=== PATIENT | female | born 1945 | race Caucasian/White ===

== ENCOUNTER 2017-10-17 10:19 | Emergency (ER) | payer MEDICARE, OTHER ==
[~2017-10-17] VITALS: Ht 172.7 cm; Wt 58.1 kg
[~2017-10-17 10:19] MED LIST: ADVAIR 250-501 EACH INH; ASPIR 8181 MG PO; ASPIRIN325; ASPIRIN81 M2; AVINZA 30 MG CA30 MG PO; B-12500 MC1 PO; BACITRACIN 500U30 G1 TOP; BACTRIM 400-801 EACH PO; BACTRIM DS TAB1 EACH; BACTRIM DS TAB1 EACH PO; BENADRYL25 MG PO; BIOTIN1 MG PO; BIOTIN10000 MC1 PO; BUSPAR; CALCIUM 500 +1 EAC5 PO; CARISOPRODOL 3350 MG PO; CEFTIN 250 MG250 MG PO; CEFUROXIME250 MG PO; CELEXA 20 MG TA20 M1 PO; CELEXA 20 MG TA20 MG PO; COLACE100 MG; COREG3.125 MG PO; COUMADIN 5 MG TA5 M1; DALMANE15 MG; DALMANE30 MG PO; FLEXERIL PO; FLOVENT DISKUS50 MCG; GLUCOPHAGE500 MG PO; GLUCOSAMINE HC500 MG PO; GLYCOLAX POWDER17 G1 PO; HYDROCODON-ACE1 EAC4 PO; HYDROCODON-ACE1 EAC5 PO; HYDROCODON-ACE1 EAC7 PO; HYDROXYZINE HCL25 M1 PO; IRON325 M1 PO; KEFLEX500 MG PO; LASIX 40 MG TAB40 M2; LASIX 40 MG TAB40 M2 PO; LEVAQUIN 500 M500 M2 PO; LEVOTHROID137 MCG PO; LEVOTHYROXIN0.137 M1 PO; LISINOPRIL2.5 M1 PO; MACROBID 100 M100 M1 PO; MELATONIN3 MG PO; METFORMIN HCL500 MG PO; MIRALAX17 G1 PO; MIRALAX255 GM; MORPHINE SULFAT15 MG PO; MORPHINE SULFAT30 M5 PO; MS CONTIN 60 MG60 M1 PO; MS CONTIN15 MG PO; MULTI VITAMIN1 EACH PO; NEURONTIN 300300 M1 PO; NITROFURANTOIN100 MG PO; NITROFURANTOIN50 M4 PO; NORCO 10-325 T1 EACH PO; NORCO 5-325 TA1 EACH PO; NYSTATIN 1100000 U/M SW&SWALLOW; PERCOCET 5-3251 EACH PO; PERCOCET 7.5-31 EACH; PHENAZOPYRIDIN200 M2 PO; PLAVIX 75 MG TA75 M1 PO; POTASSIUM GLUC500 MG PO; PRILOSEC 20 MG20 MG PO; PROMETHAZINE HC25 M1 PO; PROMETHAZINE HC25 M2 PO; RESTORIL30 MG PO; SILVADENE20 GM TP; TRAMADOL; TRAZODONE 150150 M1 PO; ULTRA-LIGHT RO1 EACH MC; UNICOMPLEX M TA1 TA1 PO; VERAPAMIL HCL40 MG; VERAPAMIL HCL40 MG PO; XANAX 0.25 MG0.25 MG PO; XANAX1 MG PO; ZPAK PO; ZYRTEC10 M2; [UNRECOGNIZED DRUG - OTHER] PO; [UNRECOGNIZED DRUG - REMARK]
[2017-10-17] MEDS ORDERED: LYRICA 50 MG50 MG PO (10:35)
[2017-10-17] MEDS ORDERED: KEFLEX500 M1 PO (12:07)
[2017-10-17 12:23] VITALS: BP 168/62
== END 2017-10-17 12:24 | disposition home or self-care (01) ==
LOC: M.ERS 10:19
DX: S81.012A Laceration without foreign body, left knee, initial encounter (principal); E11.40 Type 2 diabetes mellitus with diabetic neuropathy, unspecified; J45.909 Unspecified asthma, uncomplicated; F32.9 Major depressive disorder, single episode, unspecified; F41.9 Anxiety disorder, unspecified; I25.10 Atherosclerotic heart disease of native coronary artery without angina pectoris; E03.9 Hypothyroidism, unspecified; Z86.14 Personal history of Methicillin resistant Staphylococcus aureus infection; Z85.42 Personal history of malignant neoplasm of other parts of uterus; Z90.710 Acquired absence of both cervix and uterus; Z96.652 Presence of left artificial knee joint; Z85.43 Personal history of malignant neoplasm of ovary; Z88.5 Allergy status to narcotic agent; Z91.041 Radiographic dye allergy status; Z88.1 Allergy status to other antibiotic agents; Z88.8 Allergy status to other drugs, medicaments and biological substances; Z91.02 Food additives allergy status; X58.XXXA Exposure to other specified factors, initial encounter; Y93.89 Activity, other specified; Y92.89 Other specified places as the place of occurrence of the external cause; Y99.8 Other external cause status

== ENCOUNTER 2017-10-21 10:32 | Emergency (ER) | payer MEDICARE, OTHER ==
[~2017-10-21] VITALS: Ht 172.7 cm; Wt 59.0 kg
[~2017-10-21 10:32] MED LIST changes: +KEFLEX500 M1 PO; +LYRICA 50 MG50 MG PO
[2017-10-21] MEDS ORDERED: PREDNISONE 20 M20 M1 PO (10:54)
[2017-10-21 11:05] VITALS: BP 176/91
== END 2017-10-21 11:05 | disposition home or self-care (01) ==
LOC: M.ERS 10:32
DX: R21 Rash and other nonspecific skin eruption (principal); E11.9 Type 2 diabetes mellitus without complications; J45.909 Unspecified asthma, uncomplicated; F32.9 Major depressive disorder, single episode, unspecified; F41.9 Anxiety disorder, unspecified; E03.9 Hypothyroidism, unspecified; I25.10 Atherosclerotic heart disease of native coronary artery without angina pectoris; Z96.652 Presence of left artificial knee joint; Z85.43 Personal history of malignant neoplasm of ovary; Z85.42 Personal history of malignant neoplasm of other parts of uterus; Z98.890 Other specified postprocedural states; Z88.4 Allergy status to anesthetic agent; Z91.041 Radiographic dye allergy status; Z91.018 Allergy to other foods; Z88.6 Allergy status to analgesic agent; Z88.1 Allergy status to other antibiotic agents; Z88.8 Allergy status to other drugs, medicaments and biological substances

== ENCOUNTER 2017-10-27 10:24 | Emergency (ER) | payer MEDICARE, OTHER ==
[~2017-10-27] VITALS: Ht 172.7 cm; Wt 59.0 kg
[~2017-10-27 10:24] MED LIST changes: +PREDNISONE 20 M20 M1 PO
[2017-10-27] MEDS ORDERED: FLEXERIL PO (10:38)
[2017-10-27] MEDS ORDERED: KEFLEX250 MG PO (10:38)
[2017-10-27] MEDS ORDERED: ARICEPT 5 MG TAB5 MG PO (10:38)
[2017-10-27] MEDS ORDERED: OMEPRAZOLE40 MG PO (10:39)
[2017-10-27] MEDS ORDERED: SERTRALINE HCL50 MG PO (10:39)
[2017-10-27] MEDS ORDERED: CLEOCIN HCL150 MG PO (13:07)
[2017-10-27 13:29] VITALS: BP 127/55
== END 2017-10-27 13:30 | disposition home or self-care (01) ==
LOC: M.ERS 10:24
DX: S81.012D Laceration without foreign body, left knee, subsequent encounter (principal); E11.9 Type 2 diabetes mellitus without complications; E03.9 Hypothyroidism, unspecified; I25.10 Atherosclerotic heart disease of native coronary artery without angina pectoris; F32.9 Major depressive disorder, single episode, unspecified; F41.9 Anxiety disorder, unspecified; J45.909 Unspecified asthma, uncomplicated; Z85.42 Personal history of malignant neoplasm of other parts of uterus; Z85.43 Personal history of malignant neoplasm of ovary; Z88.5 Allergy status to narcotic agent; Z91.040 Latex allergy status; Z88.8 Allergy status to other drugs, medicaments and biological substances; Z98.890 Other specified postprocedural states; Z90.710 Acquired absence of both cervix and uterus; Z86.14 Personal history of Methicillin resistant Staphylococcus aureus infection; Z96.652 Presence of left artificial knee joint; X58.XXXD Exposure to other specified factors, subsequent encounter

== ENCOUNTER 2017-11-07 10:09 | Emergency (ER) | payer MEDICARE, OTHER ==
[~2017-11-07] VITALS: Ht 157.5 cm; Wt 68.0 kg
[~2017-11-07 10:09] MED LIST changes: +ARICEPT 5 MG TAB5 MG PO; +CLEOCIN HCL150 MG PO; +KEFLEX250 MG PO; +OMEPRAZOLE40 MG PO; +SERTRALINE HCL50 MG PO
[2017-11-07 10:40] VITALS: BP 152/78
== END 2017-11-07 10:41 | disposition home or self-care (01) ==
LOC: M.ERS 10:09
DX: S81.012D Laceration without foreign body, left knee, subsequent encounter (principal); E11.9 Type 2 diabetes mellitus without complications; E03.9 Hypothyroidism, unspecified; J45.909 Unspecified asthma, uncomplicated; F32.9 Major depressive disorder, single episode, unspecified; F41.9 Anxiety disorder, unspecified; I25.10 Atherosclerotic heart disease of native coronary artery without angina pectoris; Z90.710 Acquired absence of both cervix and uterus; Z85.43 Personal history of malignant neoplasm of ovary; Z96.652 Presence of left artificial knee joint; Z86.14 Personal history of Methicillin resistant Staphylococcus aureus infection; X58.XXXD Exposure to other specified factors, subsequent encounter

== ENCOUNTER 2017-11-13 09:53 | Emergency (ER) | payer MEDICARE, OTHER ==
[~2017-11-13] VITALS: Ht 170.2 cm; Wt 68.0 kg
[2017-11-13 10:33] LABS: ABSOLUTE EOSINOPHILS 0.2 thou/uL (0.0-0.7); EOSINOPHILS 2.1 %; HEMOGLOBIN 10.7 gm/dL (12.0-15.0); NUCLEATED RBCS 0 /100WBC
[2017-11-13 10:36] LABS: ABSOLUTE BASOPHILS 0.1 thou/uL (0.0-0.2); ABSOLUTE LYMPHOCYTES 0.8 thou/uL (0.8-5.3); ABSOLUTE MONOCYTES 0.7 thou/uL (0.0-1.2); ABSOLUTE NEUTROPHILS 5.6 thou/uL (1.6-8.1); HEMATOCRIT 32.1 % (37.0-47.0); LYMPHOCYTES 10.4 %; MCH 33.9 pg (26.0-34.0); MCHC 33.3 g/dL (28.0-37.0); MCV 101.7 fL (80.0-100.0); MONOCYTES 9.3 %; MPV 6.3 fl. (7.2-11.1); PLATELET COUNT* 295 thou/uL (150-400); POLYS 77.2 %; RBC 3.16 mil/uL (4.20-5.00); RDW-CV 18.5 % (10.5-14.5); WBC 7.2 thou/uL (4.0-11.0)
[2017-11-13 10:42] LABS: APTT 25.4 Seconds (25.0-31.3); PROTIME 9.6 Seconds (9.20-11.50)
[2017-11-13 10:44] LABS: CALCIUM 8.9 mg/dL (8.5-10.1); CREATININE 0.6 mg/dL (0.6-1.3); POTASSIUM 3.6 mmol/L (3.5-5.1)
[2017-11-13 10:47] LABS: ALBUMIN 3.2 g/dL (3.4-5.0); TOTAL BILIRUBIN 0.1 mg/dL (<0.1-1.0); TOTAL PROTEIN 6.6 g/dL (6.4-8.2)
[2017-11-13 10:55] LABS: URINE BILIRUBIN NEGATIVE (Negative); URINE BLOOD NEGATIVE (Negative); URINE CLARITY CLEAR; URINE COLOR YELLOW; URINE GLUCOSE-RANDOM NEGATIVE (Negative); URINE KETONES NEGATIVE (Negative); URINE LEUKOCYTES-REFLEX NEGATIVE (Negative); URINE NITRITE-REFLEX NEGATIVE (Negative); URINE PROTEIN NEGATIVE (Negative); URINE SPECIFIC GRAVITY 1.015 (1.005-1.030); URINE UROBILINOGEN 0.2 E.U./dl (0.2-1.0)
[2017-11-13 11:08] VITALS: BP 153/76
--- NOTE | 2017-11-13 14:56 | EKG ---
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 TRAN : 1945 Requested By: Maverick Mandujano Order Number: [id number] MD: Indra Jones Measurements Intervals [place] Rate: 87 P: 78 [place]: 167 QRS: -40 QRSD: 114 T: 83 QT: 350 QTc: 421 Interpretive Statements Sinus rhythm LVH with secondary repolarization abnormality Anterior Q waves, possibly due to LVH Compared to ECG 11/13/2016 12:45:37 Left ventricular hypertrophy now present T-wave abnormality no longer present Prolonged QT interval no longer present Electronically Signed On 11-13-2017 14:56:02 CONFERENCE PRODUCER by Indra Jones [email or web address] <ELECTRONICALLY SIGNED> By: Indra Jones MD, [facility] 11/13/17 1456 1022 1022 Indra Jones MD, [facility] /EPI
== END 2017-11-13 11:08 | disposition home or self-care (01) ==
LOC: M.ERS 09:53
PROVIDERS: Family Medicine
DX: Z71.1 Person with feared health complaint in whom no diagnosis is made (principal); E11.9 Type 2 diabetes mellitus without complications; M79.7 Fibromyalgia; J45.909 Unspecified asthma, uncomplicated; F32.9 Major depressive disorder, single episode, unspecified; F41.9 Anxiety disorder, unspecified; I25.10 Atherosclerotic heart disease of native coronary artery without angina pectoris; E03.9 Hypothyroidism, unspecified; Z96.652 Presence of left artificial knee joint; Z90.49 Acquired absence of other specified parts of digestive tract; Z85.43 Personal history of malignant neoplasm of ovary; Z90.710 Acquired absence of both cervix and uterus; Z85.42 Personal history of malignant neoplasm of other parts of uterus; Z86.14 Personal history of Methicillin resistant Staphylococcus aureus infection

== ENCOUNTER → 2017-11-25 | Outpatient (CLI) | payer MEDICARE, OTHER ==
[~2017-11-25] MED LIST changes: +AMARYL2 MG PO; +BIOTIN0.5 GM PO; +CARAFATE 1 GM TA1 G1 PO; +CEPHALEXIN250 MG PO; +CIPROFLOXACIN500 M1 PO; +CITRATE OF MAG296 ML PO; +CONSTULOSE10 GM/152 PO; +FLAGYL500 MG PO; +FOLBIC RF TABL1 EACH PO; +HYDROCODONE-AP1 EAC6 PO; +INDOCIN25 MG/5 ML PO; +INDOMETHACIN 5050 M1 PO; +KLOR-CON 1010 MEQ PO; +LACTULOSE10 GM/152 PO; +LEVAQUIN 750 M750 MG PO; +LIPITOR 20 MG T20 M1 PO; +MAGOX 400400 MG PO; +MUCINEX600 MG PO; +NABUMETONE 750750 M1 PO; +TUMS PO; +ULTRAM 50MG TAB50 MG PO; +ZOFRAN ODT4 MG SUBLING
== END ==
LOC: M.WC 01:21
DX: T81.89XA Other complications of procedures, not elsewhere classified, initial encounter (principal); S81.002A Unspecified open wound, left knee, initial encounter; E11.9 Type 2 diabetes mellitus without complications; J45.909 Unspecified asthma, uncomplicated; I25.10 Atherosclerotic heart disease of native coronary artery without angina pectoris; E03.9 Hypothyroidism, unspecified; F32.9 Major depressive disorder, single episode, unspecified; F41.9 Anxiety disorder, unspecified; Z85.43 Personal history of malignant neoplasm of ovary; Z85.42 Personal history of malignant neoplasm of other parts of uterus; Z90.710 Acquired absence of both cervix and uterus; Z96.652 Presence of left artificial knee joint; W19.XXXA Unspecified fall, initial encounter; Y93.89 Activity, other specified; Y92.89 Other specified places as the place of occurrence of the external cause; Y99.8 Other external cause status; Y83.8 Other surgical procedures as the cause of abnormal reaction of the patient, or of later complication, without mention of misadventure at the time of the procedure

== ENCOUNTER 2017-12-06 09:54 | Emergency (ER) | payer MEDICARE, OTHER ==
[~2017-12-06] VITALS: Ht 172.7 cm; Wt 60.8 kg
[~2017-12-06 09:54] MED LIST changes: -AMARYL2 MG PO; -BIOTIN0.5 GM PO; -CARAFATE 1 GM TA1 G1 PO; -CEPHALEXIN250 MG PO; -CIPROFLOXACIN500 M1 PO; -CITRATE OF MAG296 ML PO; -CONSTULOSE10 GM/152 PO; -FLAGYL500 MG PO; -FOLBIC RF TABL1 EACH PO; -HYDROCODONE-AP1 EAC6 PO; -INDOCIN25 MG/5 ML PO; -INDOMETHACIN 5050 M1 PO; -KLOR-CON 1010 MEQ PO; -LACTULOSE10 GM/152 PO; -LEVAQUIN 750 M750 MG PO; -LIPITOR 20 MG T20 M1 PO; -MAGOX 400400 MG PO; -MUCINEX600 MG PO; -NABUMETONE 750750 M1 PO; -TUMS PO; -ULTRAM 50MG TAB50 MG PO; -ZOFRAN ODT4 MG SUBLING
[2017-12-06 10:14] LABS: URINE BILIRUBIN NEGATIVE (Negative); URINE BLOOD 2+ (Negative); URINE CLARITY CLEAR; URINE COLOR YELLOW; URINE GLUCOSE-RANDOM NEGATIVE (Negative); URINE KETONES NEGATIVE (Negative); URINE LEUKOCYTES-REFLEX NEGATIVE (Negative); URINE NITRITE-REFLEX NEGATIVE (Negative); URINE PROTEIN NEGATIVE (Negative); URINE SPECIFIC GRAVITY 1.015 (1.005-1.030); URINE UROBILINOGEN 0.2 E.U./dl (0.2-1.0)
[2017-12-06 10:21] LABS: CASTS None Seen /LPF (None Seen); CRYSTALS None Seen /LPF (None Seen); MUCUS 0-3 Light strn/LPF (None Seen); SQUAMOUS >10 Many /LPF (0-3)
[2017-12-06 10:22] LABS: BACTERIA-REFLEX None Seen /HPF (None Seen); URINE RBC >20 Many /HPF (0-2); URINE WBC-REFLEX 0-5 Rare /HPF (0-5)
[2017-12-06 11:08] LABS: ABSOLUTE BASOPHILS 0.1 thou/uL (0.0-0.2); ABSOLUTE EOSINOPHILS 0.1 thou/uL (0.0-0.7); ABSOLUTE LYMPHOCYTES 0.7 thou/uL (0.8-5.3); ABSOLUTE MONOCYTES 0.5 thou/uL (0.0-1.2); ABSOLUTE NEUTROPHILS 4.4 thou/uL (1.6-8.1); BASOPHILS 1.2 %; EOSINOPHILS 2.5 %; HEMATOCRIT 28.9 % (37.0-47.0); HEMOGLOBIN 9.5 gm/dL (12.0-15.0); LYMPHOCYTES 11.8 %; MCH 33.4 pg (26.0-34.0); MCHC 32.8 g/dL (28.0-37.0); MCV 101.8 fL (80.0-100.0); MONOCYTES 8.7 %; MPV 6.7 fl. (7.2-11.1); NUCLEATED RBCS 0 /100WBC; PLATELET COUNT* 378 thou/uL (150-400); POLYS 75.8 %; RBC 2.84 mil/uL (4.20-5.00); RDW-CV 17.7 % (10.5-14.5); WBC 5.8 thou/uL (4.0-11.0)
[2017-12-06 11:13] LABS: CALCIUM 8.8 mg/dL (8.5-10.1); CREATININE 0.7 mg/dL (0.6-1.3); POTASSIUM 3.7 mmol/L (3.5-5.1)
[2017-12-06 11:17] LABS: ALBUMIN 3.1 g/dL (3.4-5.0); TOTAL BILIRUBIN 0.2 mg/dL (<0.1-1.0); TOTAL PROTEIN 6.2 g/dL (6.4-8.2)
[2017-12-06 12:35] VITALS: BP 153/82
== END 2017-12-06 12:36 | disposition home or self-care (01) ==
LOC: M.ERS 09:54
PROVIDERS: Family Medicine
DX: M54.9 Dorsalgia, unspecified (principal); E11.9 Type 2 diabetes mellitus without complications; M79.7 Fibromyalgia; I25.10 Atherosclerotic heart disease of native coronary artery without angina pectoris; F32.9 Major depressive disorder, single episode, unspecified; E03.9 Hypothyroidism, unspecified; J45.909 Unspecified asthma, uncomplicated; F41.9 Anxiety disorder, unspecified; Z90.710 Acquired absence of both cervix and uterus; Z88.8 Allergy status to other drugs, medicaments and biological substances; Z88.5 Allergy status to narcotic agent; Z91.041 Radiographic dye allergy status; Z91.02 Food additives allergy status; Z96.652 Presence of left artificial knee joint; Z86.14 Personal history of Methicillin resistant Staphylococcus aureus infection

== ENCOUNTER → 2017-12-09 | Outpatient (CLI) | payer MEDICARE, OTHER ==
[~2017-12-09] MED LIST changes: +AMARYL2 MG PO; +BIOTIN0.5 GM PO; +CARAFATE 1 GM TA1 G1 PO; +CEPHALEXIN250 MG PO; +CIPROFLOXACIN500 M1 PO; +CITRATE OF MAG296 ML PO; +CONSTULOSE10 GM/152 PO; +FLAGYL500 MG PO; +FOLBIC RF TABL1 EACH PO; +HYDROCODONE-AP1 EAC6 PO; +INDOCIN25 MG/5 ML PO; +INDOMETHACIN 5050 M1 PO; +KLOR-CON 1010 MEQ PO; +LACTULOSE10 GM/152 PO; +LEVAQUIN 750 M750 MG PO; +LIPITOR 20 MG T20 M1 PO; +MAGOX 400400 MG PO; +MUCINEX600 MG PO; +NABUMETONE 750750 M1 PO; +TUMS PO; +ULTRAM 50MG TAB50 MG PO; +ZOFRAN ODT4 MG SUBLING
== END ==
LOC: M.WC 12-02 03:34
DX: T81.89XD Other complications of procedures, not elsewhere classified, subsequent encounter (principal); E11.9 Type 2 diabetes mellitus without complications; J45.909 Unspecified asthma, uncomplicated; E03.9 Hypothyroidism, unspecified; I25.10 Atherosclerotic heart disease of native coronary artery without angina pectoris; F32.9 Major depressive disorder, single episode, unspecified; F41.9 Anxiety disorder, unspecified; Z85.42 Personal history of malignant neoplasm of other parts of uterus; Z90.710 Acquired absence of both cervix and uterus; Z96.652 Presence of left artificial knee joint; Z85.43 Personal history of malignant neoplasm of ovary; Y83.8 Other surgical procedures as the cause of abnormal reaction of the patient, or of later complication, without mention of misadventure at the time of the procedure

== ENCOUNTER → 2017-12-16 | Outpatient (CLI) | payer MEDICARE, OTHER | LOC: M.WC 02:25 | DX: T81.89XD Other complications of procedures, not elsewhere classified, subsequent encounter (principal); E11.9 Type 2 diabetes mellitus without complications; E03.9 Hypothyroidism, unspecified; I25.10 Atherosclerotic heart disease of native coronary artery without angina pectoris; J45.909 Unspecified asthma, uncomplicated; F32.9 Major depressive disorder, single episode, unspecified; F41.9 Anxiety disorder, unspecified; Z90.710 Acquired absence of both cervix and uterus; Z85.43 Personal history of malignant neoplasm of ovary; Z96.652 Presence of left artificial knee joint; Y83.8 Other surgical procedures as the cause of abnormal reaction of the patient, or of later complication, without mention of misadventure at the time of the procedure ==

== ENCOUNTER → 2017-12-23 | Outpatient (CLI) | payer MEDICARE, OTHER | LOC: M.WC 02:54 | DX: T81.89XD Other complications of procedures, not elsewhere classified, subsequent encounter (principal); J45.909 Unspecified asthma, uncomplicated; F32.9 Major depressive disorder, single episode, unspecified; F41.9 Anxiety disorder, unspecified; I25.10 Atherosclerotic heart disease of native coronary artery without angina pectoris; E03.9 Hypothyroidism, unspecified; Z85.43 Personal history of malignant neoplasm of ovary; Y83.8 Other surgical procedures as the cause of abnormal reaction of the patient, or of later complication, without mention of misadventure at the time of the procedure ==

== ENCOUNTER → 2017-12-30 | Outpatient (CLI) | payer MEDICARE, OTHER | LOC: M.WC 00:33 | DX: T81.89XD Other complications of procedures, not elsewhere classified, subsequent encounter (principal); E11.9 Type 2 diabetes mellitus without complications; J45.909 Unspecified asthma, uncomplicated; F41.9 Anxiety disorder, unspecified; F32.9 Major depressive disorder, single episode, unspecified; I25.10 Atherosclerotic heart disease of native coronary artery without angina pectoris; E03.9 Hypothyroidism, unspecified; Z85.43 Personal history of malignant neoplasm of ovary; Z90.710 Acquired absence of both cervix and uterus; Y83.8 Other surgical procedures as the cause of abnormal reaction of the patient, or of later complication, without mention of misadventure at the time of the procedure ==

== ENCOUNTER → 2018-01-06 | Outpatient (CLI) | payer MEDICARE, OTHER | LOC: M.WC 01:41 | DX: T81.89XD Other complications of procedures, not elsewhere classified, subsequent encounter (principal); E11.9 Type 2 diabetes mellitus without complications; J45.909 Unspecified asthma, uncomplicated; F32.9 Major depressive disorder, single episode, unspecified; I25.10 Atherosclerotic heart disease of native coronary artery without angina pectoris; F41.9 Anxiety disorder, unspecified; E03.9 Hypothyroidism, unspecified; Z85.42 Personal history of malignant neoplasm of other parts of uterus; Z90.710 Acquired absence of both cervix and uterus; Y83.8 Other surgical procedures as the cause of abnormal reaction of the patient, or of later complication, without mention of misadventure at the time of the procedure ==

== ENCOUNTER → 2018-01-20 | Outpatient (CLI) | payer MEDICARE, OTHER | LOC: M.WC 03:08 | DX: T81.89XD Other complications of procedures, not elsewhere classified, subsequent encounter (principal); E11.9 Type 2 diabetes mellitus without complications; F32.9 Major depressive disorder, single episode, unspecified; J45.909 Unspecified asthma, uncomplicated; F41.9 Anxiety disorder, unspecified; I25.10 Atherosclerotic heart disease of native coronary artery without angina pectoris; E03.9 Hypothyroidism, unspecified; Z85.43 Personal history of malignant neoplasm of ovary; Z85.42 Personal history of malignant neoplasm of other parts of uterus; Z90.710 Acquired absence of both cervix and uterus; Y83.8 Other surgical procedures as the cause of abnormal reaction of the patient, or of later complication, without mention of misadventure at the time of the procedure ==

== ENCOUNTER → 2018-01-27 | Outpatient (CLI) | payer MEDICARE, OTHER | LOC: M.WC 01:29 | DX: T81.89XD Other complications of procedures, not elsewhere classified, subsequent encounter (principal); I25.10 Atherosclerotic heart disease of native coronary artery without angina pectoris; E03.9 Hypothyroidism, unspecified; J45.909 Unspecified asthma, uncomplicated; F41.9 Anxiety disorder, unspecified; F32.9 Major depressive disorder, single episode, unspecified; Z90.710 Acquired absence of both cervix and uterus; Z85.43 Personal history of malignant neoplasm of ovary; Z96.652 Presence of left artificial knee joint; Y83.8 Other surgical procedures as the cause of abnormal reaction of the patient, or of later complication, without mention of misadventure at the time of the procedure ==

== ENCOUNTER 2018-03-22 08:41 | Inpatient (IN) | payer MEDICARE, OTHER ==
[2018-03-22] VITALS (8 sets, daily range): BP systolic 85–129; BP diastolic 29–69
[~2018-03-22] VITALS: Ht 172.7 cm; Wt 62.3 kg
[~2018-03-22 08:41] MED LIST changes: -AMARYL2 MG PO; -BIOTIN0.5 GM PO; -CARAFATE 1 GM TA1 G1 PO; -CEPHALEXIN250 MG PO; -CIPROFLOXACIN500 M1 PO; -CITRATE OF MAG296 ML PO; -CONSTULOSE10 GM/152 PO; -FLAGYL500 MG PO; -FOLBIC RF TABL1 EACH PO; -HYDROCODONE-AP1 EAC6 PO; -INDOCIN25 MG/5 ML PO; -INDOMETHACIN 5050 M1 PO; -KLOR-CON 1010 MEQ PO; -LACTULOSE10 GM/152 PO; -LEVAQUIN 750 M750 MG PO; -LIPITOR 20 MG T20 M1 PO; -MAGOX 400400 MG PO; -MUCINEX600 MG PO; -NABUMETONE 750750 M1 PO; -TUMS PO; -ULTRAM 50MG TAB50 MG PO; -ZOFRAN ODT4 MG SUBLING
[2018-03-22] MEDS ORDERED: INDOCIN25 MG/5 ML PO (09:09)
[2018-03-22 09:49] LABS: HEMATOCRIT 35.1 % (37.0-47.0); HEMOGLOBIN 10.8 gm/dL (12.0-15.0); MCH 25.7 pg (26.0-34.0); MCHC 30.7 g/dL (28.0-37.0); MCV 83.7 fL (80.0-100.0); MPV 6.5 fl. (7.2-11.1); NUCLEATED RBCS 0 /100WBC; PLATELET COUNT* 574 thou/uL (150-400); RDW-CV 18.9 % (10.5-14.5); WBC 25.4 thou/uL (4.0-11.0)
[2018-03-22 10:00] LABS: ANION GAP 15 mmol/L (7-16); BUN 25 mg/dL (7-18); CHLORIDE 100 mmol/L (98-107); CO2 23 mmol/L (21-32); CREATININE 1.3 mg/dL (0.6-1.3); GLUCOSE 81 mg/dL (70-99); POTASSIUM 4.9 mmol/L (3.5-5.1); SODIUM 138 mmol/L (136-145)
[2018-03-22 10:08] LABS: ABSOLUTE BASOPHILS 0.3 thou/uL (0.0-0.2); ABSOLUTE EOSINOPHILS 0.3 thou/uL (0.0-0.7); ABSOLUTE LYMPHOCYTES 0.5 thou/uL (0.8-5.3); ABSOLUTE MONOCYTES 0.5 thou/uL (0.0-1.2); ABSOLUTE NEUTROPHILS 23.9 thou/uL (1.6-8.1); ANISOCYTOSIS 1+; PLATELET ESTIMATE INCREASED
[2018-03-22 10:11] LABS: ALBUMIN 3.5 g/dL (3.4-5.0); ALKALINE PHOSPHATASE 356 U/L (46-116); LIPASE 114 U/L (73-393); NT-PRO BRAIN NAT PEPTIDE 899 pg/mL (<300); SGOT 26 U/L (15-37); SGPT 20 U/L (30-65); TOTAL BILIRUBIN 0.4 mg/dL (<0.1-1.0); TOTAL PROTEIN 7.3 g/dL (6.4-8.2); TROPONIN-I LEVEL <0.06 ng/mL (<0.06)
[2018-03-22 10:15] LABS: ICTOTEST (BILI CONFIRMATORY) Positive (Negative); URINE BILIRUBIN 2+ (Negative); URINE BLOOD NEGATIVE (Negative); URINE CLARITY SL CLOUDY; URINE COLOR BROWN; URINE GLUCOSE-RANDOM NEGATIVE (Negative); URINE KETONES TRACE (Negative); URINE LEUKOCYTES-REFLEX NEGATIVE (Negative); URINE NITRITE-REFLEX NEGATIVE (Negative); URINE PROTEIN TRACE (Negative); URINE SPECIFIC GRAVITY 1.025 (1.005-1.030)
[2018-03-22 10:25] LABS: APTT 52.6 Seconds (25.0-31.3); INR 1.1; PROTIME 10.5 Seconds (9.20-11.50)
[2018-03-22 12:37] LABS: MAGNESIUM 2.9 mg/dL (1.8-2.4); PHOSPHORUS* 4.5 mg/dL (2.5-4.9)
[2018-03-22 14:44] LABS: URINE BLOOD NEGATIVE (Negative); URINE CLARITY CLEAR; URINE COLOR YELLOW; URINE GLUCOSE-RANDOM NEGATIVE (Negative); URINE KETONES NEGATIVE (Negative); URINE LEUKOCYTES-REFLEX NEGATIVE (Negative); URINE NITRITE-REFLEX NEGATIVE (Negative); URINE PROTEIN NEGATIVE (Negative); URINE SPECIFIC GRAVITY 1.025 (1.005-1.030); URINE UROBILINOGEN 0.2 E.U./dl (0.2-1.0)
[2018-03-22 14:48] LABS: ICTOTEST (BILI CONFIRMATORY) Negative (Negative); URINE BILIRUBIN 1+ (Negative)
[2018-03-22 16:56] LABS: BE -6.8 mmol/L (-2 to +3); PCO2 VENOUS 45.9 mmHg (41.0-51.0)
[2018-03-22 16:58] LABS: PO2 VENOUS 37.3 mmHg (35.0-45.0)
[2018-03-22 17:08] LABS: HEMATOCRIT 32.1 % (37.0-47.0); HEMOGLOBIN 9.9 gm/dL (12.0-15.0); MCH 25.9 pg (26.0-34.0); MCHC 30.9 g/dL (28.0-37.0); MPV 6.6 fl. (7.2-11.1); NUCLEATED RBCS 0 /100WBC; PLATELET COUNT* 542 thou/uL (150-400); RBC 3.82 mil/uL (4.20-5.00); RDW-CV 18.7 % (10.5-14.5); WBC 26.7 thou/uL (4.0-11.0)
[2018-03-22 17:14] LABS: CALCIUM 9.5 mg/dL (8.5-10.1); CREATININE 1.3 mg/dL (0.6-1.3); POTASSIUM 5.7 mmol/L (3.5-5.1)
[2018-03-22 17:16] LABS: APTT 59.3 Seconds (25.0-31.3); INR 1.1; PROTIME 10.7 Seconds (9.20-11.50)
[2018-03-22 17:19] LABS: MAGNESIUM 2.8 mg/dL (1.8-2.4); TOTAL BILIRUBIN 0.4 mg/dL (<0.1-1.0); TOTAL PROTEIN 6.2 g/dL (6.4-8.2)
[2018-03-22 17:33] LABS: ABSOLUTE LYMPHOCYTES 0.8 thou/uL (0.8-5.3); ABSOLUTE MONOCYTES 0.5 thou/uL (0.0-1.2); ABSOLUTE NEUTROPHILS 25.4 thou/uL (1.6-8.1)
[2018-03-22 17:34] LABS: ANISOCYTOSIS 1+; CLUMPED PLTS OCCASIONAL; OVALOCYTES Occasional; PLATELET ESTIMATE INCREASED; POIKILOCYTOSIS Occasional
[2018-03-23] VITALS (8 sets, daily range): BP systolic 110–129; BP diastolic 32–52
[2018-03-23 03:35] LABS: HEMATOCRIT 28.5 % (37.0-47.0); HEMOGLOBIN 8.8 gm/dL (12.0-15.0); MCV 83.8 fL (80.0-100.0); MPV 6.7 fl. (7.2-11.1); RBC 3.4 mil/uL (4.20-5.00); RDW-CV 18.6 % (10.5-14.5); WBC 13.1 thou/uL (4.0-11.0)
[2018-03-23 03:46] LABS: ALBUMIN 2.5 g/dL (3.4-5.0); CALCIUM 8.3 mg/dL (8.5-10.1); CREATININE 1.1 mg/dL (0.6-1.3); MAGNESIUM 2.1 mg/dL (1.8-2.4); TOTAL BILIRUBIN 0.3 mg/dL (<0.1-1.0); TOTAL PROTEIN 5.3 g/dL (6.4-8.2)
[2018-03-23 03:51] LABS: POTASSIUM 4.2 mmol/L (3.5-5.1)
--- NOTE | 2018-03-23 11:10 | EKG ---
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: : 1945 Requested By: John Blake Order Number: [id number] MD: Indra Jones Measurements Intervals [place] Rate: 77 P: 71 [place]: 170 QRS: -44 QRSD: 115 T: 188 QT: 366 QTc: 415 Interpretive Statements Sinus rhythm old septal VA nonspecific st changes Compared to ECG 11/13/2017 10:22:34 Left ventricular hypertrophy no longer present Electronically Signed On 03-23-2018 11:10:37 CDT by Indra Jones [email or web address] <ELECTRONICALLY SIGNED> By: Indra Jones MD, [facility] 03/23/18 1110 0932 0932 Indra Jones MD, [facility] /EPI
--- NOTE | 2018-03-23 14:48 | 2DMMODE ---
[place] [address] 2 D/M-MODE ECHOCARDIOGRAM Name: YIMI FULLER Room: [address] IN [facility]#: [id number] Admission: 03/22/18 Attend Phys: Aroldo Coker Discharge: Date of : 47 Date of Service: 03/23/18 1448 Report #: [id number] THIS REPORT FOR: //name// APPROVED REPORT Study performed: 03/23/2018 09:55:32 EXAM: Comprehensive 2D, Doppler, and color-flow Echocardiogram Patient Location: In-Patient Room #: 003 Status: routine BSA: 1.74 HR: 94 bpm BP: 114/32 mmHg Rhythm: NSR Other Information Study Quality: Good Indications Sepsis 2D Dimensions LVEF(%): 68.06 (>50%) IVSd: 12.54 (7-11mm) LVOT Diam: 19.20 (18-24mm) LVDd: 40.85 mm PWd: 9.56 (7-11mm) Ascending Ao: 25.42 (22-36mm) LVDs: 25.52 (25-40mm) Aortic Root: 27.81 mm Mccoy's LVEF: 68.06 % Volumes Left Atrial Volume (Systole) LA ESV Index: 48.80 mL/m2 Aortic Valve AoV Peak Dm.: 1.77 m/s AO Peak Gr.: 12.48 mmHg LVOT Max P.63 mmHg AO Mean Gr.: 7.28 mmHg LVOT Mean P.98 mmHg LVOT Max V: 1.38 m/s AO V2 VTI: 30.30 cm LVOT Mean V: 0.92 m/s JESSICA (VTI): 2.47 cm2 LVOT V1 VTI: 25.82 cm Mitral Valve E/A Ratio: 0.86 [place] [address] 2 D/M-MODE ECHOCARDIOGRAM Name: YIMI FULLER Room: [address] IN .R.#: [id number] Admission: 03/22/18 Attend Phys: Aroldo Coker Discharge: Date of : 47 Date of Service: 03/23/18 1448 Report #: [id number] MV Decel. Time: 241.85 ms MV E Max Dm.: 1.36 m/s MV PHT: 70.14 ms MVA (PHT): 3.14 cm2 TDI E/Lateral E': 13.60 E/Medial E': 9.07 Medial E' Dm.: 0.15 m/s Lateral E' Dm.: 0.10 m/s Pulmonary Valve PV Peak Dm.: 1.82 m/s PV Peak Gr.: 13.27 mmHg Tricuspid Valve TR Peak Gr.: 31.64 mmHg RVSP: 36.00 mmHg Left Ventricle The left ventricle is normal size. There is normal LV segmental wall motion. There is normal left ventricular wall thickness. Left ventricular systolic function is normal. The left ventricular ejection fraction is within the normal range. LVEF is 55-60%. Grade I - abnormal relaxation pattern. Right Ventricle The right ventricle is normal size. The right ventricular systolic function is normal. Atria Left atrium is moderately dilated. The right atrium size is normal. Aortic Valve The aortic valve is normal in structure. No aortic regurgitation is present. There is no aortic valvular stenosis. Mitral Valve There is mitral annular calcification. Mild mitral regurgitation. No evidence of mitral valve stenosis. Tricuspid Valve The tricuspid valve is normal in structure. Mild tricuspid regurgitation. The RVSP is 35-40 mmHg. Pulmonic Valve The pulmonary valve is normal in structure. [place] [address] 2 D/M-MODE ECHOCARDIOGRAM Name: ALINAYIMI MILAN Room: [address] IN .R.#: [id number] Admission: 03/22/18 Attend Phys: Aroldo Coker Discharge: Date of : 47 Date of Service: 03/23/18 1448 Report #: [id number] Great Vessels The aortic root is normal in size. IVC is normal in size and collapses with >50% inspiration Pericardium There is no pericardial effusion. <Conclusion> LVEF is 55-60%. Left atrium is moderately dilated. Mild mitral regurgitation. Mild tricuspid regurgitation. The RVSP is 35-40 mmHg. <ELECTRONICALLY SIGNED> By: Indra Jones MD, [facility] 03/23/18 1448 1448 1448 Indra Jones MD, [facility] /INF
[2018-03-23] MEDS ORDERED: LIPITOR 20 MG T20 M1 PO (18:35)
[2018-03-23] MEDS ORDERED: KEFLEX250 MG PO (18:36)
[2018-03-23] MEDS ORDERED: AMARYL2 MG PO (18:39)
[2018-03-23] MEDS ORDERED: CONSTULOSE10 GM/152 PO (18:40)
[2018-03-23] MEDS ORDERED: CARAFATE 1 GM TA1 G1 PO (18:40)
[2018-03-23 19:09] LABS: eGFR IF AFRICAN AMERICAN 65 (>59)
[2018-03-24] VITALS: BP 162/66; BP 95/49
[2018-03-24 03:44] VITALS: BP 141/56
[2018-03-24 05:34] LABS: CALCIUM 8.5 mg/dL (8.5-10.1); CREATININE 0.8 mg/dL (0.6-1.3); POTASSIUM 3.4 mmol/L (3.5-5.1)
--- NOTE | 2018-03-24 07:10 | CON ---
[address] [address] CONSULTATION Name: YIMI FULLER Room: [address] IN M.R.#: [id number] Admission: 03/22/18 Attend Phys: Aroldo Elam, Discharge: Date of : 47 Report #: [id number] THIS REPORT FOR: //name// CC: Live Elam DATE OF SERVICE: 03/23/2018 INFECTIOUS DISEASE CONSULTATION ATTENDING PHYSICIAN: Aroldo Elam MD REASON FOR CONSULTATION: Sepsis. HISTORY OF PRESENT ILLNESS: Chart reviewed, patient examined. This is a 72-year-old with history of diabetes mellitus type 2 as well as fibromyalgia who has somewhat of a vague history, presented to the Emergency Room complaining of cough for the last couple of days, had production of what she describes as yellowish sputum, however, and focused more on her abdominal related pain. Imaging suggested obstipation. She did have extensive amount of stool, which she has passed, large specimen. On questioning about fevers, she states she is having it for several days to weeks, although it is not clear, she has been afebrile since admission. On evaluation, she was found to have lactic acidemia and a markedly elevated white count of 25,000. Blood cultures were collected and they are sterile thus far. Urinalysis was unremarkable. CT showed atelectasis at the bases, could not exclude pneumonitis, previous cholecystectomy. Chest x-ray showed lungs to be clear. She was empirically started on antibiotics with cefepime, levofloxacin, vancomycin. She is quite uncomfortable at this point, difficult to try to get additional history. She is quite restless. ALLERGIES: LISTED TO MUSHROOMS, CONTRAST DYE, PHENOBARBITAL, PROCHLORPERAZINE, TRIMETHOBENZAMIDE, MOMETASONE, FENTANYL, SUMATRIPTAN, ERGOLOID, NALBUPHINE, BUTORPHANOL, NALOXONE, KETOROLAC, FORMOTEROL, PREGABALIN. CURRENT MEDICATIONS: Include trazodone, levofloxacin, sertraline, donepezil, cyclobenzaprine, alprazolam, melatonin, pantoprazole, vancomycin, enoxaparin, ipratropium and albuterol inhaler, levothyroxine. PAST MEDICAL HISTORY: As described above, diabetes, myalgias, has hypothyroidism, nephrolithiasis, ovarian cancer, previous David shunt, asthma, depression and anxiety, atherosclerotic coronary artery disease, several orthopedic surgeries. SOCIAL HISTORY: Nonsmoker, [place] [address] CONSULTATION Name: YIMI FULLER Room: [address]#: [id number] Admission: 03/22/18 Attend Phys: Aroldo Elam, Discharge: Date of : 47 Report #: [id number] FAMILY HISTORY: Noncontributory. REVIEW OF SYSTEMS: As above. PHYSICAL EXAMINATION: GENERAL: She is unkempt. She is in kgqd-af-qlfhygmn distress, quite restless, appears chronically ill, undernourished. VITAL SIGNS: Temperature 97.6, pulse 95, respirations 15, blood pressure 114/32. SKIN: Warm, dry, no rashes. HEENT: Otherwise, unremarkable. NECK: Supple. LUNGS: Scattered coarse breath sounds bilaterally. HEART: Regular. Borderline tachycardic. I do not appreciate a murmur. ABDOMEN: Soft, there are no peritoneal signs. I do not appreciate any masses. GENITOURINARY AND RECTAL: Deferred. LABORATORY DATA: Blood cultures are sterile thus far. Most recent CBC: White count of 13.1 down from 25.4, H and H 10.8 and 35.1, platelets of 574. Did have lymphocytopenia of 500 and a basophilia of 300 with mostly neutrophilia. Lactic acid initially was 3.2, peaked at 3.4, now it is down to 1.2. Comprehensive profile, initially she had a sodium of 138, potassium 4.9, chloride 100, bicarbonate is 32, anion gap of 15, BUN and creatinine 25 and 1.3, glucose of 81. LFTs unremarkable. Calcium was 11.0, alkaline phosphatase of 356. A repeat calcium this morning, however, was 9.5. Urinalysis unremarkable. Chest x-ray as noted above, felt to be clear, although the CT did show some basilar changes. ASSESSMENT: Abdominal pain associated with some lactic acidemia, cannot entirely exclude pneumonitis. The white count has responded with a diminishment as has lactic acidemia. We will continue current empiric therapy for at least another 24 hours. We will see how she does clinically, await blood cultures, address her obstipation, monitor expectantly. She is certainly at risk for other types of nosocomial-related infectious complications. May need to evaluate if indeed she has had a month of fevers, certainly warrants that evaluation well. <ELECTRONICALLY SIGNED> By: Bryan Matson MD 03/24/18 0710 0950 1243Joluis Matson MD /nt
[2018-03-24 08:00] VITALS: BP 108/86
[2018-03-24 10:07] LABS: PARATHYROID HORMONE 60 pg/mL (15-65)
[2018-03-24 15:52] VITALS: BP 153/57
[2018-03-24 20:00] VITALS: BP 168/67
[2018-03-25] VITALS: BP 145/53
[2018-03-25 04:00] VITALS: BP 137/46
[2018-03-25 08:00] VITALS: BP 181/77
[2018-03-25 09:06] LABS: CALCIUM 9.6 mg/dL (8.5-10.1); CREATININE 0.6 mg/dL (0.6-1.3); MAGNESIUM 1.4 mg/dL (1.8-2.4); POTASSIUM 4.4 mmol/L (3.5-5.1)
[2018-03-25] MEDS ORDERED: LEVAQUIN 750 M750 MG PO (09:40)
[2018-03-25] MEDS ORDERED: MUCINEX600 MG PO (09:43)
[2018-03-25 10:23] LABS: HEMATOCRIT 25.8 % (37.0-47.0); HEMOGLOBIN 8.2 gm/dL (12.0-15.0); MCH 26.3 pg (26.0-34.0); MCHC 31.6 g/dL (28.0-37.0); MCV 83.2 fL (80.0-100.0); MPV 6.6 fl. (7.2-11.1); RBC 3.11 mil/uL (4.20-5.00); RDW-CV 18.3 % (10.5-14.5); WBC 5.6 thou/uL (4.0-11.0)
[2018-03-25 15:39] VITALS: BP 152/54
[2018-03-25 17:18] VITALS: BP 152/54
== END 2018-03-25 17:54 | disposition home or self-care (01) | DRG 871 ==
LOC: M.ERS 08:41 → M.2W 11:40 → M.TBA-ER 11:40 → M.ICU 11:40 → M.TBA-ER 12:07 → M.ICU 15:16 → M.2W 03-23 11:28
PROVIDERS: Emergency Medicine; Internal Medicine; Specialist; ADMIT Family Medicine
PROC: 02HV33Z Insertion of Infusion Device into Superior Vena Cava, Percutaneous Approach (ICD-10-PCS; principal; 2018-03-22)
DX: A41.9 Sepsis, unspecified organism (principal); J96.01 Acute respiratory failure with hypoxia; J15.4 Pneumonia due to other streptococci; R65.20 Severe sepsis without septic shock; E83.52 Hypercalcemia; E86.0 Dehydration; K59.00 Constipation, unspecified; I25.10 Atherosclerotic heart disease of native coronary artery without angina pectoris; E11.9 Type 2 diabetes mellitus without complications; J45.909 Unspecified asthma, uncomplicated; M79.7 Fibromyalgia; F03.90 Unspecified dementia, unspecified severity, without behavioral disturbance, psychotic disturbance, mood disturbance, and anxiety; F32.9 Major depressive disorder, single episode, unspecified; F41.9 Anxiety disorder, unspecified; E03.9 Hypothyroidism, unspecified; I50.9 Heart failure, unspecified; G89.29 Other chronic pain; Z96.652 Presence of left artificial knee joint; Z79.2 Long term (current) use of antibiotics; Z79.899 Other long term (current) drug therapy; Z88.6 Allergy status to analgesic agent; Z88.1 Allergy status to other antibiotic agents; Z85.43 Personal history of malignant neoplasm of ovary; Z91.041 Radiographic dye allergy status; Z87.442 Personal history of urinary calculi; Z88.8 Allergy status to other drugs, medicaments and biological substances; Z91.018 Allergy to other foods; Z98.890 Other specified postprocedural states; Z90.710 Acquired absence of both cervix and uterus; Z80.0 Family history of malignant neoplasm of digestive organs; Z80.49 Family history of malignant neoplasm of other genital organs; Z83.3 Family history of diabetes mellitus; Z82.5 Family history of asthma and other chronic lower respiratory diseases; Z82.49 Family history of ischemic heart disease and other diseases of the circulatory system

== ENCOUNTER → 2018-05-28 | Outpatient (CLI) | payer MEDICARE, OTHER ==
[~2018-05-28] MED LIST changes: +AMARYL2 MG PO; +BIOTIN0.5 GM PO; +CARAFATE 1 GM TA1 G1 PO; +CEPHALEXIN250 MG PO; +CIPROFLOXACIN500 M1 PO; +CITRATE OF MAG296 ML PO; +CONSTULOSE10 GM/152 PO; +FLAGYL500 MG PO; +FOLBIC RF TABL1 EACH PO; +HYDROCODONE-AP1 EAC6 PO; +INDOCIN25 MG/5 ML PO; +INDOMETHACIN 5050 M1 PO; +KLOR-CON 1010 MEQ PO; +LACTULOSE10 GM/152 PO; +LEVAQUIN 750 M750 MG PO; +LIPITOR 20 MG T20 M1 PO; +MAGOX 400400 MG PO; +MUCINEX600 MG PO; +NABUMETONE 750750 M1 PO; +TUMS PO; +ULTRAM 50MG TAB50 MG PO; +ZOFRAN ODT4 MG SUBLING
== END ==
LOC: M.MRI 12:49
DX: M47.26 Other spondylosis with radiculopathy, lumbar region (principal); M51.16 Intervertebral disc disorders with radiculopathy, lumbar region; M48.062 Spinal stenosis, lumbar region with neurogenic claudication

== ENCOUNTER 2018-06-05 13:19 | Emergency (ER) | payer MEDICARE, OTHER ==
[~2018-06-05] VITALS: Ht 172.7 cm; Wt 62.6 kg
[~2018-06-05 13:19] MED LIST changes: -BIOTIN0.5 GM PO; -CEPHALEXIN250 MG PO; -CIPROFLOXACIN500 M1 PO; -CITRATE OF MAG296 ML PO; -FLAGYL500 MG PO; -FOLBIC RF TABL1 EACH PO; -HYDROCODONE-AP1 EAC6 PO; -INDOMETHACIN 5050 M1 PO; -KLOR-CON 1010 MEQ PO; -LACTULOSE10 GM/152 PO; -MAGOX 400400 MG PO; -NABUMETONE 750750 M1 PO; -TUMS PO; -ULTRAM 50MG TAB50 MG PO; -ZOFRAN ODT4 MG SUBLING
[2018-06-05] MEDS ORDERED: LASIX 40 MG TAB40 M2 PO (13:37)
[2018-06-05] MEDS ORDERED: CEPHALEXIN250 MG PO (13:37)
[2018-06-05] MEDS ORDERED: HYDROCODON-ACE1 EAC7 PO (13:38)
[2018-06-05] MEDS ORDERED: BIOTIN0.5 GM PO (13:38)
[2018-06-05] MEDS ORDERED: METFORMIN HCL500 MG PO (13:38)
[2018-06-05] MEDS ORDERED: KLOR-CON 1010 MEQ PO (13:38)
[2018-06-05] MEDS ORDERED: MAGOX 400400 MG PO (13:39)
[2018-06-05] MEDS ORDERED: TUMS PO (13:39)
[2018-06-05] MEDS ORDERED: GLUCOSAMINE HC500 MG PO (13:39)
[2018-06-05] MEDS ORDERED: FOLBIC RF TABL1 EACH PO (13:39)
[2018-06-05 13:47] LABS: URINE BILIRUBIN NEGATIVE (Negative); URINE BLOOD NEGATIVE (Negative); URINE CLARITY CLEAR; URINE COLOR YELLOW; URINE GLUCOSE-RANDOM NEGATIVE (Negative); URINE KETONES NEGATIVE (Negative); URINE LEUKOCYTES-REFLEX NEGATIVE (Negative); URINE NITRITE-REFLEX NEGATIVE (Negative); URINE PROTEIN TRACE (Negative); URINE SPECIFIC GRAVITY 1.025 (1.005-1.030); URINE UROBILINOGEN 0.2 E.U./dl (0.2-1.0)
[2018-06-05 14:02] LABS: HEMATOCRIT 27.8 % (37.0-47.0); HEMOGLOBIN 8.7 gm/dL (12.0-15.0); MCH 24.7 pg (26.0-34.0); MCHC 31.3 g/dL (28.0-37.0); MCV 78.8 fL (80.0-100.0); NUCLEATED RBCS 0 /100WBC; PLATELET COUNT* 522 thou/uL (150-400); RBC 3.53 mil/uL (4.20-5.00); RDW-CV 21.6 % (10.5-14.5); WBC 14.7 thou/uL (4.0-11.0)
[2018-06-05 14:06] LABS: CALCIUM 9.2 mg/dL (8.5-10.1); CREATININE 1.3 mg/dL (0.6-1.3); POTASSIUM 3.8 mmol/L (3.5-5.1)
[2018-06-05 14:11] LABS: ALBUMIN 2.6 g/dL (3.4-5.0); TOTAL BILIRUBIN 0.2 mg/dL (<0.1-1.0); TOTAL PROTEIN 6.3 g/dL (6.4-8.2)
[2018-06-05] MEDS ORDERED: ZOFRAN ODT4 MG SUBLING (14:33)
[2018-06-05] MEDS ORDERED: CIPROFLOXACIN500 M1 PO (14:33)
[2018-06-05] MEDS ORDERED: ULTRAM 50MG TAB50 MG PO (14:33)
[2018-06-05] MEDS ORDERED: FLAGYL500 MG PO (14:33)
[2018-06-05 14:38] VITALS: BP 147/61
[2018-06-05 14:58] LABS: ABSOLUTE EOSINOPHILS 0.1 thou/uL (0.0-0.7); ABSOLUTE LYMPHOCYTES 0.7 thou/uL (0.8-5.3); ABSOLUTE MONOCYTES 1.3 thou/uL (0.0-1.2); ABSOLUTE NEUTROPHILS 12.5 thou/uL (1.6-8.1)
[2018-06-05 15:02] LABS: ANISOCYTOSIS 2+; HYPOCHROMASIA Occasional; MICROCYTES Occasional; PLATELET ESTIMATE INCREASED; POIKILOCYTOSIS 1+
--- NOTE | 2018-06-05 15:57 | EKG ---
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 : 1945 Requested By: Maverick Mandujano Order Number: [id number] MD: Jeferson Jarrell Measurements Intervals [place] Rate: 95 P: 75 [place]: 174 QRS: -39 QRSD: 118 T: 98 QT: 343 QTc: 431 Interpretive Statements Sinus rhythm Nonspecific IVCD with LAD LVH with secondary repolarization abnormality Anterior infarct, old ST elevation suggests acute pericarditis Baseline wander in lead(s) I,III,aVL Compared to ECG 03/22/2018 09:32:58 Intraventricular conduction delay now present Left ventricular hypertrophy now present Early repolarization now present Myocardial infarct finding now present ST (T wave) deviation still present Electronically Signed On 06-05-2018 15:56:41 CDT by Jeferson Jarrell [email or web address] <ELECTRONICALLY SIGNED> By: Jeferson Jarrell MD, [facility] 06/05/18 1556 1341 1341 Jeferson Jarrell MD, [facility] /EPI
== END 2018-06-05 14:39 | disposition home or self-care (01) ==
LOC: M.ERS 13:19
PROVIDERS: Family Medicine
DX: R10.9 Unspecified abdominal pain (principal); R11.2 Nausea with vomiting, unspecified; E11.9 Type 2 diabetes mellitus without complications; M79.7 Fibromyalgia; J45.909 Unspecified asthma, uncomplicated; F32.9 Major depressive disorder, single episode, unspecified; F41.9 Anxiety disorder, unspecified; I25.10 Atherosclerotic heart disease of native coronary artery without angina pectoris; Z96.652 Presence of left artificial knee joint; Z90.49 Acquired absence of other specified parts of digestive tract; Z90.710 Acquired absence of both cervix and uterus; Z86.14 Personal history of Methicillin resistant Staphylococcus aureus infection; Z88.6 Allergy status to analgesic agent; Z88.8 Allergy status to other drugs, medicaments and biological substances; Z91.041 Radiographic dye allergy status; Z91.018 Allergy to other foods

== ENCOUNTER 2018-06-27 18:09 | Emergency (ER) | payer MEDICARE, OTHER ==
[~2018-06-27] VITALS: Ht 172.7 cm; Wt 60.3 kg
[~2018-06-27 18:09] MED LIST changes: +BIOTIN0.5 GM PO; +CEPHALEXIN250 MG PO; +CIPROFLOXACIN500 M1 PO; +FLAGYL500 MG PO; +FOLBIC RF TABL1 EACH PO; +KLOR-CON 1010 MEQ PO; +MAGOX 400400 MG PO; +TUMS PO; +ULTRAM 50MG TAB50 MG PO; +ZOFRAN ODT4 MG SUBLING
[2018-06-27] MEDS ORDERED: INDOMETHACIN 5050 M1 PO (18:29)
[2018-06-27] MEDS ORDERED: LACTULOSE10 GM/152 PO (18:31)
[2018-06-27] MEDS ORDERED: ARICEPT 5 MG TAB5 MG PO (18:32)
[2018-06-27] MEDS ORDERED: NABUMETONE 750750 M1 PO (19:07)
[2018-06-27] MEDS ORDERED: NORCO 5-325 TA1 EACH PO (19:07)
[2018-06-27 19:56] VITALS: BP 132/62
== END 2018-06-27 19:57 | disposition home or self-care (01) ==
LOC: M.ERS 18:09
DX: G89.29 Other chronic pain (principal); M25.562 Pain in left knee; E11.9 Type 2 diabetes mellitus without complications; M79.7 Fibromyalgia; J45.909 Unspecified asthma, uncomplicated; F32.9 Major depressive disorder, single episode, unspecified; F41.9 Anxiety disorder, unspecified; I25.10 Atherosclerotic heart disease of native coronary artery without angina pectoris; Z86.14 Personal history of Methicillin resistant Staphylococcus aureus infection; Z90.49 Acquired absence of other specified parts of digestive tract; Z90.710 Acquired absence of both cervix and uterus; Z91.041 Radiographic dye allergy status; Z88.1 Allergy status to other antibiotic agents; Z88.6 Allergy status to analgesic agent; Z88.8 Allergy status to other drugs, medicaments and biological substances; Z91.018 Allergy to other foods; Z96.652 Presence of left artificial knee joint; Z87.442 Personal history of urinary calculi

== ENCOUNTER 2018-07-13 10:40 | Inpatient (IN) | payer MEDICARE, OTHER ==
[~2018-07-13] VITALS: Ht 172.7 cm; Wt 50.1 kg
[~2018-07-13 10:40] MED LIST changes: +INDOMETHACIN 5050 M1 PO; +LACTULOSE10 GM/152 PO; +NABUMETONE 750750 M1 PO
[2018-07-13 10:42] VITALS: BP 178/67
[2018-07-13 11:25] LABS: URINE BILIRUBIN NEGATIVE (Negative); URINE BLOOD NEGATIVE (Negative); URINE CLARITY CLEAR; URINE COLOR YELLOW; URINE GLUCOSE-RANDOM NEGATIVE (Negative); URINE KETONES NEGATIVE (Negative); URINE LEUKOCYTES-REFLEX NEGATIVE (Negative); URINE NITRITE-REFLEX NEGATIVE (Negative); URINE PROTEIN NEGATIVE (Negative); URINE SPECIFIC GRAVITY >= 1.030 (1.005-1.030); URINE UROBILINOGEN 0.2 E.U./dl (0.2-1.0)
[2018-07-13 11:28] LABS: HEMOGLOBIN 10.2 gm/dL (12.0-15.0); MCHC 30.9 g/dL (28.0-37.0); MCV 80.9 fL (80.0-100.0); MPV 6.6 fl. (7.2-11.1); NUCLEATED RBCS 0 /100WBC; PLATELET COUNT* 630 thou/uL (150-400); RBC 4.08 mil/uL (4.20-5.00); WBC 6.2 thou/uL (4.0-11.0)
[2018-07-13 11:36] LABS: ANION GAP 5 mmol/L (7-16); BUN 15 mg/dL (7-18); CALCIUM 8.5 mg/dL (8.5-10.1); CHLORIDE 98 mmol/L (98-107); CO2 28 mmol/L (21-32); CREATININE 0.8 mg/dL (0.6-1.3); GLUCOSE 95 mg/dL (70-99); POTASSIUM 3.2 mmol/L (3.5-5.1); SODIUM 131 mmol/L (136-145)
[2018-07-13 11:37] LABS: APTT 35.9 Seconds (25.0-31.3); PROTIME 10.7 Seconds (9.20-11.50)
[2018-07-13 11:47] LABS: ALBUMIN 2.6 g/dL (3.4-5.0); ALKALINE PHOSPHATASE 157 U/L (46-116); NT-PRO BRAIN NAT PEPTIDE 1320 pg/mL (<300); SGOT 25 U/L (15-37); SGPT 15 U/L (30-65); TOTAL BILIRUBIN 0.3 mg/dL (<0.1-1.0); TOTAL PROTEIN 6.2 g/dL (6.4-8.2); TROPONIN-I LEVEL <0.06 ng/mL (<0.06)
[2018-07-13 12:04] LABS: ABSOLUTE EOSINOPHILS 0.1 thou/uL (0.0-0.7); ABSOLUTE LYMPHOCYTES 0.4 thou/uL (0.8-5.3); ABSOLUTE MONOCYTES 0.2 thou/uL (0.0-1.2); ABSOLUTE NEUTROPHILS 5.5 thou/uL (1.6-8.1); HYPOCHROMASIA 1+; PLATELET ESTIMATE INCREASED; POLYCHROMASIA 1+
[2018-07-13 12:05] LABS: TARGET CELLS Occasional; TEARDROPS Occasional
[2018-07-13 12:06] LABS: ANISOCYTOSIS 2+; MICROCYTES Occasional; POIKILOCYTOSIS 2+; SCHISTOCYTES Occasional
--- NOTE | 2018-07-13 16:18 | EKG ---
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: : 1945 Requested By: Maverick Mandujano Order Number: [id number] MD: Sabas Yanez Measurements Intervals [place] Rate: 88 P: 129 [place]: 211 QRS: -37 QRSD: 123 T: 117 QT: 364 QTc: 441 Interpretive Statements Sinus rhythm Left bundle branch block Compared to ECG 06/05/2018 13:41:19 Left bundle-branch block persists Electronically Signed On 07-13-2018 16:18:07 CDT by Sabas Yanez [email or web address] <ELECTRONICALLY SIGNED> By: Sabas Yanez MD, [facility] 07/13/18 1618 1100 1100 Sabas Yanez MD, [facility] /EPI
[2018-07-13 17:10] VITALS: BP 159/79
[2018-07-13 19:25] VITALS: BP 166/71
[2018-07-14] VITALS: BP 144/69
[2018-07-14 04:00] VITALS: BP 151/68
[2018-07-14 05:29] LABS: HEMATOCRIT 28.5 % (37.0-47.0); HEMOGLOBIN 9.1 gm/dL (12.0-15.0); MCV 81.1 fL (80.0-100.0); MPV 6.8 fl. (7.2-11.1); RBC 3.52 mil/uL (4.20-5.00); RDW-CV 24.9 % (10.5-14.5); WBC 5.5 thou/uL (4.0-11.0)
[2018-07-14 05:33] LABS: CALCIUM 8.2 mg/dL (8.5-10.1); CREATININE 0.8 mg/dL (0.6-1.3); MAGNESIUM 1.1 mg/dL (1.8-2.4); POTASSIUM 3.6 mmol/L (3.5-5.1)
[2018-07-14 07:30] VITALS: BP 125/57
[2018-07-14 15:44] VITALS: BP 128/39
[2018-07-14 19:25] VITALS: BP 124/52
[2018-07-15] VITALS: BP 144/46
[2018-07-15 05:28] LABS: HEMATOCRIT 27.5 % (37.0-47.0); HEMOGLOBIN 8.8 gm/dL (12.0-15.0); MCH 26.1 pg (26.0-34.0); MCHC 32.1 g/dL (28.0-37.0); MCV 81.1 fL (80.0-100.0); MPV 6.5 fl. (7.2-11.1); RBC 3.39 mil/uL (4.20-5.00); RDW-CV 25.4 % (10.5-14.5); WBC 8.2 thou/uL (4.0-11.0)
[2018-07-15 05:56] LABS: CALCIUM 8.5 mg/dL (8.5-10.1); CREATININE 0.7 mg/dL (0.6-1.3); MAGNESIUM 1.5 mg/dL (1.8-2.4); POTASSIUM 4.4 mmol/L (3.5-5.1)
[2018-07-15 08:36] VITALS: BP 124/49
[2018-07-15 10:43] VITALS: BP 124/49
[2018-07-15 12:00] VITALS: BP 119/33
--- NOTE | 2018-07-27 10:19 | CON ---
[address] [address] CONSULTATION Name: YIMI FULLER Room: [address] IN M.R.#: [id number] Admission: 07/13/18 Attend Phys: Elaine Savage MD Discharge: 07/15/18 Date of : 47 Report #: [id number] THIS REPORT FOR: //name// CC: Live Savage REASON FOR CONSULTATION: Evaluation and recommendations regarding post-acute rehabilitation in a female admitted to inpatient acute [facility] status post fall from standing height in her bedroom trying to navigate herself to the commode. HISTORY OF PRESENT ILLNESS: She landed on her back with pain. EMS did respond. When she was evaluated, she showed a noncompressive vertebral fracture. She was admitted for further care and workup. She did have intermittent hypoglycemia. Previous level of function was modified independent to independent with activities of daily living. Current level of function cannot be assessed, as there is limited data, but she did ambulate 5 feet with physical therapy. There is no data from occupational therapy or speech and language pathology. PAST MEDICAL HISTORY: Abdominal pain, acute encephalopathy, acute renal failure, altered mental status, back pain, bilateral knee pain, cervical strain, chest pain, chronic pain, dehydration, dependent edema, facial contusion, fractures of lumbar spine, frequent falls, hypoglycemia, hyponatremia, nonhealing wound, NSTEMI, polypharmacy, rash, renal failure, rhabdomyolysis, rib pain on the left side, sepsis, shoulder pain, acute strep pneumonia, urinary tract infection, weakness. ALLERGIES: BUTORPHANOL, PREGABALIN, ERGOLOID, FENTANYL, KETOROLAC, NALOXONE, CONTRAST, FORMOTEROL, MOMETASONE, MUSHROOMS, NALBUPHINE, PHENOBARBITAL, PROCHLORPERAZINE, SUMATRIPTAN, and TRIMETHOBENZAMIDE. MEDICATIONS: Reviewed and reconciled by myself and are available in the MAR. REVIEW OF SYSTEMS: A 14-point review of systems is done and is negative except as mentioned in HPI. PHYSICAL EXAMINATION: GENERAL: Alert, oriented, in no apparent distress. VITAL SIGNS: Reviewed and are stable. HEENT: Atraumatic, normocephalic. Pupils equal, round, reactive. ABDOMEN: Soft, nontender, nondistended. NEUROLOGIC: Cranial nerves 2-12 grossly intact. No focal neuro deficits, 5/5 strength in bilateral upper and lower extremities. SKIN: Warm and dry. No rashes or lesions noted. ASSESSMENT: [place] [address] CONSULTATION Name: YIIM FULLER Room: [address] IN [facility]#: [id number] Admission: 07/13/18 Attend Phys: Elaine Savage MD Discharge: 07/15/18 Date of : 47 Report #: [id number] 1. Multiple episodes of hypoglycemia. 2. Diabetes type 2. 3. Status post fall from standing height, sustaining back pain with a vertebral fracture, managed conservatively. 4. Fibromyalgia. 5. History of ovarian cancer. 6. History of asthma. 7. History of depression and anxiety. 8. Hypothyroid. PLAN: Recommend following along during acute stay. We will need more data from occupational therapy and perhaps speech language pathology and further notes on physical therapy, but we will follow to make sound recommendations on post-acute rehabilitation needs. Thank you for the consultation. <ELECTRONICALLY SIGNED> By: Manuela Devine DO 07/27/18 1019 1240 0153Kdina Devine DO /nt
== END 2018-07-15 18:54 | disposition home health service (06) | DRG 543 ==
LOC: M.ERS 10:40 → M.TBA-ER 13:22 → M.2W 13:22
PROVIDERS: Family Medicine; ADMIT Internal Medicine
DX: M80.08XA Age-related osteoporosis with current pathological fracture, vertebra(e), initial encounter for fracture (principal); I50.32 Chronic diastolic (congestive) heart failure; E44.0 Moderate protein-calorie malnutrition; M79.7 Fibromyalgia; J45.909 Unspecified asthma, uncomplicated; F32.9 Major depressive disorder, single episode, unspecified; F41.9 Anxiety disorder, unspecified; I25.10 Atherosclerotic heart disease of native coronary artery without angina pectoris; E03.9 Hypothyroidism, unspecified; Z96.652 Presence of left artificial knee joint; E11.649 Type 2 diabetes mellitus with hypoglycemia without coma; G89.29 Other chronic pain; W18.39XA Other fall on same level, initial encounter; R29.6 Repeated falls; Z53.29 Procedure and treatment not carried out because of patient's decision for other reasons; I25.2 Old myocardial infarction; Z87.440 Personal history of urinary (tract) infections; Z87.01 Personal history of pneumonia (recurrent); Z82.49 Family history of ischemic heart disease and other diseases of the circulatory system; Z83.3 Family history of diabetes mellitus; Z80.0 Family history of malignant neoplasm of digestive organs; Z90.49 Acquired absence of other specified parts of digestive tract; Z85.43 Personal history of malignant neoplasm of ovary; Z90.710 Acquired absence of both cervix and uterus; Z79.899 Other long term (current) drug therapy; Z88.8 Allergy status to other drugs, medicaments and biological substances; Z80.8 Family history of malignant neoplasm of other organs or systems; Z84.89 Family history of other specified conditions; Y93.89 Activity, other specified; Y92.89 Other specified places as the place of occurrence of the external cause; Y99.8 Other external cause status

== ENCOUNTER 2018-08-22 14:20 | Emergency (ER) | payer MEDICARE, OTHER ==
[~2018-08-22] VITALS: Ht 172.7 cm; Wt 59.0 kg
[2018-08-22 15:29] LABS: HEMATOCRIT 25.8 % (37.0-47.0); HEMOGLOBIN 8.1 gm/dL (12.0-15.0); MCH 26.7 pg (26.0-34.0); MCHC 31.6 g/dL (28.0-37.0); MCV 84.7 fL (80.0-100.0); MPV 6.2 fl. (7.2-11.1); NUCLEATED RBCS 0 /100WBC; PLATELET COUNT* 515 thou/uL (150-400); RBC 3.05 mil/uL (4.20-5.00); RDW-CV 22.7 % (10.5-14.5); WBC 8.5 thou/uL (4.0-11.0)
[2018-08-22 15:39] LABS: CALCIUM 8.9 mg/dL (8.5-10.1); CREATININE 1.2 mg/dL (0.6-1.3); POTASSIUM 4.5 mmol/L (3.5-5.1)
[2018-08-22 15:43] LABS: ALBUMIN 2.4 g/dL (3.4-5.0); TOTAL BILIRUBIN 0.1 mg/dL (<0.1-1.0); TOTAL PROTEIN 5.5 g/dL (6.4-8.2)
[2018-08-22] MEDS ORDERED: HYDROCODONE-AP1 EAC6 PO (15:56)
[2018-08-22 16:08] LABS: ABSOLUTE EOSINOPHILS 0.7 thou/uL (0.0-0.7); ABSOLUTE LYMPHOCYTES 0.5 thou/uL (0.8-5.3); ABSOLUTE MONOCYTES 0.4 thou/uL (0.0-1.2); ABSOLUTE NEUTROPHILS 6.9 thou/uL (1.6-8.1)
[2018-08-22 16:09] LABS: HYPOCHROMASIA 1+; OVALOCYTES 1+; PLATELET ESTIMATE INCREASED; TARGET CELLS Occasional
[2018-08-22 16:10] LABS: ANISOCYTOSIS 2+; MICROCYTES Occasional
[2018-08-22 16:13] LABS: URINE BILIRUBIN NEGATIVE (Negative); URINE BLOOD NEGATIVE (Negative); URINE CLARITY CLEAR; URINE COLOR YELLOW; URINE GLUCOSE-RANDOM NEGATIVE (Negative); URINE KETONES NEGATIVE (Negative); URINE LEUKOCYTES NEGATIVE (Negative); URINE NITRITE NEGATIVE (Negative); URINE PROTEIN NEGATIVE (Negative); URINE UROBILINOGEN 0.2 E.U./dl (0.2-1.0)
[2018-08-22] MEDS ORDERED: CITRATE OF MAG296 ML PO (16:43)
[2018-08-22 16:55] VITALS: BP 137/50
== END 2018-08-22 17:02 | disposition home or self-care (01) ==
LOC: M.ERS 14:20
PROVIDERS: Nurse Practitioner Family
DX: K59.00 Constipation, unspecified (principal); R16.1 Splenomegaly, not elsewhere classified; J84.10 Pulmonary fibrosis, unspecified; E87.1 Hypo-osmolality and hyponatremia; D64.9 Anemia, unspecified; E11.9 Type 2 diabetes mellitus without complications; M79.7 Fibromyalgia; J45.909 Unspecified asthma, uncomplicated; I25.10 Atherosclerotic heart disease of native coronary artery without angina pectoris; E03.9 Hypothyroidism, unspecified; Z96.652 Presence of left artificial knee joint; F32.9 Major depressive disorder, single episode, unspecified; F41.9 Anxiety disorder, unspecified; Z90.49 Acquired absence of other specified parts of digestive tract; Z90.710 Acquired absence of both cervix and uterus; Z85.43 Personal history of malignant neoplasm of ovary; Z91.041 Radiographic dye allergy status; Z88.8 Allergy status to other drugs, medicaments and biological substances

== ENCOUNTER → 2018-09-28 | Outpatient (CLI) | payer MEDICARE, OTHER ==
[~2018-09-28] MED LIST changes: +CITRATE OF MAG296 ML PO; +HYDROCODONE-AP1 EAC6 PO
[2018-09-28 13:32] LABS: POTASSIUM 4.6 mmol/L (3.5-5.1)
== END ==
LOC: M.LAB 01:05
PROVIDERS: Student in an Organized Health Care Education/Training Program
DX: Z01.812 Encounter for preprocedural laboratory examination (principal); E11.9 Type 2 diabetes mellitus without complications

== ENCOUNTER → 2018-10-14 | Outpatient (CLI) | payer MEDICARE, OTHER | LOC: M.MRI 10:55 | DX: S32.030A Wedge compression fracture of third lumbar vertebra, initial encounter for closed fracture (principal); M47.26 Other spondylosis with radiculopathy, lumbar region; M51.16 Intervertebral disc disorders with radiculopathy, lumbar region; W19.XXXA Unspecified fall, initial encounter; Y93.89 Activity, other specified; Y92.89 Other specified places as the place of occurrence of the external cause; Y99.8 Other external cause status ==

== ENCOUNTER 2018-10-28 22:22 | Inpatient (IN) | payer MEDICARE, OTHER ==
[~2018-10-28] VITALS: Ht 170.2 cm; Wt 59.9 kg
[2018-10-28 22:25] VITALS: BP 150/65
[2018-10-28 23:06] LABS: ABSOLUTE BASOPHILS 0.1 thou/uL (0.0-0.2); ABSOLUTE EOSINOPHILS 0.3 thou/uL (0.0-0.7); ABSOLUTE LYMPHOCYTES 0.9 thou/uL (0.8-5.3); ABSOLUTE MONOCYTES 0.9 thou/uL (0.0-1.2); ABSOLUTE NEUTROPHILS 5.5 thou/uL (1.6-8.1); EOSINOPHILS 3.4 %; HEMATOCRIT 29.6 % (37.0-47.0); HEMOGLOBIN 9.5 gm/dL (12.0-15.0); LYMPHOCYTES 11.9 %; MCH 28.4 pg (26.0-34.0); MCHC 32.1 g/dL (28.0-37.0); MCV 88.4 fL (80.0-100.0); MONOCYTES 11.9 %; MPV 6.5 fl. (7.2-11.1); NUCLEATED RBCS 0 /100WBC; PLATELET COUNT* 484 thou/uL (150-400); POLYS 71.8 %; RBC 3.35 mil/uL (4.20-5.00); RDW-CV 23.6 % (10.5-14.5); WBC 7.7 thou/uL (4.0-11.0)
[2018-10-28 23:11] LABS: ANION GAP 7 mmol/L (7-16); BUN 16 mg/dL (7-18); CALCIUM 8.7 mg/dL (8.5-10.1); CHLORIDE 97 mmol/L (98-107); CO2 26 mmol/L (21-32); CREATININE 0.9 mg/dL (0.6-1.3); GLUCOSE 69 mg/dL (70-99); POTASSIUM 4.1 mmol/L (3.5-5.1); SODIUM 130 mmol/L (136-145)
[2018-10-28 23:13] LABS: INR 0.9; PROTIME 9.5 Seconds (9.20-11.50)
[2018-10-28 23:19] LABS: ANISOCYTOSIS 2+; HYPOCHROMASIA 1+; OVALOCYTES 1+; PLATELET ESTIMATE INCREASED; POIKILOCYTOSIS 1+
[2018-10-28 23:20] LABS: MACROCYTES 1+; POLYCHROMASIA 1+; TARGET CELLS Occasional
[2018-10-28 23:21] LABS: ALBUMIN 2.3 g/dL (3.4-5.0); ALKALINE PHOSPHATASE 143 U/L (46-116); LIPASE 170 U/L (73-393); NT-PRO BRAIN NAT PEPTIDE 2401 pg/mL (<300); SGOT 33 U/L (15-37); SGPT 17 U/L (30-65); TOTAL BILIRUBIN 0.1 mg/dL (<0.1-1.0); TOTAL PROTEIN 5.7 g/dL (6.4-8.2); TROPONIN-I LEVEL <0.06 ng/mL (<0.06)
[2018-10-29 00:58] LABS: URINE BILIRUBIN NEGATIVE (Negative); URINE BLOOD NEGATIVE (Negative); URINE CLARITY CLEAR; URINE COLOR YELLOW; URINE GLUCOSE-RANDOM 1+ (Negative); URINE KETONES NEGATIVE (Negative); URINE LEUKOCYTES-REFLEX NEGATIVE (Negative); URINE NITRITE-REFLEX NEGATIVE (Negative); URINE PROTEIN NEGATIVE (Negative); URINE SPECIFIC GRAVITY 1.015 (1.005-1.030); URINE UROBILINOGEN 0.2 E.U./dl (0.2-1.0)
--- NOTE | 2018-10-29 02:06 | NUR ---
PATIENT REFUSED EKG
[2018-10-29 02:45] VITALS: BP 166/71
[2018-10-29] MEDS ORDERED: HYDROCODON-ACE1 EAC7 PO (03:23)
[2018-10-29] MEDS ORDERED: MIRALAX17 GM PO (03:25)
[2018-10-29] MEDS ORDERED: MORPHINE SULFAT15 M3 PO (03:28)
--- NOTE | 2018-10-29 06:14 | NUR ---
PATIENT ARRIVED ON FLOOR FROM ER ABOUT 0230. PATIENT ADMISSION HISTORY AND ASSESSMENT WAS COMPLETED CHARTED. PATIENT BLOOD SUGAR HAS REMAINED IN THE LOW 100'S. PATIENT STRAIGHT CATHS AT HOME AND HAS STRAIGHT CATHED TWICE SINCE SHE HAS BEEN UP HERE. PATIENT HAS CHRONIC PAIN ISSUES DUE TO FIBROMYALGIA ONE TIME DOSES OF MORPHINE IV AND HYDROCODONE WERE GIVEN. PATIENT WAS STILL COMPLAINING OF PAIN. DR QUINTERO WAS CALLED ORDERS RECEIVED FOR HOME PAIN MEDICATIONS. WILL CONTINUE TO MONITOR.
[2018-10-29 07:50] VITALS: BP 149/79
[2018-10-29 12:26] VITALS: BP 149/66
--- NOTE | 2018-10-29 14:02 | NUR ---
SW met with pt to complete initial assessment, introduce self, and SW role. Pt alert, oriented. Pt lives at home with her . Pt has hx of [facility] and [facility]. Pt has 2 RWs and a wc. Pt says she would like resources for in home services especially house cleaning. SW provided referral/resource lists. Pt does not anticipate any dc needs at this time. SW to continue to follow to assist with safe dc planning.
[2018-10-29 15:04] VITALS: BP 149/66
--- NOTE | 2018-10-29 15:47 | NUR ---
PATIENT HAS BEEN ALERT AND ORIENTED TODAY VERY PLEASANT. VITAL SIGNS STABLE ON ROOM AIR. SOME COMPLAINTS OF PAIN THAT IS SOMEWHAT CONTROLLED WITH ORAL PAIN MEDICATIONS. PATIENT HAS BEEN STRAIGHT CATHING SELF. PATIENT IS BEING DISCHARGED TO HOME WITH .
[2018-10-29 15:52] VITALS: BP 149/66
[2018-10-29 15:56] VITALS: BP 149/66
--- NOTE | 2018-10-29 17:06 | 2DMMODE ---
[place] [address] 2 D/M-MODE ECHOCARDIOGRAM Name: YIMI FULLER Room: [address] IN [facility]#: [id number] Admission: 10/29/18 Attend Phys: Elaine Savage, Discharge: 10/29/18 Date of : 47 Date of Service: 10/29/18 1705 Report #: [id number] THIS REPORT FOR: //name// APPROVED REPORT Study performed: 10/29/2018 14:46:08 EXAM: Comprehensive 2D, Doppler, and color-flow Echocardiogram Patient Location: In-Patient Room #: [facility] Status: routine BSA: 1.70 HR: 108 bpm BP: 149/66 mmHg Rhythm: NSR Other Information Study Quality: Good Indications Syncope 2D Dimensions IVSd: 8.90 (7-11mm) LVOT Diam: 19.90 (18-24mm) LVDd: 42.44 mm PWd: 9.20 (7-11mm) Ascending Ao: 25.95 (22-36mm) LVDs: 31.65 (25-40mm) Aortic Root: 28.31 mm Volumes Left Atrial Volume (Systole) LA ESV Index: 38.90 mL/m2 Aortic Valve AoV Peak Dm.: 1.43 m/s AO Peak Gr.: 8.23 mmHg LVOT Max P.97 mmHg AO Mean Gr.: 4.98 mmHg LVOT Mean P.33 mmHg LVOT Max V: 1.11 m/s AO V2 VTI: 25.42 cm LVOT Mean V: 0.69 m/s JESSICA (VTI): 2.31 cm2 LVOT V1 VTI: 18.91 cm TDI Medial E' Dm.: 0.10 m/s Lateral E' Dm.: 0.12 m/[place] [address] 2 D/M-MODE ECHOCARDIOGRAM Name: YIMI FULLER Room: [address] IN .R.#: [id number] Admission: 10/29/18 Attend Phys: Elaine Savage, Discharge: 10/29/18 Date of : 47 Date of Service: 10/29/18 1705 Report #: [id number] Pulmonary Valve PV Peak Dm.: 1.36 m/s PV Peak Gr.: 7.36 mmHg Tricuspid Valve RAP Estimate: 5.00 mmHg TR Peak Gr.: 40.93 mmHg RVSP: 46.00 mmHg PA Pressure: 46.00 mmHg Left Ventricle The left ventricle is normal size. There is normal LV segmental wall motion. There is normal left ventricular wall thickness. Left ventricular systolic function is normal. The left ventricular ejection fraction is within the normal range. LVEF is 55%. The left ventricular diastolic function is normal. Right Ventricle The right ventricle is normal size. The right ventricular systolic function is normal. Atria Left atrium is mildly dilated. The right atrium size is normal. Aortic Valve Mild aortic valve sclerosis. No aortic regurgitation is present. There is no aortic valvular stenosis. Mitral Valve There is mitral annular calcification. Mild to moderate mitral regurgitation. No evidence of mitral valve stenosis. Tricuspid Valve The tricuspid valve is normal in structure. Mild tricuspid regurgitation. Moderate pulmonary hypertension. Pulmonic Valve The pulmonary valve is normal in structure. There is no pulmonic valvular regurgitation. Great Vessels The aortic root is normal in size. IVC is normal in size and collapses >50% with inspiration. Pericardium There is no [place] [address] 2 D/M-MODE ECHOCARDIOGRAM Name: YIMI FULLER Room: [address]#: [id number] Admission: 10/29/18 Attend Phys: Elaine Savage, Discharge: 10/29/18 Date of : 47 Date of Service: 10/29/18 1705 Report #: [id number] <Conclusion> The left ventricle is normal size. There is normal left ventricular wall thickness. Left ventricular systolic function is normal. The left ventricular ejection fraction is within the normal range. LVEF is 55%. The left ventricular diastolic function is normal. The right ventricle is normal size. Left atrium is mildly dilated. Mild aortic valve sclerosis. No aortic regurgitation is present. There is no aortic valvular stenosis. There is mitral annular calcification. Mild to moderate mitral regurgitation. No evidence of mitral valve stenosis. The tricuspid valve is normal in structure. Mild tricuspid regurgitation. Moderate pulmonary hypertension. IVC is normal in size and collapses >50% with inspiration. There is no pericardial effusion. There is normal LV segmental wall motion. <ELECTRONICALLY SIGNED> By: Sabas Yanez MD, [facility] 10/29/18 1705 170 04 Sabas Yanez MD, [facility] /INF
--- NOTE | 2018-10-30 09:52 | NUR ---
PT. DISCHARGED HOME PRIOR TO O.T. EVAL. PLEASE ORDER FURTHER O.T. SERVICES IF NEEDED.
== END 2018-10-29 16:04 | disposition home or self-care (01) | DRG 637 ==
LOC: M.ERS 22:22 → M.TBA-ER 10-29 01:38 → M.3W 10-29 01:38
PROVIDERS: Emergency Medicine; ADMIT Internal Medicine
DX: E11.649 Type 2 diabetes mellitus with hypoglycemia without coma (principal); E43 Unspecified severe protein-calorie malnutrition; F32.9 Major depressive disorder, single episode, unspecified; F41.9 Anxiety disorder, unspecified; E03.9 Hypothyroidism, unspecified; Z96.652 Presence of left artificial knee joint; Z87.442 Personal history of urinary calculi; I25.10 Atherosclerotic heart disease of native coronary artery without angina pectoris; Z85.43 Personal history of malignant neoplasm of ovary; Z90.49 Acquired absence of other specified parts of digestive tract; Z90.710 Acquired absence of both cervix and uterus; Z85.42 Personal history of malignant neoplasm of other parts of uterus; Z87.81 Personal history of (healed) traumatic fracture; Z88.2 Allergy status to sulfonamides; Z88.8 Allergy status to other drugs, medicaments and biological substances; Z91.041 Radiographic dye allergy status; Z91.02 Food additives allergy status; Z83.3 Family history of diabetes mellitus; Z82.49 Family history of ischemic heart disease and other diseases of the circulatory system; Z83.6 Family history of other diseases of the respiratory system; Z86.14 Personal history of Methicillin resistant Staphylococcus aureus infection; Z79.899 Other long term (current) drug therapy; Z68.20 Body mass index [BMI] 20.0-20.9, adult

== ENCOUNTER 2018-10-30 20:18 | Inpatient (IN) | payer MEDICARE, OTHER ==
[~2018-10-30] VITALS: Ht 170.2 cm; Wt 60.9 kg
--- NOTE | ~2018-10-30 | CON ---
[address] [address] CONSULTATION Name: YIMI FULLER Room: [address] IN M.R.#: [id number] Admission: 10/30/18 Attend Phys: Keith Davis MD Discharge: 10/31/18 Date of : 47 Report #: [id number] THIS REPORT FOR: //name// CC: Keith Richardson DATE OF SERVICE: 10/31/2018 REQUESTING PHYSICIAN: Dr. Davis REASON FOR CONSULTATION: Hyponatremia. HISTORY OF PRESENT ILLNESS: The patient is a 73-year-old female who was admitted to the hospital yesterday with chief complaint of hypoglycemia. She apparently was found by her she was unresponsive, her blood sugar was very low, and she was brought to the Emergency Room. They gave her D10, blood sugar went up to 136, but when they checked her serum sodium, it was 106. The patient was started on 3% saline and received only 20 mL of 3% saline and sodium was rechecked and it was 122. Several hours later, it was 123, so I strongly suspect lab error. In the past, she never had low sodium. Her serum sodium was around 130 and that is probably her baseline. MEDICAL HISTORY: 1. Diabetes mellitus type 2. 2. Fibromyalgia. 3. History of ovarian cancer. 4. Depression, anxiety, and chronic pain. MEDICATIONS PRIOR TO ADMISSION: Reviewed. FAMILY HISTORY: Noncontributory. SOCIAL HISTORY: She lives with her . No tobacco, no alcohol abuse. REVIEW OF SYSTEMS: As I mentioned earlier. PHYSICAL EXAMINATION: GENERAL: Awake, alert, and oriented, in no acute distress. VITAL SIGNS: Blood pressure reviewed. HEENT: Pupils are round. NECK: Supple. LUNGS: Clear. CARDIOVASCULAR: Regular rate. ABDOMEN: Soft. LOWER EXTREMITIES: [place] [address] CONSULTATION Name: YIMI FULLERINE Room: [address]#: [id number] Admission: 10/30/18 Attend Phys: Keith Davis MD Discharge: 10/31/18 Date of : 47 Report #: [id number] ASSESSMENT: Hyponatremia. I strongly suspect lab error. Her serum sodium is back to acceptable level and I will sign off. PLAN: Signing off. I will be on standby. If hyponatremia returns, we will be happy to come back in the case. Discussed with ICU nurse. By: [id number] [id number] Hanley MD /nt
[~2018-10-30 20:18] MED LIST changes: +MIRALAX17 GM PO; +MORPHINE SULFAT15 M3 PO
[2018-10-30 20:20] VITALS: BP 133/66
[2018-10-30 20:45] LABS: HEMATOCRIT 28.1 % (37.0-47.0); HEMOGLOBIN 8.9 gm/dL (12.0-15.0); MCH 27.8 pg (26.0-34.0); MCHC 31.9 g/dL (28.0-37.0); MCV 87.4 fL (80.0-100.0); MPV 6.4 fl. (7.2-11.1); NUCLEATED RBCS 0 /100WBC; PLATELET COUNT* 444 thou/uL (150-400); RBC 3.22 mil/uL (4.20-5.00); RDW-CV 23.8 % (10.5-14.5); WBC 8.8 thou/uL (4.0-11.0)
[2018-10-30 20:59] LABS: ALKALINE PHOSPHATASE 144 U/L (46-116); BUN 18 mg/dL (7-18); CALCIUM 8.7 mg/dL (8.5-10.1); CHLORIDE 91 mmol/L (98-107); CO2 26 mmol/L (21-32); CREATININE 0.6 mg/dL (0.6-1.3); GLUCOSE 95 mg/dL (70-99); POTASSIUM 3.2 mmol/L (3.5-5.1); SGOT 22 U/L (15-37); SGPT 14 U/L (30-65); TOTAL BILIRUBIN 0.1 mg/dL (<0.1-1.0); TOTAL PROTEIN 5.2 g/dL (6.4-8.2); TROPONIN-I LEVEL <0.06 ng/mL (<0.06)
[2018-10-30 21:00] LABS: ANION GAP < 0 mmol/L (7-16); SODIUM 106 mmol/L (136-145)
--- NOTE | 2018-10-30 21:04 | NUR ---
Pt asleep, but wakes with stimulation. Spouse states "she isn't like this. This isn't normal". Glucose checked and WNL. Patient still answering questions appropriately. Pt eating chocolate pudding and drinking milk without difficulty. Dr Anand to bedside to discuss results and plan of care with pt and spouse. Will continue to monitor.
[2018-10-30 21:28] LABS: ABSOLUTE EOSINOPHILS 0.3 thou/uL (0.0-0.7); ABSOLUTE LYMPHOCYTES 0.2 thou/uL (0.8-5.3); ABSOLUTE MONOCYTES 0.6 thou/uL (0.0-1.2); ABSOLUTE NEUTROPHILS 7.7 thou/uL (1.6-8.1); ATYPICAL LYMPHS 1 %
[2018-10-30 21:31] LABS: ANISOCYTOSIS 2+; PLATELET ESTIMATE INCREASED
[2018-10-30 22:30] VITALS: BP 117/63
[2018-10-30 22:45] VITALS: BP 152/69
[2018-10-30 23:00] VITALS: BP 141/54
[2018-10-31] VITALS (10 sets, daily range): BP systolic 121–163; BP diastolic 51–76
[2018-10-31 01:39] LABS: URINE BILIRUBIN NEGATIVE (Negative); URINE BLOOD NEGATIVE (Negative); URINE CLARITY CLEAR; URINE COLOR YELLOW; URINE GLUCOSE-RANDOM NEGATIVE (Negative); URINE KETONES NEGATIVE (Negative); URINE LEUKOCYTES-REFLEX NEGATIVE (Negative); URINE NITRITE-REFLEX NEGATIVE (Negative); URINE PROTEIN NEGATIVE (Negative); URINE SPECIFIC GRAVITY 1.015 (1.005-1.030); URINE UROBILINOGEN 0.2 E.U./dl (0.2-1.0)
--- NOTE | 2018-10-31 04:02 | NUR ---
PT ALERT AND ORIENTED THIS MORNING ASKING FOR PAIN MEDS. 3% N.S AT 20 ML/ HR PER NEPHROLOGY, LABS REDRAW THIS AM. SERRANO CATHETER INSERTED FOR ACCURATE I AND O. BLOOD SUGARS IN NORMAL RANGE. PT ATE SNACKS AND DRANK MILK THIS MORNING, VERBALISING SHE IS HUNGRY, TOLERATED DIET WELL.
[2018-10-31 04:29] LABS: CALCIUM 8.7 mg/dL (8.5-10.1); CREATININE 0.6 mg/dL (0.6-1.3)
[2018-10-31 04:31] LABS: POTASSIUM 4.5 mmol/L (3.5-5.1)
--- NOTE | 2018-10-31 17:31 | NUR ---
PT LEFT AMA AROUND 1714 TODAY. AMA PAPER SIGNED AND PT AWARE OF RISKS INVOLVED. PTS AT BEDSIDE. PT TAKEN TO CAR VIA WHEELCHAIR AND BELONGINGS IN HAND. IV TAKEN OUT AND SERRANO D/C'D EARLIER TODAY. PT VOIDED WITHOUT PROBLEMS. PHYSICAN AWARE OF PT LEAVING AMA.
--- NOTE | 2018-11-01 12:28 | EKG ---
[place] [address] ELECTROCARDIOGRAM REPORT Name: YIMI FULLER Room: [address] IN M.R.#: [id number] Admission: 10/30/18 Attend Phys: Keith Davis MD Discharge: 10/31/18 Date of : 47 Report #: [id number] THIS REPORT FOR: //name// [facility] ED Test Date: 2018-10-30 Test Time: 20:48:20 Pat Name: YIMI FULLER Department: Room: [facility] Gender: F Natural Resource Manager: [place] : 1945 Requested By: Roldan Anand Order Number: [id number] MD: Pollo Vargas Measurements Intervals [place] Rate: 96 P: 86 FL: 190 QRS: -36 QRSD: 118 T: 190 QT: 377 QTc: 477 Interpretive Statements Sinus rhythm Nonspecific IVCD with LAD LVH with secondary repolarization abnormality Probable anterior infarct, age indeterminate Compared to ECG 07/13/2018 11:00:08 Intraventricular conduction delay now present Left ventricular hypertrophy now present Early repolarization now present Myocardial infarct finding now present Left bundle-branch block no longer present Electronically Signed On 11-01-2018 12:27:54 SUPPLY REQUIREMENTS OFFICER by Pollo Vargas [email or web address] <ELECTRONICALLY SIGNED> By: Pollo Vargas MD, FACC 11/01/18 1227 47 47 Pollo Vargas MD, [facility] /EPI
== END 2018-10-31 17:15 | disposition left against medical advice (07) | DRG 637 ==
LOC: M.ERS 20:18 → M.TBA-ER 21:10 → M.ICU 22:35
PROVIDERS: Emergency Medicine Emergency Medical Services; Internal Medicine Nephrology; ADMIT Internal Medicine
DX: E11.649 Type 2 diabetes mellitus with hypoglycemia without coma (principal); G93.41 Metabolic encephalopathy; E87.1 Hypo-osmolality and hyponatremia; E44.1 Mild protein-calorie malnutrition; J45.909 Unspecified asthma, uncomplicated; F41.9 Anxiety disorder, unspecified; I25.10 Atherosclerotic heart disease of native coronary artery without angina pectoris; Z96.652 Presence of left artificial knee joint; G89.29 Other chronic pain; D64.9 Anemia, unspecified; M79.7 Fibromyalgia; F32.9 Major depressive disorder, single episode, unspecified; Z53.21 Procedure and treatment not carried out due to patient leaving prior to being seen by health care provider; Z87.442 Personal history of urinary calculi; Z85.43 Personal history of malignant neoplasm of ovary; Z85.42 Personal history of malignant neoplasm of other parts of uterus; Z90.49 Acquired absence of other specified parts of digestive tract; Z90.710 Acquired absence of both cervix and uterus; Z87.81 Personal history of (healed) traumatic fracture; Z88.8 Allergy status to other drugs, medicaments and biological substances; Z91.041 Radiographic dye allergy status; Z83.3 Family history of diabetes mellitus; Z82.49 Family history of ischemic heart disease and other diseases of the circulatory system; Z83.6 Family history of other diseases of the respiratory system; Z80.8 Family history of malignant neoplasm of other organs or systems; Z68.21 Body mass index [BMI] 21.0-21.9, adult; Z79.899 Other long term (current) drug therapy

== ENCOUNTER 2018-11-13 13:00 | Inpatient (IN) | payer MEDICARE, OTHER ==
[~2018-11-13] VITALS: Ht 172.7 cm; Wt 54.4 kg
[2018-11-13 13:30] VITALS: BP 166/64
[2018-11-13 13:59] LABS: URINE BLOOD NEGATIVE (Negative); URINE CLARITY CLEAR; URINE COLOR YELLOW; URINE GLUCOSE-RANDOM NEGATIVE (Negative); URINE KETONES 2+ (Negative); URINE LEUKOCYTES-REFLEX NEGATIVE (Negative); URINE NITRITE-REFLEX NEGATIVE (Negative); URINE PROTEIN NEGATIVE (Negative); URINE SPECIFIC GRAVITY >= 1.030 (1.005-1.030); URINE UROBILINOGEN 0.2 E.U./dl (0.2-1.0)
[2018-11-13 14:05] LABS: ICTOTEST (BILI CONFIRMATORY) Negative (Negative); URINE BILIRUBIN 2+ (Negative)
[2018-11-13 14:25] LABS: HEMOGLOBIN 11.1 gm/dL (12.0-15.0); RBC 4.04 mil/uL (4.20-5.00); WBC 6.4 thou/uL (4.0-11.0)
[2018-11-13 14:26] LABS: ABSOLUTE LYMPHOCYTES 1.4 thou/uL (0.8-5.3); ABSOLUTE MONOCYTES 0.3 thou/uL (0.0-1.2); ABSOLUTE NEUTROPHILS 4.5 thou/uL (1.6-8.1); EOSINOPHILS 0.4 %; LYMPHOCYTES 22.5 %; MCH 27.5 pg (26.0-34.0); MCHC 31.8 g/dL (28.0-37.0); MCV 86.6 fL (80.0-100.0); MONOCYTES 4.5 %; MPV 6.1 fl. (7.2-11.1); PLATELET COUNT* 859 thou/uL (150-400); PLATELET ESTIMATE INCREASED; POLYS 70.2 %; RDW-CV 22.8 % (10.5-14.5)
[2018-11-13 14:27] LABS: ABSOLUTE BASOPHILS 0.2 thou/uL (0.0-0.2); BASOPHILS 2.4 %
[2018-11-13 14:46] LABS: ANION GAP 14 mmol/L (7-16); BUN 19 mg/dL (7-18); CALCIUM 9.4 mg/dL (8.5-10.1); CHLORIDE 90 mmol/L (98-107); CO2 23 mmol/L (21-32); CREATININE 1.1 mg/dL (0.6-1.3); GLUCOSE 98 mg/dL (70-99); POTASSIUM 3.3 mmol/L (3.5-5.1); SODIUM 127 mmol/L (136-145)
[2018-11-13 14:52] LABS: ANISOCYTOSIS 2+; OVALOCYTES 1+; POIKILOCYTOSIS 1+
[2018-11-13 14:58] LABS: ALBUMIN 2.7 g/dL (3.4-5.0); ALKALINE PHOSPHATASE 159 U/L (46-116); SGOT 27 U/L (15-37); SGPT 18 U/L (30-65); TOTAL BILIRUBIN 0.3 mg/dL (<0.1-1.0); TOTAL PROTEIN 6.3 g/dL (6.4-8.2); TROPONIN-I LEVEL <0.06 ng/mL (<0.06)
[2018-11-13 17:50] VITALS: BP 138/54
[2018-11-13 17:59] VITALS: BP 144/53
--- NOTE | 2018-11-13 18:41 | NUR ---
RECEIVED REPORT FROM KALANI IN ED AND ASSUMED CARE OF PT @ 5460.PT IS A/OX4,VSS,TRACING ST ON THE MONITOR.IV PATENT WITH IVF INFUSING PER ORDERS.PT IS CALM AND COOPERATIVE WITH C/O PAIN IN THE RIGHT FLANK.PT IS UP WITH ONE ASSIST AND WALKER TO BSC.PT INFORMED OF PLAN OF CARE AND COMMUNICATES UNDERSTANDING.HOURLY ROUNDING COMPELTED FOR PT SAFETY.PT LEFT RESTING IN BED WITH CALL LIGHT AND FALL PRECAUTIONS IN PLACE.WILL CONTINUE TO MONITOR FOR DURATION OF SHIFT.
[2018-11-13 20:00] VITALS: BP 148/68
[2018-11-14] VITALS: BP 119/72
[2018-11-14 04:00] VITALS: BP 132/49
[2018-11-14 05:16] LABS: NUCLEATED RBCS 0 /100WBC; WBC 6.9 thou/uL (4.0-11.0)
[2018-11-14 05:18] LABS: HEMATOCRIT 28.3 % (37.0-47.0); HEMOGLOBIN 9.2 gm/dL (12.0-15.0); MCH 28.1 pg (26.0-34.0); MCHC 32.4 g/dL (28.0-37.0); MCV 86.8 fL (80.0-100.0); MPV 6.2 fl. (7.2-11.1); RBC 3.26 mil/uL (4.20-5.00); RDW-CV 22.9 % (10.5-14.5)
[2018-11-14 05:20] LABS: CALCIUM 8.4 mg/dL (8.5-10.1); CREATININE 0.8 mg/dL (0.6-1.3); POTASSIUM 4.2 mmol/L (3.5-5.1)
[2018-11-14 05:26] LABS: PLATELET COUNT* 684 thou/uL (150-400)
--- NOTE | 2018-11-14 05:56 | NUR ---
ASSUMED PT CARE AT 1930. NURSING ASSESSMENT COMPLETED AT START OF SHIFT. GAUGE CONTROLLER IN PLACE, TRACING SINUS RHYTHM/SINUS TACHYCARDIA WITH HR 90-LOW 100'S. SERRANO CATHETER IN PLACE, HOURLY ROUNDING COMPETED, HIGH FALL PRECAUTIONS IN PLACE, CALL LIGHT WITHIN REACH.
[2018-11-14 06:24] LABS: ABSOLUTE BASOPHILS 0.3 thou/uL (0.0-0.2); ABSOLUTE EOSINOPHILS 0.1 thou/uL (0.0-0.7); ABSOLUTE LYMPHOCYTES 0.6 thou/uL (0.8-5.3); ABSOLUTE MONOCYTES 0.5 thou/uL (0.0-1.2); ABSOLUTE NEUTROPHILS 5.5 thou/uL (1.6-8.1); OVALOCYTES 1+; TARGET CELLS 1+
[2018-11-14 06:25] LABS: BURR CELLS 1+; HYPOCHROMASIA 2+; MICROCYTES 1+; PLATELET ESTIMATE INCREASED
[2018-11-14 06:26] LABS: SCHISTOCYTES 1+; TOXIC GRANULATION 1+
[2018-11-14 06:27] LABS: ANISOCYTOSIS 3+; POIKILOCYTOSIS 2+
[2018-11-14 07:55] VITALS: BP 136/50
--- NOTE | 2018-11-14 07:55 | NUR ---
RECEIVED REPORT FROM VILLA AND ASSUMED CARE OF PT @ 5610.PT IS A/O X4,VSS,TRACING SR-ST ON THE MONITOR.IV PATENT WITH IVF INFUSING PER ORDERS.SERRANO SECURE AND PATENT.PT IS CALM AND COOPERATIVE WITH C/O PAIN IN FLANK-MEDICATIONS GIVEN.PT IS UP WITH ASSIST OF ONE TO BSC.PT LEFT RESTING IN BED WITH CALL LIGHT AND FALL PRECAUTIONS IN PLACE.WILL CONTINUE TO MONITOR.
--- NOTE | 2018-11-14 09:03 | NUR ---
INITIAL ASSESSMENT: Pt evaluated for d/c planning needs. Reviewed chart. Pt was hospitalized at [facility] in October 2018. Pt lives at home with spouse and was independent with ADL's prior to admission. Pt has walker, cane and w/c at home. Pt has had [facility] in the recent past and [facility] prior. Pt plans on returning home on d/c from hospital. Will remain available to assist as needed.
--- NOTE | 2018-11-14 12:41 | EKG ---
[place] [address] ELECTROCARDIOGRAM REPORT Name: YIMI FULLER Room: [address] ADM IN .R.#: [id number] Admission: 11/13/18 Attend Phys: Faustina Lomax Discharge: Date of : 47 Report #: [id number] THIS REPORT FOR: //name// 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 Cover Operator: Christen LERMA : 1945 Requested By: Jennifer Case Order Number: [id number] MD: Indra Jones Measurements Intervals [place] Rate: 115 P: 86 HI: 181 QRS: -35 QRSD: 118 T: 136 QT: 301 QTc: 417 Interpretive Statements Sinus tachycardia LVH with secondary repolarization abnormality Probable anterior infarct, age indeterminate Compared to ECG 10/30/2018 20:48:20 Sinus rhythm no longer present Intraventricular conduction delay no longer present Myocardial infarct finding still present Electronically Signed On 11-14-2018 12:41:38 DICTATING MACHINE MECHANIC by Indra Jones [email or web address] <ELECTRONICALLY SIGNED> By: Indra Jones MD, FACC 11/14/18 1241 1354 1354 Indra Jones MD, FAC /EPI
[2018-11-14 12:57] VITALS: BP 138/52
--- NOTE | 2018-11-14 18:56 | NUR ---
VSS.CARDIAC MONITORING IN PLACE WITH NO CHANGES.IV PATENT WITH IVF INFUSING PER ORDERS.PT HAS C/O PAIN IN FLANK-MANAGED WELL WITH PO AND IV MEDICATIONS.SERRANO SECURE AND PATENT.PT INFORMED OF PLAN OF CARE AND COMMUNICATES UNDERSTANDING.HOURLY ROUNDING COMPLETED FOR PT SAFETY.CALL LIGHT AND FALL PRECAUTIONS IN PLACE.WILL CONTINUE TO MONITOR FOR DURATION OF SHIFT.
[2018-11-14 19:50] VITALS: BP 131/51
[2018-11-15] VITALS: BP 113/40
[2018-11-15 05:24] LABS: HEMOGLOBIN 8.9 gm/dL (12.0-15.0); MCH 28.1 pg (26.0-34.0); RBC 3.18 mil/uL (4.20-5.00); RDW-CV 22.8 % (10.5-14.5)
[2018-11-15 05:27] LABS: HEMATOCRIT 27.7 % (37.0-47.0); MCHC 32.2 g/dL (28.0-37.0); MCV 87.2 fL (80.0-100.0); NUCLEATED RBCS 0 /100WBC; PLATELET COUNT* 667 thou/uL (150-400); WBC 7.1 thou/uL (4.0-11.0)
[2018-11-15 05:31] LABS: CALCIUM 8.2 mg/dL (8.5-10.1); CREATININE 0.6 mg/dL (0.6-1.3); POTASSIUM 4.5 mmol/L (3.5-5.1)
--- NOTE | 2018-11-15 05:33 | NUR ---
ASSUMED PT CARE AT 1930, NURSING ASSESSMENT COMPLETED AT START OF SHIFT. PT C/O PAIN AT START OF SHIFT. PT DENIED EVER TAKING TORADOL WHEN ASKED ABOUR ALLERGIC REACTION. IV TORADOL ADMINSTERED, NO S/S OF ALLERGIC REACTION OBSERVED THIS SHIFT. CERTIFIED PROFESSIONAL ERGONOMIST IN PLACE, TRACING SINUS RHYTHM. PT UP WITH 1 ASSIST AND WALKER, AMBULATED AROUND ROOM AND UP TO BEDSIDE RECLINER THIS SHIFT. HOURLY ROUNDING COMPLETED, HIGH FALL PRECAUTIONS IN PLACE. CALL LIGHT WITHIN REACH.
[2018-11-15 05:45] VITALS: BP 130/47
[2018-11-15 07:18] LABS: ABSOLUTE EOSINOPHILS 0.4 thou/uL (0.0-0.7); ABSOLUTE LYMPHOCYTES 0.8 thou/uL (0.8-5.3); ABSOLUTE MONOCYTES 0.6 thou/uL (0.0-1.2); ABSOLUTE NEUTROPHILS 5.3 thou/uL (1.6-8.1); PLATELET ESTIMATE INCREASED
[2018-11-15 07:19] LABS: HYPOCHROMASIA 3+; MICROCYTES 2+
[2018-11-15 07:20] LABS: ANISOCYTOSIS 2+; BURR CELLS 1+; OVALOCYTES 1+; SCHISTOCYTES 1+
[2018-11-15 08:10] VITALS: BP 139/58
[2018-11-15 12:00] VITALS: BP 145/50
[2018-11-15] MEDS ORDERED: COLACE100 MG PO (14:07)
[2018-11-15 14:08] VITALS: BP 145/50
--- NOTE | 2018-11-15 15:57 | NUR ---
PT OK FOR DISCHARGE.PAPERWORK COMPLETED AND GIVEN TO PT.NO SCRIPTS GIVEN.IV REMOVED.SERRANO REMOVED-PT STATES SHE SELF CATHS AT HOME DUE TO RETENTION.HEART MONITOR REMOVED AND RETUNRED TO NURSING STATION.ALL PERSONAL BELONGINGS PACKED AND TAKEN WITH PT.PT WHEELED OUT BY NURSING STAFF TO PERSONAL VEHICLE.NURSES AID RETURNED TO UNIT AND STATED PT SLIPPED GETTING INTO VEHICLE AND WENT DOWN TO HER KNEE. NURSES AID TRIED TO BRING PT BACK INTO HOSPITAL BUT PT REFUSED AND LEFT THE PREMISES.CHARGE NURSE AND SATELLITE DISH INSTALLER NOTIFIED.
== END 2018-11-15 15:15 | disposition home or self-care (01) | DRG 682 ==
LOC: M.ERS 13:00 → M.TBA-ER 16:08 → M.ERS 16:08 → M.TBA-ER 16:27 → M.2W 17:53
PROVIDERS: Nurse Practitioner Family; ADMIT Internal Medicine
DX: N17.0 Acute kidney failure with tubular necrosis (principal); E43 Unspecified severe protein-calorie malnutrition; E87.1 Hypo-osmolality and hyponatremia; Z68.1 Body mass index [BMI] 19.9 or less, adult; E11.9 Type 2 diabetes mellitus without complications; M79.7 Fibromyalgia; I10 Essential (primary) hypertension; F41.9 Anxiety disorder, unspecified; E87.6 Hypokalemia; E83.51 Hypocalcemia; E83.42 Hypomagnesemia; D47.3 Essential (hemorrhagic) thrombocythemia; F32.9 Major depressive disorder, single episode, unspecified; J45.909 Unspecified asthma, uncomplicated; E86.0 Dehydration; D64.9 Anemia, unspecified; K59.00 Constipation, unspecified; E03.9 Hypothyroidism, unspecified; I25.10 Atherosclerotic heart disease of native coronary artery without angina pectoris; Z96.652 Presence of left artificial knee joint; Z85.43 Personal history of malignant neoplasm of ovary; Z90.710 Acquired absence of both cervix and uterus; Z90.49 Acquired absence of other specified parts of digestive tract; Z88.6 Allergy status to analgesic agent; Z88.8 Allergy status to other drugs, medicaments and biological substances; Z83.3 Family history of diabetes mellitus; Z82.49 Family history of ischemic heart disease and other diseases of the circulatory system; Z80.49 Family history of malignant neoplasm of other genital organs

== ENCOUNTER 2018-11-26 13:04 | Inpatient (IN) | payer MEDICARE, OTHER ==
[~2018-11-26] VITALS: Ht 172.7 cm; Wt 55.3 kg
--- NOTE | ~2018-11-26 | CON ---
[address] [address] CONSULTATION Name: YIMI FULLER Room: [address] IN M.R.#: [id number] Admission: 11/26/18 Attend Phys: Faustina Lomax Discharge: 11/28/18 Date of : 47 Report #: [id number] THIS REPORT FOR: //name// CC: Live Reza HISTORY OF PRESENT ILLNESS: This is a pleasant 73-year-old female with past medical history significant for hypertension, diabetes, GERD, ovarian cancer, uterine cancer, David bypass with revision, who is presenting for evaluation of nausea, vomiting and diarrhea. The patient reports constant abdominal pain located in the right and mid abdomen that started about 2 days prior to presentation. The patient reports pain is worse on eating and relieved by remaining n.p.o. or pain medication. Pain is localized and nonradiating. The patient reports associated 20-pound weight loss over the last couple of months. The patient also reports having about 4-5 loose bowel movements per day. PAST MEDICAL HISTORY: As mentioned above, the patient has a past medical history of diabetes, gastroesophageal reflux disease, ovarian cancer, uterine cancer. PAST SURGICAL HISTORY: David shunt of the stomach and revision, hysterectomy in 1983, arthroscopic surgery, right shoulder surgery, left knee replacement. SOCIAL HISTORY: The patient denies smoking or recreational drug use, but used alcohol weekly. FAMILY HISTORY: Significant for hypertension, diabetes. REVIEW OF SYSTEMS: A comprehensive 10-point review of systems is negative except for what is mentioned in the HPI. PHYSICAL EXAMINATION: VITAL SIGNS: Temperature 36.3, pulse rate 119, respirations 18, blood pressure 147/59. GENERAL: The patient is alert, awake, oriented x 3. HEENT: Pupils are equal, round, reactive to light and accommodation. Mucous membranes are moist. NECK: There is no congestion. LUNGS: Clear to auscultation bilaterally. CARDIOVASCULAR: Rate and rhythm regular, S1, S2 present. ABDOMEN: Soft. There is mild tenderness in the mid and right upper quadrant. There is no guarding or rigidity. EXTREMITIES: Warm, well perfused. LABORATORY DATA: Hemoglobin 12.9, hematocrit 39.8, platelet count 678, WBC count 6.4. Sodium 132, potassium 3.6, chloride 95, bicarbonate 28, BUN 9, creatinine 0[place] [address] CONSULTATION Name: ARIANANANDAYIMI Room: [address]#: [id number] Admission: 11/26/18 Attend Phys: Faustina Lomax Discharge: 11/28/18 Date of : 47 Report #: [id number] ASSESSMENT AND PLAN: This is a pleasant 73-year-old female with past medical history as mentioned above who is presenting for evaluation of abdominal pain, nausea, vomiting and diarrhea. We will proceed with upper gastrointestinal endoscopy and lower gastrointestinal endoscopy to evaluate source of her abdominal pain. The patient also appears to have a rounded density in the tail of the pancreas, which will need further evaluation by endoscopic ultrasound, an outpatient EUS can be scheduled for this. By: [id number] Blunt MD /nt
[~2018-11-26 13:04] MED LIST changes: +COLACE100 MG PO
[2018-11-26 13:08] VITALS: BP 127/67
[2018-11-26] MEDS ORDERED: LIPITOR 20 MG T20 M1 PO (13:25)
[2018-11-26] MEDS ORDERED: KEFLEX250 MG PO (13:27)
[2018-11-26] MEDS ORDERED: AMARYL2 MG PO (13:32)
[2018-11-26] MEDS ORDERED: PROTONIX40 M1 PO (13:33)
[2018-11-26] MEDS ORDERED: IRON325 PO (13:34)
[2018-11-26] MEDS ORDERED: CYMBALTA60 MG PO (13:34)
[2018-11-26] MEDS ORDERED: BIOTIN1 M1 PO (13:35)
[2018-11-26] MEDS ORDERED: CARAFATE 1 GM TA1 G1 PO (13:48)
[2018-11-26] MEDS ORDERED: KLOR-CON 1010 MEQ PO (13:52)
[2018-11-26] MEDS ORDERED: NABUMETONE 750750 M1 PO (13:53)
[2018-11-26 14:00] LABS: MCH 27.8 pg (26.0-34.0); MPV 6.3 fl. (7.2-11.1); NUCLEATED RBCS 0 /100WBC; RDW-CV 23.5 % (10.5-14.5); WBC 6.4 thou/uL (4.0-11.0)
[2018-11-26 14:01] LABS: HEMATOCRIT 39.8 % (37.0-47.0); HEMOGLOBIN 12.9 gm/dL (12.0-15.0); MCHC 32.4 g/dL (28.0-37.0); PLATELET COUNT* 678 thou/uL (150-400); RBC 4.63 mil/uL (4.20-5.00)
[2018-11-26 14:25] LABS: ANION GAP 7 mmol/L (7-16); BUN 9 mg/dL (7-18); CALCIUM 8.6 mg/dL (8.5-10.1); CHLORIDE 88 mmol/L (98-107); CO2 27 mmol/L (21-32); CREATININE 0.7 mg/dL (0.6-1.3); GLUCOSE 120 mg/dL (70-99); SODIUM 122 mmol/L (136-145)
[2018-11-26 14:28] LABS: POTASSIUM 2.7 mmol/L (3.5-5.1)
[2018-11-26 14:30] LABS: ALBUMIN 2.7 g/dL (3.4-5.0); ALKALINE PHOSPHATASE 152 U/L (46-116); LIPASE 67 U/L (73-393); SGOT 40 U/L (15-37); SGPT 18 U/L (30-65); TOTAL BILIRUBIN 0.4 mg/dL (<0.1-1.0); TOTAL PROTEIN 5.9 g/dL (6.4-8.2); TROPONIN-I LEVEL <0.06 ng/mL (<0.06)
[2018-11-26 14:59] LABS: ABSOLUTE LYMPHOCYTES 0.8 thou/uL (0.8-5.3); ABSOLUTE MONOCYTES 0.3 thou/uL (0.0-1.2); ABSOLUTE NEUTROPHILS 5.3 thou/uL (1.6-8.1); ANISOCYTOSIS 1+; PLATELET ESTIMATE ADEQUATE; TARGET CELLS 1+
[2018-11-26 16:12] LABS: URINE BILIRUBIN NEGATIVE (Negative); URINE BLOOD NEGATIVE (Negative); URINE CLARITY CLEAR; URINE COLOR YELLOW; URINE GLUCOSE-RANDOM NEGATIVE (Negative); URINE KETONES 2+ (Negative); URINE LEUKOCYTES-REFLEX NEGATIVE (Negative); URINE PROTEIN NEGATIVE (Negative); URINE SPECIFIC GRAVITY 1.025 (1.005-1.030); URINE UROBILINOGEN 0.2 E.U./dl (0.2-1.0)
[2018-11-26 16:13] LABS: URINE NITRITE-REFLEX POSITIVE (Negative)
[2018-11-26 16:33] LABS: BACTERIA-REFLEX >30 Many /HPF (None Seen); CRYSTALS None Seen /LPF (None Seen); HYALINE CASTS 0-3 Few /LPF (None Seen); MUCUS None Seen strn/LPF (None Seen); SQUAMOUS >10 Many /LPF (0-3); URINE RBC None Seen /HPF (0-2); URINE WBC-REFLEX 0-5 Rare /HPF (0-5)
[2018-11-26 17:30] VITALS: BP 154/76
[2018-11-26 17:45] VITALS: BP 132/61
[2018-11-26 18:15] VITALS: BP 156/54
[2018-11-26 19:40] VITALS: BP 125/68
[2018-11-26 21:46] LABS: CALCIUM 8.3 mg/dL (8.5-10.1); CREATININE 0.7 mg/dL (0.6-1.3); MAGNESIUM 1.2 mg/dL (1.8-2.4)
[2018-11-26 21:48] LABS: POTASSIUM 2.9 mmol/L (3.5-5.1)
[2018-11-27] VITALS: BP 141/73
[2018-11-27 04:00] VITALS: BP 102/82
[2018-11-27 05:16] LABS: MAGNESIUM 2.3 mg/dL (1.8-2.4); POTASSIUM 3.6 mmol/L (3.5-5.1)
[2018-11-27 08:00] VITALS: BP 144/49
--- NOTE | 2018-11-27 09:19 | EKG ---
[place] [address] ELECTROCARDIOGRAM REPORT Name: YIMI FULLER Room: [place] [address] ADM IN M.R.#: [id number] Admission: 11/26/18 Attend Phys: Faustina Lomax Discharge: Date of : 47 Report #: [id number] THIS REPORT FOR: //name// [facility] ED Test Date: 2018-11-26 Test Time: 14:57:40 Pat Name: YIMI FULLER Department: Room: [facility] Gender: F Heating Unit Mechanic: Christen LERMA : 1945 Requested By: Mae Leon Order Number: [id number] MD: Indra Jones Measurements Intervals [place] Rate: 111 P: 99 GA: 166 QRS: -36 QRSD: 120 T: 129 QT: 335 QTc: 455 Interpretive Statements Sinus tachycardia Nonspecific IVCD with LAD LVH with secondary repolarization abnormality Anteroseptal infarct Compared to ECG 11/13/2018 13:54:05 Intraventricular conduction delay now present Myocardial infarct finding still present Electronically Signed On 11-27-2018 9:19:25 OXYGEN EQUIPMENT PREPARER by Indra Jones [email or web address] <ELECTRONICALLY SIGNED> By: Indra Jones MD, FAC 11/27/18 0919 1457 1457 Indra Jones MD, FAC /EPI
[2018-11-27 11:54] VITALS: BP 145/46
[2018-11-27 15:51] VITALS: BP 160/74
[2018-11-27 19:50] VITALS: BP 147/59
[2018-11-28] VITALS: BP 150/57
[2018-11-28 07:52] VITALS: BP 140/77
[2018-11-28] MEDS ORDERED: CIPRO500 MG PO (10:53)
[2018-11-28] MEDS ORDERED: FLAGYL500 M1 PO (10:54)
[2018-11-28 10:56] VITALS: BP 140/77
== END 2018-11-28 11:29 | disposition home or self-care (01) | DRG 391 ==
LOC: M.ERS 13:04 → M.TBA-ER 15:09 → M.2W 15:09
PROVIDERS: Physician Assistant; ADMIT Internal Medicine
DX: A09 Infectious gastroenteritis and colitis, unspecified (principal); E43 Unspecified severe protein-calorie malnutrition; E87.1 Hypo-osmolality and hyponatremia; Z68.1 Body mass index [BMI] 19.9 or less, adult; E11.9 Type 2 diabetes mellitus without complications; K21.9 Gastro-esophageal reflux disease without esophagitis; F32.9 Major depressive disorder, single episode, unspecified; F41.9 Anxiety disorder, unspecified; J45.909 Unspecified asthma, uncomplicated; I25.10 Atherosclerotic heart disease of native coronary artery without angina pectoris; E03.9 Hypothyroidism, unspecified; Z96.652 Presence of left artificial knee joint; E87.6 Hypokalemia; K86.89 Other specified diseases of pancreas; M79.7 Fibromyalgia; Z90.89 Acquired absence of other organs; Z87.442 Personal history of urinary calculi; Z85.43 Personal history of malignant neoplasm of ovary; Z88.6 Allergy status to analgesic agent; Z88.1 Allergy status to other antibiotic agents; Z91.041 Radiographic dye allergy status; Z88.8 Allergy status to other drugs, medicaments and biological substances; Z91.018 Allergy to other foods; Z79.899 Other long term (current) drug therapy; Z79.84 Long term (current) use of oral hypoglycemic drugs; Z90.710 Acquired absence of both cervix and uterus; Z85.42 Personal history of malignant neoplasm of other parts of uterus; Z86.14 Personal history of Methicillin resistant Staphylococcus aureus infection; Z82.49 Family history of ischemic heart disease and other diseases of the circulatory system; Z83.3 Family history of diabetes mellitus; Z80.9 Family history of malignant neoplasm, unspecified; Z84.89 Family history of other specified conditions

== ENCOUNTER 2018-12-01 15:15 | Inpatient (IN) | payer MEDICARE, OTHER ==
[~2018-12-01] VITALS: Ht 165.1 cm; Wt 70.8 kg
--- NOTE | ~2018-12-01 | PROC ---
[address] [address] PROCEDURE REPORT Name: YIMI FULLER Room: [address] IN M.R.#: [id number] Admission: 12/01/18 Attend Phys: Elaine Savage MD Discharge: Date of : 47 Report #: [id number] THIS REPORT FOR: //name// For GI report, please see the Provation report in Perceptive 7 content. By: [id number] Records Staff EVERARDO /JESUS MANUEL
--- NOTE | ~2018-12-01 | PROC ---
[address] [address] PROCEDURE REPORT Name: YIMI FULLER Room: [address] IN M.R.#: [id number] Admission: 12/01/18 Attend Phys: Elaine Savage MD Discharge: Date of : 47 Report #: [id number] THIS REPORT FOR: //name// For GI report, please see the Provation report in Perceptive 7 content. By: [id number] Records Staff KERLINE /JESUS MANUEL
[~2018-12-01 15:15] MED LIST changes: +BIOTIN1 M1 PO; +CIPRO500 MG PO; +CYMBALTA60 MG PO; +FLAGYL500 M1 PO; +IRON325 PO; +PROTONIX40 M1 PO
[2018-12-01 15:53] LABS: HEMATOCRIT 37.1 % (37.0-47.0); HEMOGLOBIN 11.8 gm/dL (12.0-15.0); MCH 28.3 pg (26.0-34.0); MCHC 31.9 g/dL (28.0-37.0); MCV 88.8 fL (80.0-100.0); MPV 6.6 fl. (7.2-11.1); RBC 4.18 mil/uL (4.20-5.00); RDW-CV 23.6 % (10.5-14.5); WBC 5.6 thou/uL (4.0-11.0)
[2018-12-01 16:05] LABS: APTT 26.2 Seconds (25.0-31.3); INR 1.1; PROTIME 10.9 Seconds (9.20-11.50)
[2018-12-01 16:10] LABS: CALCIUM 8.7 mg/dL (8.5-10.1); POTASSIUM 3.2 mmol/L (3.5-5.1)
[2018-12-01 16:14] LABS: ALBUMIN 2.6 g/dL (3.4-5.0); TOTAL BILIRUBIN 0.5 mg/dL (<0.1-1.0); TOTAL PROTEIN 5.8 g/dL (6.4-8.2)
[2018-12-01 18:00] LABS: BE -3.6 mmol/L (-2 to +3)
[2018-12-01 18:04] LABS: PCO2 74.5 mmHg (35.0-45.0); PO2 412.5 mmHg (75.0-100.0); pH 7.163 (7.340-7.450)
[2018-12-01 19:30] VITALS: BP 99/56
[2018-12-01 19:39] LABS: POTASSIUM 3.1 mmol/L (3.5-5.1)
[2018-12-01 20:00] VITALS: BP 98/57
[2018-12-01 21:00] VITALS: BP 102/53
[2018-12-01 21:27] LABS: URINE BILIRUBIN NEGATIVE (Negative); URINE BLOOD NEGATIVE (Negative); URINE CLARITY CLEAR; URINE COLOR YELLOW; URINE GLUCOSE-RANDOM NEGATIVE (Negative); URINE KETONES TRACE (Negative); URINE LEUKOCYTES NEGATIVE (Negative); URINE NITRITE POSITIVE (Negative); URINE PROTEIN NEGATIVE (Negative); URINE SPECIFIC GRAVITY >= 1.030 (1.005-1.030); URINE UROBILINOGEN 0.2 E.U./dl (0.2-1.0)
[2018-12-01 21:32] LABS: BACTERIA 1-9 Few /HPF (None Seen); CASTS None Seen /LPF (None Seen); CRYSTALS None Seen /LPF (None Seen); SQUAMOUS 0-3 Few /LPF (0-3); URINE RBC 0-2 Rare /HPF (0-2); URINE WBC 0-5 Rare /HPF (0-5)
[2018-12-01 21:58] LABS: BE 0.7 mmol/L (-2 to +3)
[2018-12-01 22:00] VITALS: BP 115/48
[2018-12-01 22:03] LABS: pH 7.204 (7.340-7.450)
[2018-12-01 22:04] LABS: PCO2 78.3 mmHg (35.0-45.0); PO2 139.5 mmHg (75.0-100.0)
[2018-12-01 23:00] VITALS: BP 106/51
[2018-12-01 23:45] VITALS: BP 70/32
[2018-12-02] VITALS (37 sets, daily range): BP systolic 70–172; BP diastolic 40–75
[2018-12-02 01:31] LABS: BE -0.3 mmol/L (-2 to +3); PCO2 31.3 mmHg (35.0-45.0); pH 7.478 (7.340-7.450)
[2018-12-02 01:35] LABS: PO2 210.7 mmHg (75.0-100.0)
[2018-12-02 02:28] LABS: HEMATOCRIT 29.1 % (37.0-47.0); MCHC 33.2 g/dL (28.0-37.0); MCV 87.3 fL (80.0-100.0); MPV 6.5 fl. (7.2-11.1); RBC 3.34 mil/uL (4.20-5.00); RDW-CV 22.8 % (10.5-14.5); WBC 7.7 thou/uL (4.0-11.0)
[2018-12-02 02:32] LABS: HEMOGLOBIN 9.7 gm/dL (12.0-15.0)
[2018-12-02 02:54] LABS: CALCIUM 7.8 mg/dL (8.5-10.1); CREATININE 0.7 mg/dL (0.6-1.3); POTASSIUM 3.3 mmol/L (3.5-5.1); TOTAL BILIRUBIN 0.3 mg/dL (<0.1-1.0); TOTAL PROTEIN 4.5 g/dL (6.4-8.2)
[2018-12-02 06:48] LABS: BE -3.3 mmol/L (-2 to +3); PCO2 23.1 mmHg (35.0-45.0)
[2018-12-02 06:52] LABS: PO2 130.2 mmHg (75.0-100.0)
[2018-12-02 12:33] LABS: MAGNESIUM 2.9 mg/dL (1.8-2.4); POTASSIUM 4.5 mmol/L (3.5-5.1)
[2018-12-02 12:46] LABS: BE -4.8 mmol/L (-2 to +3); PCO2 31.5 mmHg (35.0-45.0); pH 7.404 (7.340-7.450)
[2018-12-02 12:49] LABS: PO2 129.7 mmHg (75.0-100.0)
--- NOTE | 2018-12-02 16:03 | EKG ---
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 Car Ferry Driver: : 1945 Requested By: Mae Couch Order Number: [id number] MD: Sabas Yanez Measurements Intervals [place] Rate: 127 P: 44 MD: 140 QRS: -34 QRSD: 121 T: 149 QT: 336 QTc: 489 Interpretive Statements Sinus tachycardia Left bundle branch block Compared to ECG 11/26/2018 14:57:40 Intraventricular conduction delay persists Left ventricular hypertrophy no longer present Electronically Signed On 12-02-2018 16:03:30 BUCKLE SEWER MACHINE by Sabas Yanez [email or web address] <ELECTRONICALLY SIGNED> By: Sabas Yanez MD, [facility] 12/02/18 1603 1641 1641 Sabas Yanez MD, [facility] /EPI
[2018-12-03] VITALS (26 sets, daily range): BP systolic 121–172; BP diastolic 56–87
[2018-12-03 04:30] LABS: HEMATOCRIT 23.7 % (37.0-47.0); HEMOGLOBIN 7.8 gm/dL (12.0-15.0); MCH 28.5 pg (26.0-34.0); MCHC 32.9 g/dL (28.0-37.0); MCV 86.5 fL (80.0-100.0); MPV 6.8 fl. (7.2-11.1); RBC 2.74 mil/uL (4.20-5.00); RDW-CV 23.9 % (10.5-14.5); WBC 5.8 thou/uL (4.0-11.0)
[2018-12-03 04:45] LABS: ALBUMIN 1.8 g/dL (3.4-5.0); CALCIUM 7.6 mg/dL (8.5-10.1); CREATININE 1.1 mg/dL (0.6-1.3); MAGNESIUM 1.9 mg/dL (1.8-2.4); POTASSIUM 3.9 mmol/L (3.5-5.1); TOTAL BILIRUBIN 0.2 mg/dL (<0.1-1.0); TOTAL PROTEIN 4.5 g/dL (6.4-8.2)
[2018-12-03 05:32] LABS: BE 0.5 mmol/L (-2 to +3); PCO2 31.7 mmHg (35.0-45.0)
[2018-12-03 05:42] LABS: PO2 147.2 mmHg (75.0-100.0)
[2018-12-03 12:27] LABS: PCO2 32.1 mmHg (35.0-45.0); pH 7.464 (7.340-7.450)
[2018-12-03 12:33] LABS: PO2 143.6 mmHg (75.0-100.0)
[2018-12-04] VITALS (44 sets, daily range): BP systolic 122–179; BP diastolic 57–97
[2018-12-04 03:56] LABS: HEMATOCRIT 21.1 % (37.0-47.0); MCH 28.1 pg (26.0-34.0); MCV 85.3 fL (80.0-100.0); MPV 6.9 fl. (7.2-11.1); RBC 2.47 mil/uL (4.20-5.00); RDW-CV 24.3 % (10.5-14.5); WBC 6.4 thou/uL (4.0-11.0)
[2018-12-04 04:10] LABS: ALBUMIN 1.9 g/dL (3.4-5.0); CALCIUM 7.5 mg/dL (8.5-10.1); CREATININE 0.7 mg/dL (0.6-1.3); MAGNESIUM 1.4 mg/dL (1.8-2.4); TOTAL BILIRUBIN 0.2 mg/dL (<0.1-1.0); TOTAL PROTEIN 4.6 g/dL (6.4-8.2)
[2018-12-04 04:12] LABS: HEMOGLOBIN 6.9 gm/dL (12.0-15.0)
[2018-12-04 05:31] LABS: POTASSIUM 2.5 mmol/L (3.5-5.1)
[2018-12-04 06:33] LABS: CALCIUM 7.9 mg/dL (8.5-10.1); CREATININE 0.6 mg/dL (0.6-1.3)
[2018-12-04 06:36] LABS: POTASSIUM 2.8 mmol/L (3.5-5.1)
--- NOTE | 2018-12-04 07:16 | CON ---
[address] [address] CONSULTATION Name: YIMI FULLER Room: [address] IN M.R.#: [id number] Admission: 12/01/18 Attend Phys: Elaine Savage MD Discharge: Date of : 47 Report #: [id number] THIS REPORT FOR: //name// CC: Live Savage DATE OF SERVICE: 12/03/2018 INFECTIOUS DISEASE CONSULTATION: ATTENDING PHYSICIAN: Dr. Savage. REASON FOR EVALUATION: Nosocomial fevers in the setting of seizures and possible stroke with left-sided paralysis. HISTORY OF PRESENT ILLNESS: Chart reviewed. The patient examined. This is a 73-year-old woman who has had extensive medical history over the last several months, who is admitted through the Emergency Room with seizures, encephalopathy. She also was found to have left-sided paralysis. Associated with that had several weeks of progressive anorexia, weakness. Of note, she was recently hospitalized earlier this month, felt to have colitis. She was treated with combination therapy with metronidazole, ciprofloxacin, it is difficult to ascertain at this point. Her eyes are open, although she has got very little response, seems to have some ongoing abdominal pain. She was noted to have some fevers to 102 overnight, had been admitted without fevers. She is empiric based on therapy with ceftriaxone and Flagyl. It is noted that previous urine culture with Escherichia coli was resistant to ceftriaxone at that point on 11/26/2018. Blood cultures sterile thus far from the . ALLERGIES: LISTED TO CONTRAST DYE, PHENOBARBITAL, PROCHLORPERAZINE, TRIMETHOBENZAMIDE, DULERA, FENTANYL, SUMATRIPTAN, ERGOLOID, NALBUPHINE, BUTORPHANOL, NALOXONE, KETOROLAC, FORMOTEROL, PREGABALIN. MEDICATIONS: Levetiracetam, ceftriaxone, methylprednisolone, nabumetone, ferrous sulfate, duloxetine, calcium, donepezil, metoprolol, levalbuterol, pantoprazole, levothyroxine, tramadol, alprazolam. PAST MEDICAL HISTORY: Diabetes mellitus, history of reflux, fibromyalgia, history of ovarian cancer in , asthma, depression, anxiety, has known vasculopathy, coronary artery disease, hypothyroidism, multiple orthopedic surgeries, appendectomy, tonsillectomy, hysterectomy, uterine cancer in . SOCIAL HISTORY: Nonsmoker, no ethanol. FAMILY HISTORY: [place] [address] CONSULTATION Name: YIMI FULLER Room: [address]#: [id number] Admission: 12/01/18 Attend Phys: Elaine Savage MD Discharge: Date of : 47 Report #: [id number] REVIEW OF SYSTEMS: Not obtainable. PHYSICAL EXAMINATION: GENERAL: She appears chronically ill. She does have left-sided drooping. She is supine. She is on a mechanical ventilatory support. She appears critically ill. She has her eyes open, although there is no clear evidence of comprehension. VITAL SIGNS: Temperature max over the course of the last 24 hours was 102, more recently 98.8, pulse 108, respirations 25, blood pressure is 138/71. SKIN: Warm. HEENT: Extraocular muscles, unclear if they are intact. NECK: Supple, although there is some resistant to movement. I do not think there is any true meningismus. LUNGS: Few scattered coarse breath sounds. HEART: Regular. I do not appreciate a murmur. ABDOMEN: Soft. There are no peritoneal signs. It is difficult to ascertain how much tenderness there is. EXTREMITIES: Left side, both upper and lower there is no movement. She does move her right lower extremity spontaneously. LABORATORY DATA: White count 5.8. H and H 7.8 and 23.7, platelets of 386. ABGs: pH 7.490, pCO2 of 31.7, pO2 of 147.2 and FiO2 of 35%. Chest x-ray, no acute process. Blood cultures sterile thus far. Free T4 of 1.23. Prealbumin 17.3. Blood cultures sterile thus far. ASSESSMENT: Nosocomial fevers. The patient appears to have had a stroke. Did discuss with Dr. Lui. At this point, it is not feasible to do a lumbar puncture. Certainly, at risk for other nosocomial related infectious complications, but he is concerned about the possibility of herpes simplex encephalitis. We will start empirically treating with acyclovir IV. Discussed with the patient and his family in addition that we will continue antibacterials. Certainly, multiple concerns including recent colitis, although she does not have an acute abdomen, it is difficult to ascertain. <ELECTRONICALLY SIGNED> By: Bryan Matson MD 12/04/18 0716 1428 [id number] Matson MD /nt
[2018-12-04 09:07] LABS: BE 0.3 mmol/L (-2 to +3); PCO2 29.5 mmHg (35.0-45.0); pH 7.512 (7.340-7.450)
[2018-12-04 09:11] LABS: PO2 136.7 mmHg (75.0-100.0)
[2018-12-05] VITALS (18 sets, daily range): BP systolic 115–160; BP diastolic 54–85
[2018-12-05 06:14] LABS: BE 2.9 mmol/L (-2 to +3); PCO2 36.1 mmHg (35.0-45.0); pH 7.481 (7.340-7.450)
[2018-12-05 06:25] LABS: HEMOGLOBIN 8.1 gm/dL (12.0-15.0); MCH 29.5 pg (26.0-34.0); MCHC 33.8 g/dL (28.0-37.0); MPV 6.9 fl. (7.2-11.1); RBC 2.76 mil/uL (4.20-5.00); RDW-CV 21.2 % (10.5-14.5); WBC 4.9 thou/uL (4.0-11.0)
[2018-12-05 06:27] LABS: PO2 136.4 mmHg (75.0-100.0)
[2018-12-05 06:33] LABS: APTT 25.4 Seconds (25.0-31.3); PROTIME 10.7 Seconds (9.20-11.50)
[2018-12-05 06:55] LABS: ALBUMIN 1.8 g/dL (3.4-5.0); CALCIUM 7.6 mg/dL (8.5-10.1); CREATININE 0.5 mg/dL (0.6-1.3); MAGNESIUM 1.3 mg/dL (1.8-2.4); TOTAL BILIRUBIN 0.3 mg/dL (<0.1-1.0); TOTAL PROTEIN 4.4 g/dL (6.4-8.2)
[2018-12-05 06:56] LABS: POTASSIUM 4.8 mmol/L (3.5-5.1)
[2018-12-05 07:35] LABS: CORTISOL AM 11.4 ug/dL (6.2-19.4)
[2018-12-05 17:30] LABS: CSF GLUCOSE 112 mg/dl (40-70); CSF PROTEIN 82.6 mg/dl (15-45)
[2018-12-05 17:40] LABS: CSF CLARITY CLEAR; CSF COLOR COLORLESS; CSF RBC 0 /mm3; CSF WBC 1 /mm3 (0-10); VOLUME 14 ml
[2018-12-06] VITALS: BP 140/63
[2018-12-06 04:00] VITALS: BP 157/78
[2018-12-06 06:51] LABS: HEMATOCRIT 26.1 % (37.0-47.0); HEMOGLOBIN 8.6 gm/dL (12.0-15.0); MCV 87.8 fL (80.0-100.0); MPV 7.1 fl. (7.2-11.1); RBC 2.97 mil/uL (4.20-5.00); RDW-CV 21.4 % (10.5-14.5); WBC 6.9 thou/uL (4.0-11.0)
[2018-12-06 07:18] LABS: CALCIUM 8.2 mg/dL (8.5-10.1); CREATININE 0.6 mg/dL (0.6-1.3)
[2018-12-06 08:37] VITALS: BP 147/72
--- NOTE | 2018-12-06 08:50 | CON ---
[address] [address] CONSULTATION Name: ALINAYIMIALEX YATES Room: [address] IN .R.#: [id number] Admission: 12/01/18 Attend Phys: Elaine Savage MD Discharge: Date of : 47 Report #: [id number] THIS REPORT FOR: //name// CC: Live Savage DATE OF SERVICE: 12/02/2018 REFERRING PHYSICIAN: Elaine Savage MD CHIEF COMPLAINT: Respiratory failure. HISTORY OF PRESENT ILLNESS: The patient is a 73-year-old female who was brought to the Emergency Room by her family. The patient apparently had a couple of seizures at home, not sure whether these were witnessed or not. Neurology has been involved in her care. During the course of her ER evaluation, she developed respiratory distress. She subsequently required intubation. Post-intubation followup chest x-ray revealed the ET tube to be in adequate position. Unfortunately, a large sized right pneumothorax was identified. A chest tube was inserted by the ER staff. The patient was eventually transferred to the Intensive Care Unit and we were asked to participate in her care. The patient is on a propofol drip. She is sedated and intubated with right-sided chest tube. She is unable to provide any information. Information for this document is taken from the patient's current [facility]. PAST MEDICAL HISTORY: Significant for chronic abdominal pain, encephalopathy in the past, renal failure, altered mental status, back pain of a chronic nature, anemia. She has had a history of colitis, recent hospitalization 11/26/2018-11/28/2018. She has a history of diabetes, reflux disorder, ovarian carcinoma in 1979. She has had a David bypass shunt and revision, depression, anxiety. ALLERGIES: SEVERAL MEDICATION ALLERGIES CONSISTING OF PHENOBARBITAL, DULERA, CONTRAST DYE, NALOXONE, KETOROLAC, FENTANYL, LYRICA, TRIMETHOBENZAMIDE, FLOW PROCHLORPERAZINE. REVIEW OF SYSTEMS: Not obtainable. FAMILY HISTORY: Not obtainable. CURRENT MEDICATIONS: Relafen, iron supplement, glyburide, glimepiride, stool softener, calcium supplement, Aricept, metoprolol, Xopenex aerosol treatments, levothyroxine, subcutaneous Lovenox. PHYSICAL EXAMINATION: [place] [address] CONSULTATION Name: YIMI FULLER Room: [address]#: [id number] Admission: 12/01/18 Attend Phys: Elaine Savage MD Discharge: Date of : 47 Report #: [id number] VITAL SIGNS: Blood pressure 89/50, respiratory rate 16, pulse rate 98, temperature 98 degrees. Her weight is 96 pounds. GENERAL APPEARANCE: The patient is sedated, intubated, has a right chest tube and Lange catheter. HEAD: Atraumatic. EYES: Pupils are round, equal, reactive. ORAL CAVITY: Moist. No lesions. Oral endotracheal tube. NECK: Supple, no adenopathy or JVD. CHEST: Diminished breath sounds. No wheezes or rhonchi. Chest tube was inserted on the right side. There is evidence of an air leak present as well. ABDOMEN: Soft. Large midline incision is noted from some prior surgery. EXTREMITIES: Without edema. CARDIOVASCULAR: Reveals regular rhythm. NEUROLOGIC: She is responsive, will open her eyes to command. LABORATORY DATA: Her initial arterial blood gases yesterday late afternoon revealed a pH of 7.16, pCO2 of 75, pO2 of 412 while on a nonrebreather mask. Approximately 2 to 2-1/2 hours later a followup arterial blood gas revealed a pH of 7.20, pCO2 of 78, pO2 of 139 while on BiPAP at 12/5 and 40% FiO2. Her most recent arterial blood gas at 6:30 a.m. today, which is the second one after being intubated reveals a pH 7.52, pCO2 of 23, pO2 of 130 with a bicarbonate of 18 while on assist control 16, tidal volume 500, PEEP of 5, and FiO2 of about 40%. Hemoglobin and hematocrit are 9.7 and 29, white count 7700. Platelet count is considered adequate. Electrolytes reveal sodium 128, potassium 3.3, chloride 94, CO2 of 27, BUN of 9, creatinine 0.7, EGFR of 82. On 10/28/2018, a proBNP was 2400. On 10/29/2018, a 2D echocardiogram was performed revealing an ejection fraction of 55%, left ventricular wall motion portion of the study was normal. There was no evidence of pulmonary hypertension. Chest x-ray reveals right-sided chest tube, no acute infiltrates. Lung appears reexpanded as a result of the chest tube insertion. ASSESSMENT: 1. Acute hypercapnic hypoxemic respiratory failure requiring intubation. 2. Post-intubation pneumothorax, status post chest tube insertion with an ongoing air leak. 3. Seizure disorder, undetermined etiology. 4. Debility with what appears to be malnutrition and history of weight loss from the records. 5. History of colitis a week or so ago. 6. History of diabetes. 7. Tobacco abuse with presumed chronic obstructive pulmonary disease. 8. Respiratory alkalosis. RECOMMENDATION: The patient will undergo continued ventilator support, adjust [address] [place] [address] CONSULTATION Name: YIMI FULLER Room: [address] IN [facility]#: [id number] Admission: 12/01/18 Attend Phys: Elaine Savage MD Discharge: Date of : 47 Report #: [id number] ventilator to hopefully improve her CO2 towards normal or slightly hypercapnic. I believe the patient may be a little on the hypercapnic side at this point. Follow up x-ray and ABGs in the a.m. Continue with bronchodilator coverage, a short course of steroids. The patient has significant electrolyte abnormality. Serum sodium needs to be normalized, potassium needs to be replaced. We will add potassium-magnesium replacement protocol. Approximately 35 minutes spent conducting the current document. <ELECTRONICALLY SIGNED> By: Debi Laurent MD 12/06/18 0850 1125 1825Albonny Almazan MD /nt
[2018-12-06 12:21] VITALS: BP 175/82
[2018-12-06 18:37] VITALS: BP 161/80
[2018-12-06 20:00] VITALS: BP 198/101
[2018-12-07] VITALS: BP 185/93
[2018-12-07 04:00] VITALS: BP 197/84
[2018-12-07 06:01] LABS: HEMATOCRIT 30.1 % (37.0-47.0); HEMOGLOBIN 9.2 gm/dL (12.0-15.0); MCH 24.5 pg (26.0-34.0); MCHC 30.5 g/dL (28.0-37.0); MPV 8.5 fl. (7.2-11.1); RBC 3.75 mil/uL (4.20-5.00); RDW-CV 30.8 % (10.5-14.5); WBC 13.2 thou/uL (4.0-11.0)
[2018-12-07 06:18] LABS: MCV 80.2 fL (80.0-100.0)
[2018-12-07 07:46] LABS: ALBUMIN 1.4 g/dL (3.4-5.0); ALKALINE PHOSPHATASE 70 U/L (46-116); ANION GAP 8 mmol/L (7-16); BUN 16 mg/dL (7-18); CALCIUM 7.8 mg/dL (8.5-10.1); CHLORIDE 113 mmol/L (98-107); CO2 22 mmol/L (21-32); CREATININE 0.8 mg/dL (0.6-1.3); GLUCOSE 83 mg/dL (70-99); MAGNESIUM 1.8 mg/dL (1.8-2.4); POTASSIUM 3.1 mmol/L (3.5-5.1); SGOT 14 U/L (15-37); SGPT < 6 U/L (30-65); TOTAL BILIRUBIN 0.4 mg/dL (<0.1-1.0)
[2018-12-07 07:47] LABS: SODIUM 143 mmol/L (136-145)
[2018-12-07 08:16] VITALS: BP 171/85
[2018-12-07 12:00] VITALS: BP 156/78
--- NOTE | 2018-12-07 13:52 | EEG ---
[address] [address] EEG STUDY REPORT Name: ARIANANANDAYIMI MILAN Room: [address] IN M.R.#: [id number] Admission: 12/01/18 Attend Phys: Elaine Savage MD Discharge: Date of : 47 Report #: [id number] THIS REPORT FOR: //name// CC: Live Savage DATE OF SERVICE: 12/04/2018 This patient is being evaluated by EEG to look for any change in periodic lateralizing epileptiform discharges. The patient's background activity appeared to be about 6 Hz and 30 microvolt. It is intermixed with delta range slowing. The patient continued to demonstrate periodic lateralizing epileptiform discharges from the right side. Those are unchanged since last time. Photic stimulation is unremarkable. IMPRESSION: This is an abnormal EEG, which demonstrate periodic lateralizing epileptiform discharges from the right side, which is about the same as it was yesterday. Thank you very much for this referral. <ELECTRONICALLY SIGNED> By: Duncan Lui MD 12/07/18 1352 1707 1716Duncan Lui MD /nt
--- NOTE | 2018-12-07 13:52 | EEG ---
[address] [address] EEG STUDY REPORT Name: YIMI FULLER Room: [address] IN M.R.#: [id number] Admission: 12/01/18 Attend Phys: Elaine Savage MD Discharge: Date of : 47 Report #: [id number] THIS REPORT FOR: //name// CC: Live Savage DATE OF SERVICE: 12/02/2018 SUBJECTIVE: This is a 73-year-old female patient who was evaluated for seizure. EEG was done by placing the electrode by standard 10-20 system of electrode placement. Both referential and sequential montages were used for recording. Background activity in this patient's EEG is about 6-7 Hz and 30 microvolt. This is an asymmetrical activity. The patient appeared to have periodic lateralizing epileptiform discharges arising from the right side. Photic stimulation was unremarkable. IMPRESSION: The patient appeared to be showing periodic lateralizing epileptiform discharges from the left side. It is generalized in the right cerebral hemisphere. Some of it may be present on the right side, but the finding is mild. Thank you very much for this referral. <ELECTRONICALLY SIGNED> By: Duncan Lui MD 12/07/18 1352 1153 1856Parbryan Lui MD /nt
--- NOTE | 2018-12-07 13:52 | EEG ---
[address] [address] EEG STUDY REPORT Name: YIMI FULLER Room: [address] IN M.R.#: [id number] Admission: 12/01/18 Attend Phys: Elaine Savage MD Discharge: Date of : 47 Report #: [id number] THIS REPORT FOR: //name// CC: Live Savage DATE OF SERVICE: 12/05/2018 This patient is being evaluated for periodic lateralizing epileptiform discharges. EEG was done for comparison. Background activity still shows about 6-7 Hz and 30 microvolt. The patient went to sleep and that is associated with bilateral slowing. Photic stimulation is unremarkable. The patient still has periodic lateralizing epileptiform discharges on the right side and maybe some on the left side. They are prominent in the frontotemporal area. IMPRESSION: This patient's electroencephalogram continues to demonstrate periodic lateralizing epileptiform discharges. They are more prominent on the right side, but they are also reflected on the left side. Thank you very much for this referral. <ELECTRONICALLY SIGNED> By: Duncan Lui MD 12/07/18 1352 1640 1653Pperla Lui MD /nt
--- NOTE | 2018-12-07 13:52 | CON ---
[facility] [address] [place] [address] CONSULTATION Name: YIMI FULLER Room: [address] IN M.R.#: [id number] Admission: 12/01/18 Attend Phys: Elaine Savage MD Discharge: Date of : 46 Report #: [id number] THIS REPORT FOR: //name// CC: Live Savage DATE OF SERVICE: 12/02/2018 HISTORY OF PRESENT ILLNESS: This is a 73-year-old female patient who was admitted with extremely complex history. I talked to the Emergency Room physician last night. Subsequently, I talked to the night nurse who was taking care of this patient last night. I talked to the day nurse this morning. I talked to the patient's this morning and subsequently the daughter also wanted to talk and I talked to the patient's daughter later on. The patient was seen today because of weather. The patient has some baseline cognitive deficits according to the family. She is still able to recognize people. She can recognize the people whom she has seen recently and the one she has not seen for some time. However, her short term memory is poor. She has stopped driving about 5 years ago. indicates that he has to help her with the day-to-day activities significantly. Daughter noticed that she had some left-sided weakness when she went to see this patient. That was early in the morning. She has noticed left-sided weakness, but then she noticed that the patient started having seizures. They gave a pretty good history of 2 grand mal seizures this patient had. When her blood sugar was checked, it was in 130s and 140s. So, she had no definite hypoglycemia documented for the seizure. She never had any seizure before. She has multiple problems going on at the moment. As I understand, she has pneumothorax. She is on ventilation. Her first blood gas has indicated a pCO2 of 74 at 5:30. So, she did have a pretty significant increase in pCO2. Presently, she is on sedation, but even when sedation is lightened, she does not respond. She minimally tried to open her eyes, but does not do anything else at all for me. This is involving all 4 extremities. REVIEW OF SYSTEMS: Indicates cognitive deficits, but they were stable. It used to get decompensated when she gets urinary tract infection. Family indicates she becomes very agitated and confused at times. She has a history of uterine carcinoma. She had bypass surgery on the stomach. She had multiple fractures in the past. This was her relevant 14-point review of system. PAST MEDICAL HISTORY: Positive for numerous problems and looks like memory is somewhat affected. FAMILY HISTORY: Negative for early age stroke. SOCIAL HISTORY: She drinks very little alcohol, [place] [address] CONSULTATION Name: ARIANANANDAYIMIALEX YATES Room: [address] IN [facility]#: [id number] Admission: 12/01/18 Attend Phys: Elaine Savage MD Discharge: Date of : 47 Report #: [id number]. PHYSICAL EXAMINATION: Limited. She does not do anything for me. Her pupils are midpoint and did not react for me. I could not make her move anything, but apparently initially, she had weakness on the left side. I got an EEG done and that does appear to be showing periodic lateralizing epileptiform discharges on the right side. LABORATORY DATA: However, her MRI and MRA is unremarkable and did not show any stroke. IMPRESSION: This is a complicated patient and we do not have an established diagnosis yet. Typically, this will be a stroke causing seizure, but she has no evidence of stroke on MRI. The workup is limited. This is because she is on a vent. She has a chest tube and we cannot take her for repeat MRI. Similarly, we cannot do a spinal tap. It does not look like a C-spine problem, but ruling that out is also very difficult because of the chest tube and her baseline condition. She is not in a position to go for anything like CAT scan. I initially discussed the situation with the patient's . Subsequently, I talked to the patient's daughter. I discussed with them our options and our limitation. They understood all those. PLAN: 1. Give her Keppra. 2. Await stabilization from pulmonary point of view. 3. Once she is off the vent and off the chest tube, then we will take her for a repeat MRI. 4. We will continue to monitor the EEG. 5. We may or may not repeat any other workup in this patient. All of it was discussed with the family and the patient. More than 60 minutes of time was spent taking care of this patient and majority of that time was spent counseling and coordinating her care. <ELECTRONICALLY SIGNED> By: Duncan Lui MD 12/07/18 1352 1449 2201Pperla Lui MD /nt
--- NOTE | 2018-12-07 13:52 | EEG ---
[address] [address] EEG STUDY REPORT Name: YIMI FULLER Room: [address] IN M.R.#: [id number] Admission: 12/01/18 Attend Phys: Elaine Savage MD Discharge: Date of : 47 Report #: [id number] THIS REPORT FOR: //name// CC: Live Savage DATE OF SERVICE: 12/03/2018 This patient was evaluated as a followup for seizure. EEG was done by placing the electrodes by standard 10-20 system of electrode placement. Both referential and sequential montages were used for recording. Background activity in this patient's EEG is about 4-5 Hz and 30 microvolt. It is slow on both sides. Some periodic lateralizing epileptiform discharges are still present, but only a small amount. Photic stimulation is unremarkable. IMPRESSION: Very difficult to interpret the electroencephalogram because the electroencephalogram is masked by a lot of artifact. The activity has significantly decreased since yesterday, but some residue activity appeared to be present. Thank you very much for this referral. <ELECTRONICALLY SIGNED> By: Duncan Lui MD 12/07/18 1352 1636 1641Pperla Lui MD /nt
[2018-12-07 20:00] VITALS: BP 129/47
[2018-12-08 00:41] VITALS: BP 128/55
[2018-12-08 04:10] VITALS: BP 152/72
[2018-12-08 05:50] LABS: HEMATOCRIT 26.1 % (37.0-47.0); HEMOGLOBIN 8.7 gm/dL (12.0-15.0); MCH 29.5 pg (26.0-34.0); MCHC 33.3 g/dL (28.0-37.0); MPV 7.1 fl. (7.2-11.1); RBC 2.94 mil/uL (4.20-5.00); RDW-CV 21.2 % (10.5-14.5); WBC 9.8 thou/uL (4.0-11.0)
[2018-12-08 06:05] LABS: MCV 88.6 fL (80.0-100.0)
[2018-12-08 06:15] LABS: ALBUMIN 1.8 g/dL (3.4-5.0); CALCIUM 8.5 mg/dL (8.5-10.1); CREATININE 0.4 mg/dL (0.6-1.3); MAGNESIUM 1.5 mg/dL (1.8-2.4); PHOSPHORUS* 1.7 mg/dL (2.5-4.9); POTASSIUM 3.5 mmol/L (3.5-5.1)
[2018-12-08 08:20] VITALS: BP 140/59
[2018-12-08 12:06] VITALS: BP 175/79
--- NOTE | 2018-12-08 14:28 | EKG ---
[place] [address] ELECTROCARDIOGRAM REPORT Name: YIMI FULLER Room: [address] ADM IN M.R.#: [id number] Admission: 12/01/18 Attend Phys: Elaine Savage MD Discharge: Date of : 46 Report #: [id number] THIS REPORT FOR: //name// [facility] Test Date: 2018-12-08 Test Time: 11:29:49 Pat Name: YIMI ARIANANANDA Department: Room: [address] Gender: F Implementation Advisor: [facility] : 1945 Requested By: Live Bolton Order Number: [id number] Reading MD: Indra Jones Measurements Intervals [place] Rate: 92 P: 73 CO: 163 QRS: -24 QRSD: 114 T: 152 QT: 344 QTc: 426 Interpretive Statements Incomplete analysis due to missing data in precordial lead(s) Sinus rhythm anterior infarction age indeterminate Missing lead(s): V4 Compared to ECG 12/01/2018 16:41:54 Sinus tachycardia no longer present Electronically Signed On 12-08-2018 14:27:47 SERVICE DESK TECHNICIAN by Indra Jones [email or web address] <ELECTRONICALLY SIGNED> By: Indra Jones MD, [facility] 12/08/18 1427 1129 1129 Indra Jones MD, [facility] /EPI
[2018-12-08 15:56] VITALS: BP 150/67
[2018-12-08 20:00] VITALS: BP 138/66
[2018-12-08 21:06] LABS: HSV 1 DNA Negative (Negative); HSV 2 DNA Negative (Negative)
[2018-12-09] VITALS: BP 163/85
[2018-12-09 04:00] VITALS: BP 145/76
[2018-12-09 06:12] LABS: CALCIUM 8.6 mg/dL (8.5-10.1); CREATININE 0.4 mg/dL (0.6-1.3); MAGNESIUM 1.6 mg/dL (1.8-2.4); POTASSIUM 3.6 mmol/L (3.5-5.1)
[2018-12-09 08:08] VITALS: BP 149/73
[2018-12-09 12:00] VITALS: BP 163/77
[2018-12-09 16:00] VITALS: BP 141/70
[2018-12-09 17:13] LABS: M-SPIKE Not Observed g/dL (Not Observed)
[2018-12-09 20:00] VITALS: BP 136/72
[2018-12-10] VITALS: BP 153/76
[2018-12-10 04:00] VITALS: BP 139/64
[2018-12-10 04:52] LABS: HEMATOCRIT 22.7 % (37.0-47.0); HEMOGLOBIN 7.6 gm/dL (12.0-15.0); MCH 29.6 pg (26.0-34.0); MCHC 33.6 g/dL (28.0-37.0); MPV 7.6 fl. (7.2-11.1); RBC 2.58 mil/uL (4.20-5.00); RDW-CV 21.3 % (10.5-14.5); WBC 7.5 thou/uL (4.0-11.0)
[2018-12-10 05:16] LABS: ALBUMIN 1.6 g/dL (3.4-5.0); CALCIUM 8.4 mg/dL (8.5-10.1); CREATININE 0.4 mg/dL (0.6-1.3); MAGNESIUM 1.6 mg/dL (1.8-2.4); POTASSIUM 3.2 mmol/L (3.5-5.1); TOTAL BILIRUBIN 0.2 mg/dL (<0.1-1.0); TOTAL PROTEIN 4.4 g/dL (6.4-8.2)
[2018-12-10 08:00] VITALS: BP 129/53
[2018-12-10 12:48] VITALS: BP 144/63
[2018-12-10 16:07] LABS: CSF ALBUMIN 52.1 % (56.8-76.4); CSF ALPHA 1 7.2 % (1.1-6.6); CSF ALPHA 2 9.7 % (3.0-12.6); CSF PRE-ALBUMIN 3.9 % (2.2-7.1)
[2018-12-10 17:18] VITALS: BP 137/76
[2018-12-10 20:00] VITALS: BP 123/69
[2018-12-11] VITALS: BP 144/68
[2018-12-11 04:00] VITALS: BP 164/78
[2018-12-11 06:03] LABS: HEMATOCRIT 21.3 % (37.0-47.0); MCH 29.7 pg (26.0-34.0); MCHC 33.1 g/dL (28.0-37.0); MCV 89.7 fL (80.0-100.0); MPV 7.6 fl. (7.2-11.1); RBC 2.37 mil/uL (4.20-5.00); RDW-CV 21.5 % (10.5-14.5)
[2018-12-11 06:20] LABS: CALCIUM 8.4 mg/dL (8.5-10.1); CREATININE 0.6 mg/dL (0.6-1.3); MAGNESIUM 1.7 mg/dL (1.8-2.4); POTASSIUM 3.7 mmol/L (3.5-5.1)
[2018-12-11 12:00] VITALS: BP 140/55
--- NOTE | 2018-12-11 13:47 | EEG ---
[address] [address] EEG STUDY REPORT Name: YIMI FULLER Room: [address] IN M.R.#: [id number] Admission: 12/01/18 Attend Phys: Elaine Savage MD Discharge: Date of : 47 Report #: [id number] THIS REPORT FOR: //name// CC: Live Savage DATE OF SERVICE: 12/08/2018 DESCRIPTION: The patient's EEG was done for comparison with the last EEG. EEG was done by placing the electrodes by standard 10-20 system of electrode placement. Both referential and sequential montages were used for recording. Background activity in this patient's EEG is about 7 Hz and 20 microvolts on the left side. On the right side, lot of artifact is present. However, periodic lateralizing epileptiform discharges still appear to be present. IMPRESSION: This patient's EEG continued to demonstrate periodic epileptiform discharges. They are improved from the first EEG, but still present. Thank you very much for this referral. <ELECTRONICALLY SIGNED> By: Duncan Lui MD 12/11/18 1347 1540 1625Duncan Lui MD /nt
[2018-12-11 20:00] VITALS: BP 150/72
[2018-12-12] VITALS (7 sets, daily range): BP systolic 123–162; BP diastolic 52–73
[2018-12-12 06:13] LABS: HEMATOCRIT 21.7 % (37.0-47.0); HEMOGLOBIN 7.2 gm/dL (12.0-15.0); MCH 29.7 pg (26.0-34.0); MCHC 33.1 g/dL (28.0-37.0); MCV 89.8 fL (80.0-100.0); MPV 7.3 fl. (7.2-11.1); RBC 2.41 mil/uL (4.20-5.00); RDW-CV 21.3 % (10.5-14.5); WBC 6.2 thou/uL (4.0-11.0)
[2018-12-12 06:17] LABS: CALCIUM 8.6 mg/dL (8.5-10.1); CREATININE 0.4 mg/dL (0.6-1.3); POTASSIUM 3.9 mmol/L (3.5-5.1)
[2018-12-12 12:35] LABS: CALCIUM 8.9 mg/dL (8.5-10.1); CREATININE 0.4 mg/dL (0.6-1.3)
[2018-12-13] VITALS (7 sets, daily range): BP systolic 121–147; BP diastolic 54–75
[2018-12-14] VITALS: BP 138/64
[2018-12-14 04:00] VITALS: BP 127/54
[2018-12-14 08:00] VITALS: BP 121/46
[2018-12-14 11:52] VITALS: BP 124/65
--- NOTE | 2018-12-14 12:50 | EEG ---
[address] [address] EEG STUDY REPORT Name: YIMI FULLER Room: [address] IN ..#: [id number] Admission: 12/01/18 Attend Phys: Elaine Savage MD Discharge: Date of : 46 Report #: [id number] THIS REPORT FOR: //name// CC: Live Savage DATE OF SERVICE: 12/12/2018 HISTORY: The patient is a 73-year-old female who has a seizure disorder. The patient is currently on lacosamide and levetiracetam. DESCRIPTION: The record consists of a background rhythm of approximately 7 Hz. Beta activity is seen, as is EMG artifact. However, spikes are noted at T6 and occur intermittently, but not in a rhythmical pattern, sometimes every 2-3 seconds. No clear seizure activity is noted. IMPRESSION: This is an abnormal adult awake record with frequent spikes seen over the right posterior temporal head region. There is no evidence of subclinical seizure activity. <ELECTRONICALLY SIGNED> By: Catarina Barbosa DO 12/14/18 1250 1248 1306Catarina Barbosa DO /nt
[2018-12-14 14:00] VITALS: BP 140/69
[2018-12-14] MEDS ORDERED: PROBIOTIC1 EAC1 PO (14:59)
[2018-12-14] MEDS ORDERED: TRAMADOL 50 MG50 MG PO (15:00)
[2018-12-14 20:55] VITALS: BP 152/73
[2018-12-15] VITALS: BP 143/62
[2018-12-15 07:45] VITALS: BP 131/57
[2018-12-15 15:30] VITALS: BP 133/66
--- NOTE | 2018-12-15 15:54 | CON ---
[address] [address] CONSULTATION Name: YIMI FULLER Room: [address] IN M.R.#: [id number] Admission: 12/01/18 Attend Phys: Elaine Savage MD Discharge: Date of : 47 Report #: [id number] THIS REPORT FOR: //name// CC: Live Savage DATE OF SERVICE: 12/02/2018 REQUESTING PHYSICIAN: Dr. Savage. REASON FOR CONSULTATION: Hyponatremia. HISTORY OF PRESENT ILLNESS: This patient is a 73-year-old female who was admitted to the hospital yesterday. She was brought to the Emergency Room with complaints of the left-sided weakness and left-sided facial droop that was noted by the patient's family and they brought her here. After she was brought to Emergency Room, she started having some seizures, so she had seizure for 30-45 seconds. Her blood pressure was 180/100. Her lab report, which was evaluated here revealed a serum sodium of 126 that was yesterday, today is 128 with normal saline. On 10/30/2018, it was as low as 106. I did see the patient on 10/31/2018. PAST MEDICAL HISTORY: Significant for diabetes mellitus type 2, history of ovarian cancer, history of depression, history of fibromyalgia, history of deconditioning. She has coronary artery disease, history of non-STEMI. MEDICATIONS: Prior to admission reviewed and she is on multiple medications. From my standpoint, she was on furosemide 40 mg a day. SOCIAL HISTORY: No tobacco or alcohol abuse. FAMILY HISTORY: Noncontributory. REVIEW OF SYSTEMS: The patient is intubated. PHYSICAL EXAMINATION: GENERAL: The patient is in Intensive Care Unit, intubated. HEENT: Pupils are round. LUNGS: Decreased air movement. CARDIOVASCULAR: Reveals tachycardia. ABDOMEN: Soft. LOWER EXTREMITIES: With trace edema. LABORATORY REPORT: Serum sodium 128, potassium 4.5, chloride 94, BUN 9, [place] [address] CONSULTATION Name: ALINAYIMIALEX YATES Room: [address]#: [id number] Admission: 12/01/18 Attend Phys: Elaine Savage MD Discharge: Date of : 46 Report #: [id number] creatinine 0.7, magnesium 2.9. Hemoglobin is 9.7. ASSESSMENT: Mild hyponatremia. Hyponatremia at level of 126-128 usually does not cause seizures. Renal functions are normal. PLAN: Recommend to hold her diuretics. Continue with the saline. Monitor serum sodium. Thank you very much for asking my opinion on hyponatremia. <ELECTRONICALLY SIGNED> By: Pierre Hanley MD 12/15/18 1554 1633 2201Alexandtita Hanley MD /LULU
--- NOTE | 2018-12-15 18:30 | CON ---
[address] [address] CONSULTATION Name: YIMI FULLER Room: [address] IN M.R.#: [id number] Admission: 12/01/18 Attend Phys: Elaine Savage MD Discharge: Date of : 47 Report #: [id number] THIS REPORT FOR: //name// CC: Live Canales DICTATED BY: Angy Arvizu [facility] DATE OF SERVICE: 12/11/2018 PRIMARY CARE PHYSICIAN: Live Richardson DO. Please note at the time of this dictation, the patient was seen and physically examined by myself. REASON FOR CONSULTATION: Anemia and possible PEG tube placement. HISTORY OF PRESENT ILLNESS: This is a 73-year-old female who was previously seen in the hospital on 11/26/[address] Blunt for infectious colitis and no endoscopy studies were done at that time and she seemed to have gone home on 11/28/2018, who then was readmitted on 12/01/2018. Apparently, she was having seizures being uncontrollable and she had some left-sided weakness. However, thus far, her history and workup has been inconclusive for a stroke. She is having another repeat EEG done today. During all of this, she was so obtunded that she was intubated for a period of time. She did develop a pneumothorax, which is resolving and Pulmonary has signed off. Neurology is on board and having another EEG today. She did fail her bedside swallowing test. She has been on TPN for the last 5 days and we were asked to come in for evaluation for a feeding tube. It was also noted that when she was here on 11/26/2018, her hemoglobin was 12.9. Today, her hemoglobin is only 7. There is no overt bleeding, upper or lower, noted at this time. She did undergo an EGD and colonoscopy back in 09/2018 that showed reactive erosive gastropathy, ulceration, granulation and negative for H. pylori. Her colon showed some diverticular disease in the sigmoid, internal and external hemorrhoids, but due to her poor prep, it was recommended to repeat in 2 months. It was also noted, during her hospitalization in November, that she had a pancreatic tail mass that needed further evaluation to be done on an outpatient. PAST MEDICAL HISTORY: Diabetes, GERD, fibromyalgia, ovarian cancer as well as uterine cancer, depression, anxiety, coronary artery disease and hypothyroidism. PAST SURGICAL HISTORY: Tonsillectomy, appendectomy, kidney stones, knee surgeries and shoulder surgery. She has had a knee replacement. ALLERGIES: INCLUDE LYRICA, BUTORPHANOL, ERGOLOID, FENTANYL, KETOROLAC, [place] [address] CONSULTATION Name: YIMI FULLER Room: [address] IN .R.#: [id number] Admission: 12/01/18 Attend Phys: Elaine Savage MD Discharge: Date of : 46 Report #: [id number] NALOXONE, CONTRAST DYE, DULERA, MUSHROOMS, NALBUPHINE, PHENOBARBITAL, SUMATRIPTAN AND TRIMETHOBENZAMIDE. MEDICATIONS: From home, magnesium oxide, atorvastatin, trazodone, carvedilol, omeprazole, Aricept, Carafate, Lasix, Glucophage, Klor-Con, glucosamine, Tums, lactulose, MiraLax, morphine sulfate, Colace, Amaryl, Protonix, Cymbalta, iron, Biotene, Relafen, Cipro, Flagyl and Synthroid. FAMILY HISTORY: Noncontributory. SOCIAL HISTORY: Lives with her . Alcohol use on occasion. REVIEW OF SYSTEMS: Twelve-point review of systems is essentially negative, except what is mentioned in the HPI. PHYSICAL EXAMINATION: VITAL SIGNS: Temperature 36.9, pulse 107, respirations 18 and blood pressure 164/78. HEART: Regular rate and rhythm, somewhat tachycardic. LUNGS: Slightly diminished somewhat on the right, with some coarse sounds. ABDOMEN: Soft. Positive bowel sounds in all 4 quadrants, with no distention noted. NEUROLOGIC: The patient is awake, but does not respond appropriately to questions. LABORATORY DATA: Currently today, hemoglobin 7, white count is 6, hematocrit 21.3 and platelets 300,000. GFR is 98. IMPRESSION: 1. Anemia. 2. Nutritional support. 3. Failed bedside swallowing. 4. Seizure, unknown etiology. 5. Recent history of infectious colitis and was treated from previous hospitalization earlier in November. 6. History of pancreatic tail mass. PLAN: 1. EGD tomorrow with Dr. Meza with possible PEG tube placement. 2. If unable to place PEG tube due to the patient's altered anatomy, will need to have surgery. IR placed a jejunostomy tube for this reason. 3. We will consult dietary for her tube feeding recommendations. 4. Depending on the above, may consider colonoscopy once an altered source for feeding has been determined and determine timing at that time. Thank you for allowing us to participate in this patient[place] [address] CONSULTATION Name: YIMI FULLER Room: [address] IN [facility].#: [id number] Admission: 12/01/18 Attend Phys: Elaine Savage MD Discharge: Date of : 47 Report #: [id number] hesitate to call with any questions in regard to this consult. I have seen and examined the patient and reviewed labs and imaging. I agree with the nurse practitioner assessment and plan. We will proceed with upper endoscopy to evaluate her difficulty swallowing and her anemia. I am not sure if her anatomy will allow us to put a feeding tube. We will assist that during the procedure. She will also need a colonoscopy at some point in reference to her anemia. During this hospitalization, imaging also suggestive of pancreatic tail lesion, which we will consider endoscopic ultrasound with possible FNA. We will make further recommendation based on upper endoscopic finding. <ELECTRONICALLY SIGNED> By: Glen Meza MD 12/15/18 1830 1218 2324Glen Meza MD /nt
--- NOTE | 2018-12-15 18:30 | CON ---
[address] [address] CONSULTATION Name: YIMI FULLER Room: [address] IN M.R.#: [id number] Admission: 12/01/18 Attend Phys: Elaine Savage MD Discharge: Date of : 46 Report #: [id number] THIS REPORT FOR: //name// CC: Live Savage DATE OF SERVICE: 12/11/2018 ADDENDUM CONSULTATION DICTATION NUMBER: [id number]. I have seen and examined the patient and reviewed labs and imaging. I agree with the nurse practitioner assessment and plan. We will proceed with upper endoscopy to evaluate her difficulty swallowing and her anemia. I am not sure if her anatomy will allow us to put a feeding tube. We will assist that during the procedure. She will also need a colonoscopy at some point in reference to her anemia. During this hospitalization, imaging also suggestive of pancreatic tail lesion, which we will consider endoscopic ultrasound with possible FNA. We will make further recommendation based on upper endoscopic finding. <ELECTRONICALLY SIGNED> By: Glen Meza MD 12/15/18 1830 0843 2129Glen Meza MD /nt
[2018-12-15 20:00] VITALS: BP 118/45
[2018-12-16] VITALS (7 sets, daily range): BP systolic 116–142; BP diastolic 53–79
[2018-12-16 15:44] LABS: URINE BILIRUBIN NEGATIVE (Negative); URINE BLOOD NEGATIVE (Negative); URINE CLARITY CLOUDY; URINE COLOR YELLOW; URINE GLUCOSE-RANDOM 1+ (Negative); URINE KETONES NEGATIVE (Negative); URINE LEUKOCYTES-REFLEX TRACE (Negative); URINE NITRITE-REFLEX NEGATIVE (Negative); URINE PROTEIN NEGATIVE (Negative); URINE UROBILINOGEN 0.2 E.U./dl (0.2-1.0)
[2018-12-16 15:54] LABS: BACTERIA-REFLEX 1-9 Few /HPF (None Seen); CASTS None Seen /LPF (None Seen); SQUAMOUS NONE SEEN /LPF (0-3); URINE RBC None Seen /HPF (0-2); URINE WBC-REFLEX 0-5 Rare /HPF (0-5)
[2018-12-16 15:55] LABS: CRYSTALS None Seen /LPF (None Seen); YEAST-REFLEX Present (None Seen)
[2018-12-16 15:59] LABS: INFLUENZA A ANTIGEN None Detected (None Detect); INFLUENZA B ANTIGEN None Detected (None Detect)
[2018-12-16 16:06] LABS: ALBUMIN 1.7 g/dL (3.4-5.0); DIRECT BILIRUBIN 0.1 mg/dL (<0.1-0.3); TOTAL BILIRUBIN 0.6 mg/dL (<0.1-1.0); TOTAL PROTEIN 4.1 g/dL (6.4-8.2)
[2018-12-17] VITALS: BP 157/72
[2018-12-17 05:13] LABS: HEMATOCRIT 21.3 % (37.0-47.0); HEMOGLOBIN 7.1 gm/dL (12.0-15.0); MCH 29.7 pg (26.0-34.0); MCHC 33.5 g/dL (28.0-37.0); MCV 88.7 fL (80.0-100.0); MPV 7.6 fl. (7.2-11.1); RBC 2.4 mil/uL (4.20-5.00); RDW-CV 17.9 % (10.5-14.5); WBC 15.6 thou/uL (4.0-11.0)
[2018-12-17 05:37] LABS: ALBUMIN 1.5 g/dL (3.4-5.0); CALCIUM 8.5 mg/dL (8.5-10.1); CREATININE 0.5 mg/dL (0.6-1.3); TOTAL BILIRUBIN 0.2 mg/dL (<0.1-1.0); TOTAL PROTEIN 4.3 g/dL (6.4-8.2)
[2018-12-17 08:00] VITALS: BP 115/38
[2018-12-17 09:39] LABS: BE 3.5 mmol/L (-2 to +3); PCO2 33.5 mmHg (35.0-45.0); PO2 101.1 mmHg (75.0-100.0); pH 7.514 (7.340-7.450)
[2018-12-17 15:47] VITALS: BP 121/47
[2018-12-17 20:00] VITALS: BP 135/60
[2018-12-18] VITALS: BP 133/54
[2018-12-18 08:00] VITALS: BP 136/67
[2018-12-18 09:32] LABS: HEMATOCRIT 21.2 % (37.0-47.0); HEMOGLOBIN 7.1 gm/dL (12.0-15.0); MCH 30.1 pg (26.0-34.0); MCHC 33.4 g/dL (28.0-37.0); MCV 90.1 fL (80.0-100.0); MPV 8.3 fl. (7.2-11.1); RBC 2.35 mil/uL (4.20-5.00); RDW-CV 17.6 % (10.5-14.5); WBC 9.8 thou/uL (4.0-11.0)
[2018-12-18 09:38] LABS: CALCIUM 8.5 mg/dL (8.5-10.1); CREATININE 0.5 mg/dL (0.6-1.3)
--- NOTE | 2018-12-18 12:05 | PATH ---
[address] [address] PATHOLOGY RPT PROCEDURE Name: YIMI WEIR Room: [address] IN .R.#: [id number] Admission: 12/01/18 Date of : 47 Discharge: Report #: [id number] Path Case #: [id number] [facility] Accession Number: [id number] . 01 Material submitted: . GASTRIC BIOPSY . 01 Clinical history: . Gastritis, narrow esophagus . 02 Diagnosis: Gastric biopsy: - Mild nonspecific chronic gastritis, negative for Helicobacter pylori organisms and dysplasia. (MARICARMEN:pit 12/16/2018) . . Special stain: H. pylori immuno QTP/12/16/2018 . 02 Electronically signed: . Florin Rain MD, Pathologist NPI- [id number] . 01 Gross description: . The specimen is received in formalin, labeled "Yimi Weir, gastric biopsy" and consists of 5 fragments of soft nunez-brown tissue measuring between 0.2 x 0.2 cm and 0.5 x 0.2 x 0.1 cm. They are entirely submitted in A1. (SDY; 12/15/2018) SYU/SYU . 02 Pathologist provided ICD-10: K29.50 . 02 CPT . 466305, I31151 Specimen Comment: A courtesy copy of this report has been sent to Specimen Comment: [phone], , . Specimen Comment: Report sent to ,DR QUINTERO / DR TADEO Specimen Comment: A duplicate report has been generated due to demographic updates. Performed at: [address] [id number] MD Brandin Rangel MD Phone: [phone] Performed at: [address] [place] [id number] PATHOLOGY RPT PROCEDURE Name: YIMI WEIR MILAN Room: [address] IN [facility]#: [id number] Admission: 12/01/18 Date of : 47 Discharge: Report #: [id number] Path Case #: [id number] [address] [facility] [place] [id number] MD Florin Rain MD Phone: [phone]
[2018-12-18 14:00] VITALS: BP 143/64
--- NOTE | 2018-12-18 14:30 | 2DMMODE ---
[place] [address] 2 D/M-MODE ECHOCARDIOGRAM Name: YIMI FULLER Room: [facility] IN R#: [id number] Admission: 12/01/18 Attend Phys: Elaine Savage, Discharge: Date of : 47 Date of Service: 12/18/18 1430 Report #: [id number] THIS REPORT FOR: //name// APPROVED REPORT Study performed: 12/18/2018 09:37:12 EXAM: Limited 2D Echocardiogram Patient Location: In-Patient Room #: [facility] Status: routine BSA: 1.78 HR: 101 bpm BP: 133/54 mmHg Rhythm: NSR Other Information Study Quality: Good Indications Sepsis Left Ventricle The left ventricle is normal size. There is normal LV segmental wall motion. There is normal left ventricular wall thickness. The left ventricular systolic function is normal. The left ventricular ejection fraction is within the normal range. LVEF is 55-60%. Right Ventricle The right ventricle is normal size. The right ventricular systolic function is normal. Atria Left atrium is mildly dilated. The right atrium size is normal. Aortic Valve Mild aortic valve sclerosis. No aortic regurgitation is present. There is no aortic valvular vegetation. There is no aortic valvular stenosis. Mitral Valve There is mitral annular calcification. There is no mitral valve vegetation[place] [address] 2 D/M-MODE ECHOCARDIOGRAM Name: YIMI FULLERINE Room: [address] IN M.R.#: [id number] Admission: 12/01/18 Attend Phys: Elaine Savage, Discharge: Date of : 47 Date of Service: 12/18/18 1430 Report #: [id number] The tricuspid valve is normal in structure. There is no tricuspid valve vegetation. Pulmonic Valve The pulmonary valve is normal in structure. Great Vessels The aortic root is normal in size. Pericardium There is no pericardial effusion. Left pleural effusion. <Conclusion> The left ventricle is normal size. There is normal left ventricular wall thickness. The left ventricular systolic function is normal. The left ventricular ejection fraction is within the normal range. LVEF is 55-60%. The right ventricle is normal size. Left atrium is mildly dilated. Mild aortic valve sclerosis. No aortic regurgitation is present. There is no aortic valvular stenosis. There is mitral annular calcification. The tricuspid valve is normal in structure. There is no pericardial effusion. There is normal LV segmental wall motion. There is no aortic valvular vegetation. There is no mitral valve vegetation. There is no tricuspid valve vegetation. <ELECTRONICALLY SIGNED> By: Sabas Yanez MD, [facility] 12/18/181429 1430 1430 Sabas Yanez MD, FACC /INF
[2018-12-18 15:54] VITALS: BP 137/74
[2018-12-18 19:30] VITALS: BP 146/64
[2018-12-19 09:00] VITALS: BP 168/84
[2018-12-19 10:51] LABS: HEMATOCRIT 24.2 % (37.0-47.0); MCH 29.5 pg (26.0-34.0); MCHC 33.1 g/dL (28.0-37.0); MCV 89.2 fL (80.0-100.0); MPV 8.4 fl. (7.2-11.1); RBC 2.71 mil/uL (4.20-5.00); RDW-CV 18.2 % (10.5-14.5); WBC 6.1 thou/uL (4.0-11.0)
[2018-12-19 11:09] LABS: ALBUMIN 1.6 g/dL (3.4-5.0); CALCIUM 8.7 mg/dL (8.5-10.1); CREATININE 0.5 mg/dL (0.6-1.3); MAGNESIUM 1.5 mg/dL (1.8-2.4); POTASSIUM 4.2 mmol/L (3.5-5.1); TOTAL BILIRUBIN 0.4 mg/dL (<0.1-1.0)
[2018-12-19 16:19] VITALS: BP 164/87
[2018-12-19 23:00] VITALS: BP 169/91
[2018-12-20 04:00] VITALS: BP 167/97
[2018-12-20 08:33] VITALS: BP 149/88
[2018-12-20 12:04] VITALS: BP 164/89
[2018-12-20 15:24] VITALS: BP 149/82
[2018-12-20 20:00] VITALS: BP 167/93
[2018-12-21 01:02] LABS: HEMATOCRIT 26.4 % (37.0-47.0); HEMOGLOBIN 8.9 gm/dL (12.0-15.0); MCH 29.7 pg (26.0-34.0); MCHC 33.5 g/dL (28.0-37.0); MCV 88.5 fL (80.0-100.0); MPV 8.3 fl. (7.2-11.1); RBC 2.98 mil/uL (4.20-5.00); RDW-CV 17.6 % (10.5-14.5); WBC 7.3 thou/uL (4.0-11.0)
[2018-12-21 01:14] LABS: ALBUMIN 1.7 g/dL (3.4-5.0); CALCIUM 8.6 mg/dL (8.5-10.1); CREATININE 0.6 mg/dL (0.6-1.3); MAGNESIUM 1.3 mg/dL (1.8-2.4); POTASSIUM 3.9 mmol/L (3.5-5.1); TOTAL BILIRUBIN 0.4 mg/dL (<0.1-1.0); TOTAL PROTEIN 5.5 g/dL (6.4-8.2)
[2018-12-21 08:00] VITALS: BP 155/82
[2018-12-21 15:28] VITALS: BP 149/74
[2018-12-21 20:00] VITALS: BP 137/59
[2018-12-22 05:58] LABS: HEMATOCRIT 24.3 % (37.0-47.0); HEMOGLOBIN 8.2 gm/dL (12.0-15.0); MCH 29.6 pg (26.0-34.0); MCHC 33.7 g/dL (28.0-37.0); MCV 87.9 fL (80.0-100.0); MPV 8.4 fl. (7.2-11.1); RBC 2.77 mil/uL (4.20-5.00); RDW-CV 17.2 % (10.5-14.5); WBC 6.5 thou/uL (4.0-11.0)
[2018-12-22 06:07] LABS: ALBUMIN 1.6 g/dL (3.4-5.0); CALCIUM 8.6 mg/dL (8.5-10.1); CREATININE 0.5 mg/dL (0.6-1.3); MAGNESIUM 1.5 mg/dL (1.8-2.4); POTASSIUM 3.7 mmol/L (3.5-5.1); TOTAL BILIRUBIN 0.2 mg/dL (<0.1-1.0); TOTAL PROTEIN 4.9 g/dL (6.4-8.2)
[2018-12-22 07:45] VITALS: BP 171/84
[2018-12-22 17:17] VITALS: BP 141/61
[2018-12-22 20:00] VITALS: BP 132/59
[2018-12-23 07:30] VITALS: BP 152/68
[2018-12-23 16:16] VITALS: BP 147/56
[2018-12-23 20:00] VITALS: BP 142/82
[2018-12-24 04:18] LABS: ALBUMIN 1.7 g/dL (3.4-5.0); CALCIUM 8.5 mg/dL (8.5-10.1); CREATININE 0.5 mg/dL (0.6-1.3); MAGNESIUM 1.2 mg/dL (1.8-2.4); TOTAL BILIRUBIN 0.2 mg/dL (<0.1-1.0); TOTAL PROTEIN 4.8 g/dL (6.4-8.2)
[2018-12-24 04:50] VITALS: BP 150/80
[2018-12-24 05:22] LABS: HEMOGLOBIN 7.3 gm/dL (12.0-15.0); MCH 29.4 pg (26.0-34.0); MCHC 33.1 g/dL (28.0-37.0); MCV 88.9 fL (80.0-100.0); MPV 8.6 fl. (7.2-11.1); RBC 2.47 mil/uL (4.20-5.00); RDW-CV 17.1 % (10.5-14.5); WBC 6.9 thou/uL (4.0-11.0)
[2018-12-24 07:30] VITALS: BP 167/93
[2018-12-24 12:40] LABS: MAGNESIUM 2.3 mg/dL (1.8-2.4); POTASSIUM 3.9 mmol/L (3.5-5.1)
[2018-12-24 17:03] VITALS: BP 155/81
[2018-12-24 20:00] VITALS: BP 130/64
[2018-12-25 08:00] VITALS: BP 138/72
--- NOTE | 2018-12-25 10:16 | EEG ---
[address] [address] EEG STUDY REPORT Name: ARIANANANDAYIMIALEX YATES Room: [address] IN M.R.#: [id number] Admission: 12/01/18 Attend Phys: Elaine Savage MD Discharge: Date of : 47 Report #: [id number] THIS REPORT FOR: //name// CC: Live Savage DATE OF SERVICE: 12/17/2018 This patient is being evaluated for seizures. EEG was done by placing the electrode by standard 10-20 system of electrode placement. Both referential and sequential montages were used for recording. Background activity in this EEG is about 7-8 Hz and 30 microvolt. It is a symmetrical activity. There are still periodic lateralizing epileptiform discharges present on the right side. The patient went to sleep that is associated with bilaterally symmetrical slow waves. IMPRESSION: The patient's EEG still demonstrate epileptiform activity arising from the right cerebral hemisphere. It is better than before, but still significant discharge is apparent. <ELECTRONICALLY SIGNED> By: Duncan Lui MD 12/25/18 1016 1612 [id number] Lui MD /nt
--- NOTE | 2018-12-25 10:16 | EEG ---
[address] [address] EEG STUDY REPORT Name: YIMI FULLER Room: [address] IN M.R.#: [id number] Admission: 12/01/18 Attend Phys: Elaine Savage MD Discharge: Date of : 47 Report #: [id number] THIS REPORT FOR: //name// CC: Live Savage EEG was done by placing the electrode by standard 10-20 system of electrode placement. Both referential and sequential montages were used for recording. Background activity in this patient's EEG is about 7-8 Hz and 30 microvolt. The patient went to sleep that is associated with bilateral slowing and few vertex sharp waves. 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 Some epileptiform activity in the frontal area may be still present. IMPRESSION: This patient's EEG demonstrates significant improvement in the epileptiform activity from the right cerebral hemisphere. Some epileptiform activity may be still present. Thank you very much for this referral. <ELECTRONICALLY SIGNED> By: Duncan Lui MD 12/25/18 1016 0829 [id number] Lui MD /nt
[2018-12-25] MEDS ORDERED: KEPPRA 500 MG500 M1 PO (14:11)
[2018-12-25] MEDS ORDERED: HYDROCODON-ACE1 EAC7 PO (14:11)
[2018-12-25] MEDS ORDERED: VIMPAT50 MG PO (14:11)
[2018-12-25] MEDS ORDERED: ACETAMINOPHEN325 M1 PO (14:11)
[2018-12-25] MEDS ORDERED: HUMALOG100 UNIT/1 SUBQ (14:11)
[2018-12-25] MEDS ORDERED: XANAX1 MG PO (14:11)
[2018-12-25 16:07] VITALS: BP 138/72
[2018-12-25 17:59] VITALS: BP 138/72
== END 2018-12-25 16:45 | DRG 871 ==
LOC: M.ERS 15:15 → M.ICU 16:50 → M.2W 16:50 → M.TBA-ER 16:50 → M.ICU 12-02 09:53 → M.2W 12-05 22:33 → M.ICU 12-05 22:33 → M.2W 12-14 11:19 → M.ORTHSURG 12-17 17:22
PROVIDERS: Internal Medicine; Internal Medicine Nephrology; Internal Medicine Pulmonary Disease; Nurse Practitioner Adult Health; Personal Emergency Response Attendant; Psychiatry & Neurology Neuromuscular Medicine; Specialist; ADMIT Internal Medicine
DX: A41.1 Sepsis due to other specified staphylococcus (principal); J96.02 Acute respiratory failure with hypercapnia; J18.9 Pneumonia, unspecified organism; E43 Unspecified severe protein-calorie malnutrition; J96.01 Acute respiratory failure with hypoxia; E87.1 Hypo-osmolality and hyponatremia; J93.9 Pneumothorax, unspecified; G93.40 Encephalopathy, unspecified; N39.0 Urinary tract infection, site not specified; K21.9 Gastro-esophageal reflux disease without esophagitis; J45.909 Unspecified asthma, uncomplicated; F32.9 Major depressive disorder, single episode, unspecified; F41.9 Anxiety disorder, unspecified; I25.10 Atherosclerotic heart disease of native coronary artery without angina pectoris; E03.9 Hypothyroidism, unspecified; Z96.652 Presence of left artificial knee joint; G89.29 Other chronic pain; R10.9 Unspecified abdominal pain; G40.909 Epilepsy, unspecified, not intractable, without status epilepticus; M79.7 Fibromyalgia; M40.209 Unspecified kyphosis, site unspecified; R13.10 Dysphagia, unspecified; F03.90 Unspecified dementia, unspecified severity, without behavioral disturbance, psychotic disturbance, mood disturbance, and anxiety; E11.65 Type 2 diabetes mellitus with hyperglycemia; K44.9 Diaphragmatic hernia without obstruction or gangrene; B96.89 Other specified bacterial agents as the cause of diseases classified elsewhere; D50.9 Iron deficiency anemia, unspecified; D63.8 Anemia in other chronic diseases classified elsewhere; Z87.442 Personal history of urinary calculi; Z85.43 Personal history of malignant neoplasm of ovary; Z80.0 Family history of malignant neoplasm of digestive organs; Z83.6 Family history of other diseases of the respiratory system; Z82.49 Family history of ischemic heart disease and other diseases of the circulatory system; Z90.49 Acquired absence of other specified parts of digestive tract; Z83.3 Family history of diabetes mellitus; Z86.14 Personal history of Methicillin resistant Staphylococcus aureus infection; Z88.2 Allergy status to sulfonamides; Z88.8 Allergy status to other drugs, medicaments and biological substances; Z91.041 Radiographic dye allergy status; I25.2 Old myocardial infarction; Z90.710 Acquired absence of both cervix and uterus; Z85.42 Personal history of malignant neoplasm of other parts of uterus; Z68.26 Body mass index [BMI] 26.0-26.9, adult; Z79.899 Other long term (current) drug therapy

== ENCOUNTER 2019-01-01 21:34 | Inpatient (IN) | payer MEDICARE, OTHER ==
[~2019-01-01] VITALS: Ht 172.7 cm; Wt 53.5 kg
--- NOTE | ~2019-01-01 | CON ---
[address] [address] CONSULTATION Name: YIMI FULLER Room: [address] IN M.R.#: [id number] Admission: 01/01/19 Attend Phys: Raghav Perez Discharge: Date of : 47 Report #: [id number] THIS REPORT FOR: //name// CC: Live Hinkle DATE OF SERVICE: 01/02/2019 REFERRING PHYSICIAN: Dr. Vazquez Camargo. REASON FOR CONSULTATION: 1. Anemia with associated hematemesis. 2. Scant hematemesis with associated chronic anemia -- evaluate for upper gastrointestinal tract sources for the same. 3. Chronic normocytic anemia, which has been longstanding with the patient having undergone both upper and lower endoscopy during the last hospital stay and had been nonrevealing -- evaluate for other sources of anemia. 4. Mild dementia. 5. History of remote ovarian cancer. 6. History of remote David shunt with reversal of the same. RECOMMENDATIONS: 1. Since the patient has had some hematemesis and has had recent gastrostomy tube placed by [facility], we will proceed with upper endoscopy tomorrow to evaluate for any ulceration, inflammation or any problem within the upper GI tract to explain why she had the hematemesis. 2. Hold off on repeat colonoscopy at this time since she just had one done and it only revealed diverticular disease. 3. We will check some additional laboratory test to evaluate her anemia and if she does have evidence for iron deficient anemia, she will need to have an EGD with placement of a small bowel capsule within the proximal small bowel due to her complaints of dysphagia. Depending on whether or not we can get this approved by the hospital, this could be done during the hospital stay or if not, she would have to get this done at [facility]'s GI lab because she is a [facility] resident. 4. In the interim, we will hold on her iron replacement at this point in time. We will proceed with upper endoscopy tomorrow and make further recommendations thereafter. HISTORY OF PRESENT ILLNESS: The patient is a pleasant 73-year-old white female with complex medical history who is admitted to the hospital because of diffuse abdominal pain associated with nausea, vomiting [place] [address] CONSULTATION Name: YIMI FULLER Room: [address] IN [facility].#: [id number] Admission: 01/01/19 Attend Phys: Raghav Perez Discharge: Date of : 47 Report #: [id number] patient is not the best of historians, but she does not appear to be in any extremis at this time. She states she has issues with swallowing and recently underwent a video swallow study during the last hospital stay, which revealed poor issues with oropharyngeal dysphagia for which she had a gastrostomy tube placement done by Interventional Radiology because of prior history of surgical intervention of her stomach. She has been getting tube feedings through this, but has also been eating, but it is unclear what she is taking at this time. It was recommended she be on thickened liquids and soft foods, but she cannot tell me what she is taking. She denies any complaints of any heartburn or indigestion. She does have diffuse abdominal pain mostly throughout and has had problem with chronic constipation. She is admitted to the hospital for further evaluation and treatment. ALLERGIES: Multiple and include BUTORPHANOL, PREGABALIN, ERGOLOID, FENTANYL, KETOROLAC, NALOXONE, CONTRAST DYE, DULERA, MUSHROOMS, NALBUPHINE, PHENOBARBITAL, PROCHLORPERAZINE, SUMATRIPTAN. MEDICATIONS: Reported include atorvastatin, polyethylene glycol, B12 with folic acid, trazodone, levothyroxine, carvedilol, donepezil, Carafate, metformin, lactulose, docusate sodium, pantoprazole twice daily, Cymbalta, ferrous sulfate, and Relafen. PAST MEDICAL AND SURGICAL HISTORY: Remarkable for hypertension, hypothyroidism, problem with dementia, chronic acid reflux, diabetes, chronic arthritis as well. She has history of fibromyalgia. She had previous tonsillectomy, appendectomy, history of remote ovarian cancer. She had history of remote David bypass surgery with revision of the same. She has had history of uterine cancer and hysterectomy. She has had problem with anxiety and depression, hypothyroidism. She has also had arthroscopic surgery on her knee, right shoulder surgery, left knee replacement, tib-fib fracture and left arm fracture. SOCIAL HISTORY: The patient does not smoke or drink. FAMILY HISTORY: Remarkable for cervical cancer in her mother, rectal cancer in her brother, diabetes, hypertension and lung disease. PHYSICAL EXAMINATION: GENERAL: Revealed an ill-appearing 73-year-old white female who is complaining of severe leg pain. CARDIOPULMONARY: Revealed a regular rate and rhythm. LUNGS: Clear. ABDOMEN: Soft. It was not distended. She does have a gastrostomy tube in place, which appears to be in good position. She is tender below the same. CT scan without any contrast only revealed postsurgical changes compared to previous cholecystectomy and the gastrostomy tube. [address] [address] CONSULTATION Name: YIMI FULLER Room: [address] IN [facility]#: [id number] Admission: 01/01/19 Attend Phys: Raghav Perez Discharge: Date of : 47 Report #: [id number] LABORATORY DATA: From yesterday revealed white count of 3.6, hemoglobin 7.2, platelet count 694,000, MCV is 85.7, RDW is 18.6. Comparing her hemoglobin over the last 2 months, since October, her hemoglobin has been at 7-9 gram range. She did receive a couple of units of blood during the last hospital stay. Her sodium is 140, potassium is 2.8, chloride 101, bicarbonate is 30. Her BUN is 6, creatinine 0.7. Total bilirubin 0.3, alkaline phosphatase 133, AST is 19, ALT 19, albumin is 2.5. Her most recent potassium is at 3.[address] scan of the abdomen and pelvis was reviewed. DISCUSSION: At the present time, the patient appears to be stable enough to undergo endoscopic evaluation. Proceed with same and make further recommendations thereafter. ADDENDUM I was also able to review the records from [facility] and the patient has not been using her feeding tube and instead, had been on a pureed diet with thickened liquids as of 12/25/2018. By: [id number] [id number] Miguel Abel DO /damian
--- NOTE | ~2019-01-01 | CON ---
[address] [address] CONSULTATION Name: YIMI FULLER Room: [address] IN M.R.#: [id number] Admission: 01/01/19 Attend Phys: Raghav Perez Discharge: Date of : 47 Report #: [id number] THIS REPORT FOR: //name// CC: Live Hinkle DATE OF SERVICE: 01/02/2019 HISTORY OF PRESENT ILLNESS: The patient is being seen in consultation at the request of Dr. Abel for evaluation of anemia, with the patient having chronic anemia plus history of recent bloody vomitus. Today, she is not a reliable historian. She carries a diagnosis of dementia, and she takes donepezil. 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 The patient had recently been discharged to a retirement facility, but there she developed bloody vomitus and was brought back to the Emergency Room and then admitted. She has been in the hospital at [facility] and had a G-tube placed because of swallowing difficulties, dysphagia and poor p.o. intake. It is not clear if she had any new abdominal pain, nausea, vomiting or fever before she was transferred back to the hospital. The patient said that she had had abdominal pain for 4 days prior to admission. Besides bloody vomitus, the patient reportedly had had gross hematuria recently. She denies bleeding from other sites, however. She had not had any recent fever, drenching sweats, but she had had rigors, she claimed. She had no recent change in her weight. PAST MEDICAL HISTORY: 4, para 4 (the patient said that she had one son and one daughter and could not reconcile the difference today during the encounter). She reportedly had a childhood hepatitis, had a myocardial infarction. She had had urinary tract infections, iron deficiency anemia since childhood, but she could not remember whether she had this during her adulthood. She also claimed to have a history of peptic ulcer disease, fibromyalgia, and other historians recorded lumbar vertebral fracture, left lower lobe pneumonia, laceration of the knee, NSTEMI, pulmonary granuloma, renal failure, seizure, chronic hyponatremia and colitis. There are notes in the computer that one historian also noted appendectomy, tonsillectomy, ovarian cancer in the , 1976 David bypass shunt and revision, hysterectomy with uterine cancer in 1983, asthma, depression, anxiety, hypothyroidism, left knee replacement, right shoulder surgery and fractures of her tibia, fibula and left arm. FAMILY HISTORY: No one in the family has a history of anemia [place] [address] CONSULTATION Name: YIMI FULLER Room: [address] IN [facility]#: [id number] Admission: 01/01/19 Attend Phys: Raghav Perez Discharge: Date of : 47 Report #: [id number] SOCIAL HISTORY: The patient said that she was . REVIEW OF SYSTEMS: Positive for headaches, but the patient claimed to have this because of "kids." She has had no recent visual changes, no sinus infections, no sores in the mouth or swallowing difficulties that she could recall (PEG tube reportedly placed because of this), but she has frequent heartburn. She typically has bowel movement once every other day and she said she self-catheterizes and has been doing this for the past 2 years. She is right handed and has arthralgias in many areas because of fibromyalgia. PHYSICAL EXAMINATION: GENERAL: Revealed a pleasant lady sitting partially upright in the bed. Part way through the encounter two nurses came in and stood by during the rest of the encounter. The patient did not hesitate to give an answer, but sometimes she admitted that she just could not remember what the answer was. HEENT: Pupils equal, she did have arcus senilis changes, extraocular movements were intact, there was no nystagmus and there was no periorbital edema. Nasal passages were not remarkable. Her oropharynx revealed an edentulous mouth. There were no oral ulcers and the buccal mucosa very healthy. She could open her mouth widely, I saw no tonsillar masses, there were no oral ulcers or masses and her tongue was normally papillated and protruded to midline on command. NECK: Carotid upstrokes were normal without thrills. She had no thyromegaly or thyroid nodules and there was no cervical lymphadenopathy. She had no supraclavicular, infraclavicular, axillary, or inguinal adenopathy. BACK: In the sitting position, lumbosacral area edema was examined and revealed no edema. She had no worrisome skin lesions or subcutaneous nodules on her back. LUNGS: She had no resting tachypnea, her cough was clear on command, but air movement sounds were diminished in all lung langston posteriorly. BREASTS: Not examined. HEART: Revealed normal rate and rhythm without murmur. ABDOMEN: Revealed no detectable hepatosplenomegaly. She exhibited signs of tenderness to palpation in the epigastric area and across the lower abdomen. The patient had gastric tube in place. EXTREMITIES: Lower extremities revealed abnormal response when I questioned her about light touch sensation in her toes. She had normal right foot dorsiflexion and plantar flexion, but weakened left foot dorsiflexion. She had normal left foot plantar flexion. Upper extremities were normal. From 01/01/2019, I reviewed consultation note by Dr. Abel. From 01/01/2019, I reviewed the history and physical by Dr. Davis. From 12/19/2018, chest x-ray revealed increased density both medial bases suggesting [place] [address] CONSULTATION Name: YIMI FULLER Room: [address] IN ..#: [id number] Admission: 01/01/19 Attend Phys: Raghav Perez Discharge: Date of : 47 Report #: [id number] From 01/01/2019, CT scan of the abdomen and pelvis without contrast revealed small right pleural effusion. She had dependent bibasilar atelectasis/pneumonitis right greater than left. There was no focal intra-abdominal process mass or ascites. MEDICAL DATA: From [facility], past records consistently show hypoalbuminemia dating back through 12/2018 and 11/2018 and earlier. She also had low prealbumin ever since 12/17/2018, though she has had chronic anemia with a hemoglobin below the lower limit of normal ever since 12/01/2018, and on virtually all other tests and occasions it was low back to 08/2013. Even before that she was anemic on most testing occasions. From admission, sodium 140, potassium 2.8, chloride 101, CO2 30, BUN 6, creatinine 0.7, lipase 173, total bilirubin 0.3. Calcium 8.5, alkaline phosphatase 133, ALT 19, albumin 2.5, total protein 5.6. Lactic acid 1.8. NT-proBNP 2179 picograms. From early 12/2018, the patient had low serum iron at 18 with a corresponding TIBC that was low at 232, there was also percent saturation that was low at 8. Ferritin that day was within the normal range at 77 ng/mL. Note that her previous TIBC on 11/03/2016 was low at 131. Soluble transferrin receptor was 2.4 in 03/2015 and on that day she also had normal serum folate and B12 levels. CBC on admission revealed white blood cell count of 3600 with 60% segmented neutrophils, 17.3% lymphocytes, 13.8% monocytes, 6.7% eosinophils, 2.2% basophils. IMPRESSION AND PLAN: The patient has chronic anemia as well as an acute bleeding episode probably from the G-tube. I will ask for certain blood studies to be drawn today including a soluble transferrin receptor. In her situation, it appears that she has some type of chronic inflammation that is dominant more so than iron deficiency. At this point in time, I would not recommend iron infusions. There is a small chance of an allergic reaction, but if the soluble transferrin receptor is normal, she would not be able to use intravenous iron anyway. By: [id number] Snyder MD /nt
[~2019-01-01 21:34] MED LIST changes: +ACETAMINOPHEN325 M1 PO; +HUMALOG100 UNIT/1 SUBQ; +KEPPRA 500 MG500 M1 PO; +PROBIOTIC1 EAC1 PO; +TRAMADOL 50 MG50 MG PO; +VIMPAT50 MG PO
[2019-01-01 21:38] VITALS: BP 134/55
[2019-01-01 22:07] LABS: ABSOLUTE BASOPHILS 0.1 thou/uL (0.0-0.2); ABSOLUTE EOSINOPHILS 0.2 thou/uL (0.0-0.7); ABSOLUTE LYMPHOCYTES 0.6 thou/uL (0.8-5.3); ABSOLUTE MONOCYTES 0.5 thou/uL (0.0-1.2); ABSOLUTE NEUTROPHILS 2.2 thou/uL (1.6-8.1); BASOPHILS 2.2 %; EOSINOPHILS 6.7 %; HEMATOCRIT 22.2 % (37.0-47.0); HEMOGLOBIN 7.2 gm/dL (12.0-15.0); LYMPHOCYTES 17.3 %; MCH 27.5 pg (26.0-34.0); MCHC 32.2 g/dL (28.0-37.0); MCV 85.7 fL (80.0-100.0); MONOCYTES 13.8 %; MPV 6.6 fl. (7.2-11.1); NUCLEATED RBCS 0 /100WBC; PLATELET COUNT* 694 thou/uL (150-400); RDW-CV 18.6 % (10.5-14.5); WBC 3.6 thou/uL (4.0-11.0)
[2019-01-01 22:22] LABS: APTT 28.2 Seconds (25.0-31.3); INR 1.1; PROTIME 11.3 Seconds (9.20-11.50)
[2019-01-01 22:24] LABS: ALBUMIN 2.5 g/dL (3.4-5.0); ALKALINE PHOSPHATASE 133 U/L (46-116); ANION GAP 9 mmol/L (7-16); BUN 6 mg/dL (7-18); CALCIUM 8.5 mg/dL (8.5-10.1); CHLORIDE 101 mmol/L (98-107); CO2 30 mmol/L (21-32); CREATININE 0.7 mg/dL (0.6-1.3); GLUCOSE 105 mg/dL (70-99); NT-PRO BRAIN NAT PEPTIDE 2179 pg/mL (<300); POTASSIUM 2.8 mmol/L (3.5-5.1); SGOT 19 U/L (15-37); SGPT 19 U/L (30-65); SODIUM 140 mmol/L (136-145); TOTAL BILIRUBIN 0.3 mg/dL (<0.1-1.0); TOTAL PROTEIN 5.6 g/dL (6.4-8.2); TROPONIN-I LEVEL <0.06 ng/mL (<0.06)
[2019-01-01 22:36] LABS: URINE BILIRUBIN NEGATIVE (Negative); URINE BLOOD NEGATIVE (Negative); URINE CLARITY CLEAR; URINE COLOR YELLOW; URINE GLUCOSE-RANDOM NEGATIVE (Negative); URINE KETONES NEGATIVE (Negative); URINE LEUKOCYTES-REFLEX NEGATIVE (Negative); URINE NITRITE-REFLEX NEGATIVE (Negative); URINE PROTEIN NEGATIVE (Negative); URINE UROBILINOGEN 0.2 E.U./dl (0.2-1.0)
--- NOTE | 2019-01-01 23:40 | NUR ---
PT GIVEN WARM BLANKETS
[2019-01-02] VITALS (7 sets, daily range): BP systolic 126–170; BP diastolic 48–84
--- NOTE | 2019-01-02 | NUR ---
WARM BLANKET PROVIDED
--- NOTE | 2019-01-02 01:21 | NUR ---
JULI ([facility]) [phone]
--- NOTE | 2019-01-02 01:59 | NUR ---
PT RECEIVED FROM ED AT [facility]. SAT MAINTAINED IN RA. ALERT AND ORIENTED X3 AND FORGETFUL. CALL LIGHT WITHIN REACH AND BED IN LOW POSITION. C/O PAIN, MEDICATION GIVEN PER EMAR.
--- NOTE | 2019-01-02 11:11 | EKG ---
[place] [address] ELECTROCARDIOGRAM REPORT Name: YIMI FULLER Room: [address] ADM IN M.R.#: [id number] Admission: 01/01/19 Attend Phys: Raghav Perez Discharge: Date of : 47 Report #: [id number] THIS REPORT FOR: //name// [facility] ED Test Date: 2019-01-01 Test Time: 22:32:18 Pat Name: YIMI FULLER Department: Room: [facility] Gender: F Marketing Editor: GERALD : 1945 Requested By: Maverick Mandujano Order Number: [id number] MD: Indra Jones Measurements Intervals [place] Rate: 90 P: 89 ID: [id number] QRS: -43 QRSD: 132 T: 155 QT: 384 QTc: 470 Interpretive Statements Sinus rhythm LEFT VENTRICULAR HYPERTROPHY with repolarization Artifact in lead(s) I,II,III,aVR,aVL,aVF Compared to ECG 12/08/2018 11:29:49 no change Electronically Signed On 01-02-2019 11:11:24 CDT by Indra Jones [email or web address] <ELECTRONICALLY SIGNED> By: Indra Jones MD, [facility] 01/02/19 1111 31 31 Indra Jones MD, [facility] /EPI
--- NOTE | 2019-01-02 11:28 | NUR ---
MET WITH PT AND SPOUSE TO DISCUSS HOME SITUATION/DC PLANNING. PT KNOWN TO CM FROM PREVIOUS STAY, DC'D ON 12/25 TO SNF AT [facility]. PT PLANS TO RET[place] PRIOR TO PREVIOUS HOSPITAL STAY PT LIVED WITH SPOUSE, USED WALKER/WC OR CANE. SHE HAD PEG INSERTED LAST ADMIT, REPORTS HAVING ABD PAIN PROMPTING RETURN TO HOSPITAL. COPY OF OUTSIDE DNR AND DPOA ON CHART. WILL FOLLOW [facility] [phone]
--- NOTE | 2019-01-02 20:13 | NUR ---
PT ALERT TO SELF ONLY, ABLE TO USE CALL LIGHT AND MAKE NEEDS KNOWN. FALL PRECAUTIONS IN PLACE, VSS, MEDIA MARKETING MANAGER TRACING SINUS RHYTHM. PT PULLED EJ OUT IN AM, REPLACED WITH PERIPHERAL LINE IN RIGHT AC. PERIPHERAL LINE INFILTRATED REQUIRING ANOTHER LINE BE PLACED USING ULTRASOUND. PT TO HAVE EGD IN AM, CONSENT SIGNED AND PT EDUCATED WILL BE NPO AFTER MIDNIGHT.
[2019-01-02 20:54] LABS: ABSOLUTE BASOPHILS 0.1 thou/uL (0.0-0.2); ABSOLUTE EOSINOPHILS 0.2 thou/uL (0.0-0.7); ABSOLUTE LYMPHOCYTES 0.7 thou/uL (0.8-5.3); ABSOLUTE MONOCYTES 0.6 thou/uL (0.0-1.2); ABSOLUTE NEUTROPHILS 3.4 thou/uL (1.6-8.1); BASOPHILS 2.9 %; EOSINOPHILS 3.9 %; HEMATOCRIT 22.9 % (37.0-47.0); HEMOGLOBIN 7.5 gm/dL (12.0-15.0); LYMPHOCYTES 14.7 %; MCH 27.9 pg (26.0-34.0); MCHC 32.7 g/dL (28.0-37.0); MCV 85.2 fL (80.0-100.0); MONOCYTES 11.7 %; MPV 6.9 fl. (7.2-11.1); NUCLEATED RBCS 0 /100WBC; PLATELET COUNT* 723 thou/uL (150-400); POLYS 66.8 %; RBC 2.68 mil/uL (4.20-5.00); RDW-CV 18.1 % (10.5-14.5); WBC 5.1 thou/uL (4.0-11.0)
[2019-01-02 21:04] LABS: CALCIUM 8.5 mg/dL (8.5-10.1); CREATININE 0.6 mg/dL (0.6-1.3)
[2019-01-02 21:26] LABS: POTASSIUM 2.9 mmol/L (3.5-5.1)
[2019-01-03] VITALS: BP 120/84
[2019-01-03 04:00] VITALS: BP 110/53
[2019-01-03 04:41] LABS: ABSOLUTE BASOPHILS 0.1 thou/uL (0.0-0.2); ABSOLUTE EOSINOPHILS 0.3 thou/uL (0.0-0.7); ABSOLUTE LYMPHOCYTES 0.7 thou/uL (0.8-5.3); ABSOLUTE MONOCYTES 0.5 thou/uL (0.0-1.2); ABSOLUTE NEUTROPHILS 1.9 thou/uL (1.6-8.1); BASOPHILS 2.1 %; EOSINOPHILS 7.1 %; HEMATOCRIT 21.7 % (37.0-47.0); HEMOGLOBIN 7.1 gm/dL (12.0-15.0); MCH 27.9 pg (26.0-34.0); MCHC 32.7 g/dL (28.0-37.0); MCV 85.4 fL (80.0-100.0); MONOCYTES 15.1 %; MPV 6.6 fl. (7.2-11.1); NUCLEATED RBCS 0 /100WBC; POLYS 54.7 %; RBC 2.53 mil/uL (4.20-5.00); RDW-CV 18.5 % (10.5-14.5); WBC 3.6 thou/uL (4.0-11.0)
[2019-01-03 04:45] LABS: PLATELET COUNT* 608 thou/uL (150-400)
--- NOTE | 2019-01-03 05:00 | NUR ---
PT CARE ASSUMED AT 1930. ALERT AND ORIENTED X2. PT IS IMPULSIVE AND UNCOPERATIVE. CALL LIGHT WITHIN REACH AND BED IN LOW POSITION. SAT MAINTAINED IN 2L NC. PT IS INCONTINENT OF BOWEL AND BLADDER. CALLS FOR PAIN MEDICATION FREQUENTLY. HOURLY ROUNDING DONE FOR PT SAFTEY.
[2019-01-03 05:14] LABS: CALCIUM 8.4 mg/dL (8.5-10.1); CREATININE 0.5 mg/dL (0.6-1.3)
[2019-01-03 05:21] LABS: POTASSIUM 5.7 mmol/L (3.5-5.1)
[2019-01-03 06:01] LABS: ESR (SEDRATE) 13 mm/hr (0-30)
[2019-01-03 08:00] VITALS: BP 137/53
--- NOTE | 2019-01-03 08:00 | NUR ---
ASSUMED PT CARE AT 0700, PT LYING IN BED, FALL PRECAUTIONS IN PLACE, AT BEDSIDE. ORIENTED TO SELF ONLY, UP WITH ASSIST X1. PT REMAINS NPO FOR EGD THIS AM. CONT TO HAVE MULTIPLE LOOSE BM'S D/T DOSE OF MAG CITRATE YESTERDAY. AM MEDS HELD FOR PROCEDURE. PT TO HAVE PUREED DIET POST PROCEDURE. WILL CONT POC.
[2019-01-03 12:00] VITALS: BP 146/72
[2019-01-03 16:00] VITALS: BP 147/63; BP 156/79
--- NOTE | 2019-01-03 19:28 | NUR ---
PT SITTING UP IN BED, GOALS OF SAFETY AND MEDICATIONS COMPLETED. EGD THIS AM SHOWED SMALL SEGMENT OF BARRETTES ESOPHAGUS AND HIATAL HERNIA, PT TOLERATED PROCEDURE WELL. NO C/O NAUSEA, PRN PAIN MEDS GIVEN, VSS, HOURLY ROUNDING COMPLETED. PT RIPPED OUT EJ FOR THIRD TIME, PRESSURE PLACED, BLEEDING STOPPED.
[2019-01-03 20:20] VITALS: BP 156/88
[2019-01-04] VITALS: BP 128/62
[2019-01-04 04:00] VITALS: BP 147/57
[2019-01-04 04:35] LABS: ABSOLUTE BASOPHILS 0.1 thou/uL (0.0-0.2); ABSOLUTE EOSINOPHILS 0.2 thou/uL (0.0-0.7); ABSOLUTE LYMPHOCYTES 0.8 thou/uL (0.8-5.3); ABSOLUTE MONOCYTES 0.6 thou/uL (0.0-1.2); ABSOLUTE NEUTROPHILS 2.9 thou/uL (1.6-8.1); BASOPHILS 1.4 %; EOSINOPHILS 4.9 %; HEMATOCRIT 21.8 % (37.0-47.0); HEMOGLOBIN 7.1 gm/dL (12.0-15.0); LYMPHOCYTES 16.9 %; MCHC 32.4 g/dL (28.0-37.0); MCV 86.3 fL (80.0-100.0); MONOCYTES 13.2 %; MPV 6.8 fl. (7.2-11.1); NUCLEATED RBCS 0 /100WBC; PLATELET COUNT* 597 thou/uL (150-400); POLYS 63.6 %; RBC 2.52 mil/uL (4.20-5.00); RDW-CV 18.6 % (10.5-14.5); WBC 4.5 thou/uL (4.0-11.0)
[2019-01-04 04:53] LABS: CREATININE 0.6 mg/dL (0.6-1.3); POTASSIUM 4.4 mmol/L (3.5-5.1)
--- NOTE | 2019-01-04 05:07 | NUR ---
PT CARE ASSUMED AT 1930. SAT MAINTAINED IN RA. PT IS CONFUSED, IMPULSIVE AND UNCOPERATIVE. CALL LIGHT WITHIN REACH AND BED IN LOW POSIITON. INCONTINENT. C/O PAIN, MEDICATION GIVEN PER EMAR. HOURLY ROUNDING DONE FOR PT SAFETY.
[2019-01-04 08:00] VITALS: BP 166/73
--- NOTE | 2019-01-04 08:00 | NUR ---
ASSUMED PT CARE AT 0700, PT LYING IN BED, FALL PRECAUTIONS IN PLACE. PT REMAINS ALERT TO SELF ONLY, INAPPROPRIATE AND UNCOOPERATIVE. CONT TO DIG IN GENITALIA DISPITE RECURRENT EDUCATION, INCONT B&B. VSS, RA, APPELLATE COURT JUDGE TRACING SINUS RHYTHM. PT GOAL INCLUDE MAINTAIN SAFETY, MEDICATIONS, AND POSSIBLE DC BACK TO FACILITY. WILL CONT POC.
[2019-01-04 12:00] VITALS: BP 158/130
--- NOTE | 2019-01-04 12:00 | NUR ---
ORDERS NOTED FOR DC BACK TO SNF. PT TO RETURN TO [facility]. CALLED AND FAXED UPDATED CLINICAL AND ORDERS TO [facility], THEY WILL ACCEPT BACK TODAY AND SHE ARRANGED W/C VAN FOR 3PM. CALL TO NOTIFY SPOUSE, NO ANSWER. CALL TO NOTIFY ANTONETTE/GENIA. HE STATED THEY HAD A MEETING AT [facility] TODAY ANYWAY, WAS PLEASED PT RETURNING. CHART COPIED. RN HAS NUMBER TO CALL REPORT
[2019-01-04] MEDS ORDERED: AUGMENTIN 875-1 EACH PO (12:34)
[2019-01-04] MEDS ORDERED: XANAX1 MG PO (13:49)
[2019-01-04] MEDS ORDERED: VIMPAT1 EACH PO (13:54)
[2019-01-04 13:55] VITALS: BP 158/130
--- NOTE | 2019-01-04 15:48 | NUR ---
PT DISCHARGED BACK TO NURSING FACILITY VIA WHEELCHAIR IN TRANSPORTATION VAN. REPORT CALLED INTO SNF NURSE, EDUCATED ON ALL DISCHARGE INSTRUCTIONS. HOURLY ROUNDING COMPLETED. MAINTAINED SAFETY AND MEDICATIONS.
--- NOTE | 2019-01-05 08:59 | NUR ---
P.T. ORDERS RECEIVED 01/02/19. EVAL ATTEMPTS MADE 01/02 AND 01/04. PT DISCHARGED 01/04 PRIOR TO COMPLETION OF P.T. EVAL.
== END 2019-01-04 15:22 | DRG 380 ==
LOC: M.ERS 21:34 → M.TBA-ER 23:16 → M.2W 23:16 → M.TBA-ER 01-02 00:35 → M.2W 01-02 12:00
PROVIDERS: Family Medicine; Internal Medicine; Internal Medicine Gastroenterology; ADMIT Internal Medicine
PROC: 0DJ08ZZ Inspection of Upper Intestinal Tract, Via Natural or Artificial Opening Endoscopic (ICD-10-PCS; principal; 2019-01-03)
DX: K22.70 Barrett's esophagus without dysplasia (principal); J69.0 Pneumonitis due to inhalation of food and vomit; G92 Toxic encephalopathy; E43 Unspecified severe protein-calorie malnutrition; D62 Acute posthemorrhagic anemia; Z68.1 Body mass index [BMI] 19.9 or less, adult; K92.2 Gastrointestinal hemorrhage, unspecified; E11.9 Type 2 diabetes mellitus without complications; K21.9 Gastro-esophageal reflux disease without esophagitis; M79.7 Fibromyalgia; J45.909 Unspecified asthma, uncomplicated; F03.90 Unspecified dementia, unspecified severity, without behavioral disturbance, psychotic disturbance, mood disturbance, and anxiety; F32.9 Major depressive disorder, single episode, unspecified; F41.9 Anxiety disorder, unspecified; I25.10 Atherosclerotic heart disease of native coronary artery without angina pectoris; M19.90 Unspecified osteoarthritis, unspecified site; G40.909 Epilepsy, unspecified, not intractable, without status epilepticus; E87.6 Hypokalemia; E03.9 Hypothyroidism, unspecified; Z96.652 Presence of left artificial knee joint; K44.9 Diaphragmatic hernia without obstruction or gangrene; Z93.1 Gastrostomy status; Z87.81 Personal history of (healed) traumatic fracture; Z85.43 Personal history of malignant neoplasm of ovary; Z85.42 Personal history of malignant neoplasm of other parts of uterus; Z87.442 Personal history of urinary calculi; Z90.49 Acquired absence of other specified parts of digestive tract; Z90.710 Acquired absence of both cervix and uterus; Z79.4 Long term (current) use of insulin; Z79.84 Long term (current) use of oral hypoglycemic drugs; Z79.899 Other long term (current) drug therapy; Z88.8 Allergy status to other drugs, medicaments and biological substances; Z88.1 Allergy status to other antibiotic agents; Z91.041 Radiographic dye allergy status; Z80.49 Family history of malignant neoplasm of other genital organs; Z80.0 Family history of malignant neoplasm of digestive organs; Z83.3 Family history of diabetes mellitus; Z82.49 Family history of ischemic heart disease and other diseases of the circulatory system; Z83.6 Family history of other diseases of the respiratory system

== ENCOUNTER → 2019-01-06 | Outpatient (CLI) | payer MEDICARE, OTHER ==
[~2019-01-06] MED LIST changes: +AUGMENTIN 875-1 EACH PO; +DEPAKOTE ER500 MG PO; +GLUCOTROL5 MG PO; +MEGESTROL400 MG/11 PO; +MILK OF MA400 MG/5 M PO; +OSELB75 PO; +SENNA PLUS TAB1 EACH PO; +SEROQUEL 50 MG50 MG PO; +VIMPAT1 EACH PO; +ZOFRAN ODT4 MG PO
[2019-01-06 14:19] VITALS: BP 126/46; BP 151/64; BP 151/65
[2019-01-06 16:25] VITALS: BP 122/89; BP 151/65; BP 153/80; BP 157/73; BP 159/91
--- NOTE | 2019-01-06 16:53 | NUR ---
ARRIVED PER WHEELCHAIR. 2 ASSIST TO TRANSFER TO BED. TYPE AND CROSS DRAWN FROM IV START. PT REMOVED IV SELF. NEW IV STARTED AND WAS ALSO REMOVED BY PT PRIOR TO BLOOD START. 3RD IV START TO LEFT FA JUST PRIOR TO BLOOD START. 1:1 SITTER INITIATED PER STAFF. HERE SHORTLY AFTER BLOOD START AND REMAINES AT BEDSIDE. 1ST UNIT OF BLOOD COMPLETED AND TOLERATED WELL. 2ND UNIT STARTED AND RUNNNING WELL. PT TRANSFERED TO PACU TO FINISH TRANSFUSION RELATED TO INFUSION CLINIC HOURS.
--- NOTE | 2019-01-06 17:55 | NUR ---
Report given to Armida in Pre-op for completion of blood transfusion. Pt had c/o pain several times during her stay. Dr. Bolton notified and orders given for pain meds from home meds. Xanax also ordered and given for patients anxiety and agitation. Pt ate multiple meals through out the day. Had 2 episodes of vomiting and stated that this is normal for her. Has been incont x3.
--- NOTE | 2019-01-06 18:45 | NUR ---
PT. TOLERATED PRBC UNIT #2. DONE AT 1825. VSS AT 15' AFTER STABLE. IV WAS REMOVED. PT'S BRIEF DRY. PT. ASSISTED TO W/C WITH ASSIST OF 2, UNSTEADY GAIT. LEFT VIA W/C WITH Morro BURR RN WHO TOOL PT. TO MAIN ENTRANCE TO MEET THE WHEELCHAIR VAN FOR [facility] ([facility]).
== END ==
LOC: M.INFUS 04:20
DX: D64.9 Anemia, unspecified (principal)

== ENCOUNTER 2019-01-20 01:56 | Observation (INO) | payer MEDICARE, OTHER ==
[~2019-01-20] VITALS: Ht 172.7 cm; Wt 51.7 kg
[~2019-01-20 01:56] MED LIST changes: -DEPAKOTE ER500 MG PO; -GLUCOTROL5 MG PO; -MEGESTROL400 MG/11 PO; -MILK OF MA400 MG/5 M PO; -OSELB75 PO; -SENNA PLUS TAB1 EACH PO; -SEROQUEL 50 MG50 MG PO; -ZOFRAN ODT4 MG PO
[2019-01-20 02:16] VITALS: BP 145/62
[2019-01-20 02:34] LABS: ABSOLUTE BASOPHILS 0.1 thou/uL (0.0-0.2); ABSOLUTE LYMPHOCYTES 0.9 thou/uL (0.8-5.3); ABSOLUTE MONOCYTES 1.1 thou/uL (0.0-1.2); ABSOLUTE NEUTROPHILS 6.2 thou/uL (1.6-8.1); BASOPHILS 1.1 %; EOSINOPHILS 0.5 %; HEMATOCRIT 37.5 % (37.0-47.0); LYMPHOCYTES 11.3 %; MCHC 32.1 g/dL (28.0-37.0); MCV 87.3 fL (80.0-100.0); MONOCYTES 12.8 %; MPV 6.5 fl. (7.2-11.1); NUCLEATED RBCS 0 /100WBC; PLATELET COUNT* 388 thou/uL (150-400); POLYS 74.3 %; RBC 4.29 mil/uL (4.20-5.00); RDW-CV 18.7 % (10.5-14.5); WBC 8.3 thou/uL (4.0-11.0)
[2019-01-20 02:53] LABS: INR 1.1; PROTIME 10.8 Seconds (9.20-11.50)
[2019-01-20 03:14] LABS: ALBUMIN 2.6 g/dL (3.4-5.0); ALKALINE PHOSPHATASE 89 U/L (46-116); ANION GAP 10 mmol/L (7-16); BUN 13 mg/dL (7-18); CALCIUM 8.7 mg/dL (8.5-10.1); CHLORIDE 97 mmol/L (98-107); CO2 25 mmol/L (21-32); CREATININE 0.6 mg/dL (0.6-1.3); GLUCOSE 109 mg/dL (70-99); LIPASE 173 U/L (73-393); NT-PRO BRAIN NAT PEPTIDE 3748 pg/mL (<300); POTASSIUM 3.9 mmol/L (3.5-5.1); SGOT 22 U/L (15-37); SGPT 14 U/L (30-65); SODIUM 132 mmol/L (136-145); TOTAL BILIRUBIN 0.2 mg/dL (<0.1-1.0); TOTAL PROTEIN 6.2 g/dL (6.4-8.2); TROPONIN-I LEVEL <0.06 ng/mL (<0.06)
[2019-01-20 03:21] LABS: INFLUENZA B ANTIGEN None Detected (None Detect)
[2019-01-20 04:23] VITALS: BP 152/69
[2019-01-20 08:00] VITALS: BP 135/51
[2019-01-20 09:01] LABS: CALCIUM 9.1 mg/dL (8.5-10.1); CREATININE 0.7 mg/dL (0.6-1.3); POTASSIUM 3.6 mmol/L (3.5-5.1)
[2019-01-20 12:40] VITALS: BP 128/75
--- NOTE | 2019-01-20 14:18 | EKG ---
[place] [address] ELECTROCARDIOGRAM REPORT Name: YIMI FULLER Room: [address] ADM IN M.R.#: [id number] Admission: 01/20/19 Attend Phys: Keith Davis MD Discharge: Date of : 47 Report #: [id number] THIS REPORT FOR: //name// [facility] ED Test Date: 2019-01-20 Test Time: 02:42:30 Pat Name: YIMI FULLER Department: Room: [facility] Gender: F Production Designer: Christen SWEENEY : 1945 Requested By: Maverick Mandujano Order Number: [id number] MD: Sabas Yanez Measurements Intervals [place] Rate: 104 P: 76 [place]: 145 QRS: -50 QRSD: 115 T: 122 QT: 308 QTc: 405 Interpretive Statements Sinus tachycardia Ventricular bigeminy Incomplete left bundle branch block LVH with secondary repolarization abnormality Anterior Q waves, possibly due to LVH Baseline wander in lead(s) V1,V6 Compared to ECG 01/01/2019 22:32:18 Ventricular premature complex(es) now present Left bundle-branch block now present Early repolarization now present Q waves now present Electronically Signed On 01-20-2019 14:18:39 CDT by Sabas Yanez [email or web address] <ELECTRONICALLY SIGNED> By: Sabas Yanez MD, [facility] 01/20/19 1418 1 1 Sabas Yanez MD, [facility] /EPI
[2019-01-20 19:51] VITALS: BP 135/56
[2019-01-20 20:28] LABS: URINE BILIRUBIN NEGATIVE (Negative); URINE BLOOD NEGATIVE (Negative); URINE CLARITY CLEAR; URINE COLOR YELLOW; URINE GLUCOSE-RANDOM 3+ (Negative); URINE KETONES NEGATIVE (Negative); URINE LEUKOCYTES-REFLEX 1+ (Negative); URINE NITRITE-REFLEX NEGATIVE (Negative); URINE PROTEIN TRACE (Negative); URINE SPECIFIC GRAVITY 1.015 (1.005-1.030); URINE UROBILINOGEN 0.2 E.U./dl (0.2-1.0)
[2019-01-20 20:39] LABS: MUCUS None Seen strn/LPF (None Seen); SQUAMOUS 4-10 Moderate /LPF (0-3)
[2019-01-20 20:43] LABS: CASTS None Seen /LPF (None Seen); CRYSTALS None Seen /LPF (None Seen); URINE RBC 0-2 Rare /HPF (0-2)
[2019-01-21 04:30] LABS: HEMATOCRIT 29.9 % (37.0-47.0); MCH 28.2 pg (26.0-34.0); MCHC 32.9 g/dL (28.0-37.0); MCV 85.7 fL (80.0-100.0); MPV 6.6 fl. (7.2-11.1); RBC 3.49 mil/uL (4.20-5.00); RDW-CV 18.3 % (10.5-14.5); WBC 8.2 thou/uL (4.0-11.0)
[2019-01-21 04:44] LABS: CALCIUM 8.8 mg/dL (8.5-10.1); CREATININE 0.6 mg/dL (0.6-1.3); POTASSIUM 3.8 mmol/L (3.5-5.1)
[2019-01-21 04:58] LABS: HEMOGLOBIN 9.8 gm/dL (12.0-15.0)
[2019-01-21] MEDS ORDERED: OSELB75 PO (07:34)
[2019-01-21] MEDS ORDERED: PROTONIX40 M1 PO (07:34)
[2019-01-21] MEDS ORDERED: CARAFATE 1 GM TA1 G1 PO (07:34)
[2019-01-21] MEDS ORDERED: HYDROCODON-ACE1 EAC7 PO (07:34)
[2019-01-21] MEDS ORDERED: GLUCOTROL5 MG PO (07:34)
[2019-01-21] MEDS ORDERED: KEPPRA 500 MG500 M1 PO (07:34)
[2019-01-21] MEDS ORDERED: DEPAKOTE ER500 MG PO (07:34)
[2019-01-21] MEDS ORDERED: ZOFRAN ODT4 MG PO (07:37)
[2019-01-21 08:00] VITALS: BP 138/68
[2019-01-21 10:06] VITALS: BP 135/56
[2019-01-21 12:53] LABS: HEMATOCRIT 30.9 % (37.0-47.0); HEMOGLOBIN 9.8 gm/dL (12.0-15.0)
[2019-01-21 14:57] VITALS: BP 136/68
[2019-01-21] MEDS ORDERED: MEGESTROL400 MG/11 PO ×2 (15:31→15:56)
== END 2019-01-21 16:00 | disposition home or self-care (01) ==
LOC: M.ERS 01:56 → M.TBA-ER 03:09 → M.ICU 03:09
PROVIDERS: Family Medicine; Internal Medicine; ADMIT Internal Medicine
DX: J09.X2 Influenza due to identified novel influenza A virus with other respiratory manifestations (principal); B34.9 Viral infection, unspecified; E86.9 Volume depletion, unspecified; R11.2 Nausea with vomiting, unspecified; F03.91 Unspecified dementia, unspecified severity, with behavioral disturbance; F32.9 Major depressive disorder, single episode, unspecified; F41.1 Generalized anxiety disorder; K22.719 Barrett's esophagus with dysplasia, unspecified; I25.10 Atherosclerotic heart disease of native coronary artery without angina pectoris; M79.7 Fibromyalgia; R62.7 Adult failure to thrive; I25.2 Old myocardial infarction; E03.9 Hypothyroidism, unspecified; E11.9 Type 2 diabetes mellitus without complications; K21.9 Gastro-esophageal reflux disease without esophagitis; Z87.19 Personal history of other diseases of the digestive system; Z90.89 Acquired absence of other organs; Z90.710 Acquired absence of both cervix and uterus; Z98.890 Other specified postprocedural states; Z86.69 Personal history of other diseases of the nervous system and sense organs; Z88.8 Allergy status to other drugs, medicaments and biological substances

== ENCOUNTER 2019-01-23 13:26 | Inpatient (IN) | payer MEDICARE, OTHER ==
[~2019-01-23] VITALS: Ht 172.7 cm; Wt 61.7 kg
[~2019-01-23 13:26] MED LIST changes: +DEPAKOTE ER500 MG PO; +GLUCOTROL5 MG PO; +MEGESTROL400 MG/11 PO; +OSELB75 PO; +ZOFRAN ODT4 MG PO
[2019-01-23 13:41] VITALS: BP 114/81
[2019-01-23 14:41] LABS: ABSOLUTE LYMPHOCYTES 0.6 thou/uL (0.8-5.3); ABSOLUTE MONOCYTES 0.4 thou/uL (0.0-1.2); ABSOLUTE NEUTROPHILS 4.1 thou/uL (1.6-8.1); BASOPHILS 0.5 %; EOSINOPHILS 0.6 %; HEMATOCRIT 36.1 % (37.0-47.0); HEMOGLOBIN 11.7 gm/dL (12.0-15.0); LYMPHOCYTES 12.2 %; MCH 27.7 pg (26.0-34.0); MCHC 32.5 g/dL (28.0-37.0); MCV 85.3 fL (80.0-100.0); MONOCYTES 8.2 %; MPV 6.4 fl. (7.2-11.1); NUCLEATED RBCS 0 /100WBC; PLATELET COUNT* 464 thou/uL (150-400); POLYS 78.5 %; RBC 4.24 mil/uL (4.20-5.00); WBC 5.2 thou/uL (4.0-11.0)
[2019-01-23 14:50] LABS: APTT 27.2 Seconds (25.0-31.3); INR 0.9; PROTIME 9.7 Seconds (9.20-11.50)
[2019-01-23 14:59] LABS: ANION GAP 9 mmol/L (7-16); BUN 13 mg/dL (7-18); CALCIUM 9.5 mg/dL (8.5-10.1); CHLORIDE 100 mmol/L (98-107); CO2 27 mmol/L (21-32); CREATININE 0.5 mg/dL (0.6-1.3); GLUCOSE 68 mg/dL (70-99); POTASSIUM 3.9 mmol/L (3.5-5.1); SODIUM 136 mmol/L (136-145); TROPONIN-I LEVEL <0.06 ng/mL (<0.06)
[2019-01-23 15:03] LABS: ALBUMIN 2.9 g/dL (3.4-5.0); ALKALINE PHOSPHATASE 99 U/L (46-116); CK-MB MASS 0.6 ng/mL (<0.5-3.6); NT-PRO BRAIN NAT PEPTIDE 6580 pg/mL (<300); SGOT 19 U/L (15-37); SGPT 18 U/L (30-65); TOTAL BILIRUBIN 0.3 mg/dL (<0.1-1.0); TOTAL PROTEIN 7.4 g/dL (6.4-8.2)
[2019-01-23 15:33] LABS: URINE BILIRUBIN NEGATIVE (Negative); URINE BLOOD NEGATIVE (Negative); URINE CLARITY SL CLOUDY; URINE COLOR YELLOW; URINE GLUCOSE-RANDOM NEGATIVE (Negative); URINE KETONES NEGATIVE (Negative); URINE LEUKOCYTES-REFLEX TRACE (Negative); URINE NITRITE-REFLEX NEGATIVE (Negative); URINE PROTEIN 1+ (Negative); URINE UROBILINOGEN 0.2 E.U./dl (0.2-1.0)
[2019-01-23 15:38] LABS: SQUAMOUS 0-3 Few /LPF (0-3)
[2019-01-23 15:40] LABS: CASTS None Seen /LPF (None Seen); CRYSTALS None Seen /LPF (None Seen); MUCUS 0-3 Light strn/LPF (None Seen); URINE RBC 0-2 Rare /HPF (0-2)
[2019-01-23 16:12] VITALS: BP 132/60
[2019-01-23 17:08] VITALS: BP 146/67
[2019-01-23 20:00] VITALS: BP 148/66
[2019-01-24 04:00] VITALS: BP 144/54
[2019-01-24 05:04] LABS: ABSOLUTE LYMPHOCYTES 0.4 thou/uL (0.8-5.3); ABSOLUTE MONOCYTES 0.1 thou/uL (0.0-1.2); ABSOLUTE NEUTROPHILS 2.4 thou/uL (1.6-8.1); BASOPHILS 0.2 %; HEMATOCRIT 32.7 % (37.0-47.0); HEMOGLOBIN 10.7 gm/dL (12.0-15.0); LYMPHOCYTES 13.6 %; MCH 27.6 pg (26.0-34.0); MCHC 32.7 g/dL (28.0-37.0); MCV 84.3 fL (80.0-100.0); MONOCYTES 3.3 %; MPV 6.6 fl. (7.2-11.1); NUCLEATED RBCS 0 /100WBC; PLATELET COUNT* 440 thou/uL (150-400); POLYS 82.9 %; RBC 3.88 mil/uL (4.20-5.00); RDW-CV 18.3 % (10.5-14.5); WBC 2.9 thou/uL (4.0-11.0)
[2019-01-24 05:32] LABS: CALCIUM 9.1 mg/dL (8.5-10.1); CREATININE 0.5 mg/dL (0.6-1.3); MAGNESIUM 1.2 mg/dL (1.8-2.4); PHOSPHORUS* 3.1 mg/dL (2.5-4.9); POTASSIUM 3.4 mmol/L (3.5-5.1)
[2019-01-24 08:00] VITALS: BP 150/70
[2019-01-24 12:34] VITALS: BP 120/89
[2019-01-24 15:23] VITALS: BP 134/67
[2019-01-24 19:50] VITALS: BP 148/68
[2019-01-25] VITALS: BP 140/84
[2019-01-25 04:00] VITALS: BP 151/66
[2019-01-25 04:56] LABS: ABSOLUTE LYMPHOCYTES 0.9 thou/uL (0.8-5.3); ABSOLUTE MONOCYTES 0.5 thou/uL (0.0-1.2); BASOPHILS 0.1 %; EOSINOPHILS 0.1 %; HEMATOCRIT 32.4 % (37.0-47.0); HEMOGLOBIN 10.7 gm/dL (12.0-15.0); LYMPHOCYTES 19.6 %; MCH 27.8 pg (26.0-34.0); MCV 84.2 fL (80.0-100.0); MONOCYTES 11.7 %; MPV 6.7 fl. (7.2-11.1); NUCLEATED RBCS 0 /100WBC; PLATELET COUNT* 456 thou/uL (150-400); POLYS 68.5 %; RBC 3.86 mil/uL (4.20-5.00); RDW-CV 17.9 % (10.5-14.5); WBC 4.4 thou/uL (4.0-11.0)
[2019-01-25 05:13] LABS: CALCIUM 9.6 mg/dL (8.5-10.1); CREATININE 0.5 mg/dL (0.6-1.3); MAGNESIUM 1.2 mg/dL (1.8-2.4)
[2019-01-25 05:17] LABS: POTASSIUM 2.7 mmol/L (3.5-5.1)
[2019-01-25 08:43] VITALS: BP 151/71
--- NOTE | 2019-01-25 11:05 | EKG ---
[place] [address] ELECTROCARDIOGRAM REPORT Name: YIMI FULLER Room: [address] ADM IN M.R.#: [id number] Admission: 01/23/19 Attend Phys: Lidia Diggs MD Discharge: Date of : 47 Report #: [id number] THIS REPORT FOR: //name// [facility] ED Test Date: 2019-01-23 Test Time: 14:05:15 Pat Name: YIMI FULLER Department: Room: [facility] Gender: F Tack Maker: MS : 1945 Requested By: Maverick Mandujano Order Number: [id number] MD: Sabas Yanez Measurements Intervals [place] Rate: 82 P: 80 [place]: 167 QRS: -48 QRSD: 115 T: 193 QT: 356 QTc: 416 Interpretive Statements Sinus rhythm Ventricular bigeminy Incomplete left bundle branch block LVH with secondary repolarization abnormality Anterior Q waves, possibly due to LVH Baseline wander in lead(s) V1 Compared to ECG 01/20/2019 02:42:30 Sinus tachycardia no longer present Electronically Signed On 01-25-2019 11:05:13 CDT by Sabas Yanez [email or web address] <ELECTRONICALLY SIGNED> By: Sabas Yanez MD, [facility] 01/25/19 1105 1405 1405 Sabas Yanez MD, [facility] /EPI
[2019-01-25 11:42] VITALS: BP 149/73
[2019-01-25 16:00] VITALS: BP 150/74
[2019-01-25 17:06] LABS: MAGNESIUM 1.8 mg/dL (1.8-2.4); POTASSIUM 4.6 mmol/L (3.5-5.1)
[2019-01-25 19:50] VITALS: BP 165/85
[2019-01-26 05:39] LABS: CALCIUM 9.3 mg/dL (8.5-10.1); CREATININE 0.5 mg/dL (0.6-1.3); MAGNESIUM 1.4 mg/dL (1.8-2.4); POTASSIUM 3.9 mmol/L (3.5-5.1)
[2019-01-26 08:00] VITALS: BP 153/56
[2019-01-26 11:42] VITALS: BP 137/70
[2019-01-26 12:15] VITALS: BP 137/70
[2019-01-26] MEDS ORDERED: SENNA PLUS TAB1 EACH PO (14:28)
[2019-01-26] MEDS ORDERED: MILK OF MA400 MG/5 M PO (14:32)
[2019-01-26] MEDS ORDERED: SEROQUEL 50 MG50 MG PO (14:33)
== END 2019-01-26 16:45 | disposition home health service (06) | DRG 871 ==
LOC: M.ERS 13:26 → M.2W 15:41 → M.TBA-ER 15:41 → M.2W 17:17
PROVIDERS: Family Medicine; ADMIT Family Medicine
DX: A41.9 Sepsis, unspecified organism (principal); E43 Unspecified severe protein-calorie malnutrition; N39.0 Urinary tract infection, site not specified; F03.91 Unspecified dementia, unspecified severity, with behavioral disturbance; K59.00 Constipation, unspecified; E11.9 Type 2 diabetes mellitus without complications; K21.9 Gastro-esophageal reflux disease without esophagitis; J45.909 Unspecified asthma, uncomplicated; F41.9 Anxiety disorder, unspecified; E03.9 Hypothyroidism, unspecified; Z96.652 Presence of left artificial knee joint; G40.909 Epilepsy, unspecified, not intractable, without status epilepticus; M79.7 Fibromyalgia; F39 Unspecified mood [affective] disorder; R13.10 Dysphagia, unspecified; K22.70 Barrett's esophagus without dysplasia; E87.6 Hypokalemia; E83.42 Hypomagnesemia; F31.9 Bipolar disorder, unspecified; B95.5 Unspecified streptococcus as the cause of diseases classified elsewhere; G89.29 Other chronic pain; R10.9 Unspecified abdominal pain; Z68.20 Body mass index [BMI] 20.0-20.9, adult; Z90.49 Acquired absence of other specified parts of digestive tract; Z87.442 Personal history of urinary calculi; Z85.43 Personal history of malignant neoplasm of ovary; Z90.710 Acquired absence of both cervix and uterus; Z85.42 Personal history of malignant neoplasm of other parts of uterus; I25.2 Old myocardial infarction; Z87.81 Personal history of (healed) traumatic fracture; Z88.8 Allergy status to other drugs, medicaments and biological substances; Z91.018 Allergy to other foods; Z80.49 Family history of malignant neoplasm of other genital organs; Z83.3 Family history of diabetes mellitus; Z82.49 Family history of ischemic heart disease and other diseases of the circulatory system; Z83.6 Family history of other diseases of the respiratory system; Z79.899 Other long term (current) drug therapy; Z91.041 Radiographic dye allergy status

== ENCOUNTER 2019-02-21 16:47 | Emergency (ER) | payer MEDICARE, OTHER ==
[~2019-02-21] VITALS: Ht 152.4 cm; Wt 75.3 kg
[~2019-02-21 16:47] MED LIST changes: +MILK OF MA400 MG/5 M PO; +SENNA PLUS TAB1 EACH PO; +SEROQUEL 50 MG50 MG PO
[2019-02-21 17:38] LABS: ABSOLUTE EOSINOPHILS 0.4 thou/uL (0.0-0.7); ABSOLUTE MONOCYTES 0.8 thou/uL (0.0-1.2); BASOPHILS 0.9 %; EOSINOPHILS 7.8 %; HEMATOCRIT 31.2 % (37.0-47.0); HEMOGLOBIN 10.1 gm/dL (12.0-15.0); LYMPHOCYTES 18.6 %; MCH 28.4 pg (26.0-34.0); MCHC 32.5 g/dL (28.0-37.0); MCV 87.2 fL (80.0-100.0); MONOCYTES 14.9 %; MPV 6.7 fl. (7.2-11.1); NUCLEATED RBCS 0 /100WBC; PLATELET COUNT* 385 thou/uL (150-400); POLYS 57.8 %; RBC 3.57 mil/uL (4.20-5.00); RDW-CV 22.1 % (10.5-14.5); WBC 5.2 thou/uL (4.0-11.0)
[2019-02-21 17:47] LABS: URINE BILIRUBIN NEGATIVE (Negative); URINE BLOOD 3+ (Negative); URINE CLARITY SL CLOUDY; URINE COLOR YELLOW; URINE GLUCOSE-RANDOM NEGATIVE (Negative); URINE KETONES TRACE (Negative); URINE LEUKOCYTES NEGATIVE (Negative); URINE NITRITE NEGATIVE (Negative); URINE PROTEIN 2+ (Negative); URINE SPECIFIC GRAVITY >= 1.030 (1.005-1.030); URINE UROBILINOGEN 0.2 E.U./dl (0.2-1.0)
[2019-02-21 17:54] LABS: SQUAMOUS >10 Many /LPF (0-3)
[2019-02-21 17:55] LABS: CASTS None Seen /LPF (None Seen); CRYSTALS None Seen /LPF (None Seen); URINE RBC 3-10 Few /HPF (0-2); URINE WBC 0-5 Rare /HPF (0-5)
[2019-02-21 17:57] LABS: CALCIUM 8.8 mg/dL (8.5-10.1); CREATININE 0.7 mg/dL (0.6-1.3)
[2019-02-21 18:02] LABS: ALBUMIN 2.8 g/dL (3.4-5.0); TOTAL BILIRUBIN 0.1 mg/dL (<0.1-1.0); TOTAL PROTEIN 6.1 g/dL (6.4-8.2)
[2019-02-21 18:05] LABS: POTASSIUM 2.8 mmol/L (3.5-5.1)
[2019-02-21 18:32] LABS: ANISOCYTOSIS 2+; HYPOCHROMASIA Occasional; MICROCYTES Occasional; OVALOCYTES Occasional; PLATELET ESTIMATE ADEQUATE
[2019-02-21] MEDS ORDERED: ZOFRAN ODT4 MG DISSOLVE (18:39)
[2019-02-21 18:53] VITALS: BP 152/58
== END 2019-02-21 18:55 | disposition home or self-care (01) ==
LOC: M.ERS 16:47
PROVIDERS: Nurse Practitioner Family
DX: A08.4 Viral intestinal infection, unspecified (principal); R19.7 Diarrhea, unspecified; E11.9 Type 2 diabetes mellitus without complications; K21.9 Gastro-esophageal reflux disease without esophagitis; M79.7 Fibromyalgia; J45.909 Unspecified asthma, uncomplicated; F32.9 Major depressive disorder, single episode, unspecified; F03.90 Unspecified dementia, unspecified severity, without behavioral disturbance, psychotic disturbance, mood disturbance, and anxiety; F41.9 Anxiety disorder, unspecified; E03.9 Hypothyroidism, unspecified; Z90.49 Acquired absence of other specified parts of digestive tract; Z98.890 Other specified postprocedural states; Z85.43 Personal history of malignant neoplasm of ovary; Z90.710 Acquired absence of both cervix and uterus; Z85.42 Personal history of malignant neoplasm of other parts of uterus; Z96.652 Presence of left artificial knee joint; Z88.5 Allergy status to narcotic agent; Z88.6 Allergy status to analgesic agent; Z88.8 Allergy status to other drugs, medicaments and biological substances; Z91.041 Radiographic dye allergy status; Z91.018 Allergy to other foods

== ENCOUNTER 2019-02-23 16:31 | Emergency (ER) | payer MEDICARE, OTHER ==
[~2019-02-23] VITALS: Ht 152.4 cm; Wt 59.0 kg
[~2019-02-23 16:31] MED LIST changes: +ZOFRAN ODT4 MG DISSOLVE
[2019-02-23 17:19] LABS: URINE BILIRUBIN NEGATIVE (Negative); URINE BLOOD NEGATIVE (Negative); URINE CLARITY CLEAR; URINE COLOR YELLOW; URINE GLUCOSE-RANDOM NEGATIVE (Negative); URINE KETONES NEGATIVE (Negative); URINE LEUKOCYTES-REFLEX TRACE (Negative); URINE NITRITE-REFLEX NEGATIVE (Negative); URINE PROTEIN NEGATIVE (Negative); URINE UROBILINOGEN 0.2 E.U./dl (0.2-1.0)
[2019-02-23 17:29] LABS: BACTERIA-REFLEX 1-9 Few /HPF (None Seen); CASTS None Seen /LPF (None Seen); CRYSTALS None Seen /LPF (None Seen); SQUAMOUS 4-10 Moderate /LPF (0-3); URINE RBC 0-2 Rare /HPF (0-2); URINE WBC-REFLEX 0-5 Rare /HPF (0-5)
[2019-02-23 17:33] LABS: ABSOLUTE BASOPHILS 0.1 thou/uL (0.0-0.2); ABSOLUTE EOSINOPHILS 0.2 thou/uL (0.0-0.7); ABSOLUTE LYMPHOCYTES 0.7 thou/uL (0.8-5.3); ABSOLUTE MONOCYTES 0.5 thou/uL (0.0-1.2); ABSOLUTE NEUTROPHILS 1.2 thou/uL (1.6-8.1); EOSINOPHILS 8.1 %; HEMOGLOBIN 9.5 gm/dL (12.0-15.0); LYMPHOCYTES 27.1 %; MCH 28.6 pg (26.0-34.0); MCHC 32.9 g/dL (28.0-37.0); MCV 87.1 fL (80.0-100.0); MONOCYTES 17.9 %; MPV 6.8 fl. (7.2-11.1); NUCLEATED RBCS 0 /100WBC; PLATELET COUNT* 350 thou/uL (150-400); POLYS 44.9 %; RBC 3.33 mil/uL (4.20-5.00); RDW-CV 21.9 % (10.5-14.5); WBC 2.7 thou/uL (4.0-11.0)
[2019-02-23 17:39] LABS: ANION GAP 9 mmol/L (7-16); BUN 7 mg/dL (7-18); CALCIUM 8.7 mg/dL (8.5-10.1); CHLORIDE 101 mmol/L (98-107); CO2 28 mmol/L (21-32); CREATININE 0.7 mg/dL (0.6-1.3); GLUCOSE 134 mg/dL (70-99); POTASSIUM 3.8 mmol/L (3.5-5.1); SODIUM 138 mmol/L (136-145)
[2019-02-23 17:48] LABS: ALKALINE PHOSPHATASE 159 U/L (46-116); SGOT 12 U/L (15-37); SGPT 11 U/L (30-65); TOTAL BILIRUBIN 0.1 mg/dL (<0.1-1.0); TOTAL PROTEIN 6.4 g/dL (6.4-8.2); TROPONIN-I LEVEL <0.06 ng/mL (<0.06)
[2019-02-23 17:50] LABS: ANISOCYTOSIS 2+
[2019-02-23] MEDS ORDERED: NORCO 5-325 TA1 EACH PO (18:27)
[2019-02-23 18:47] VITALS: BP 152/56
--- NOTE | 2019-02-24 08:28 | NUR ---
RECEIVED CALL FROM JOSEP/[facility]. SHE ASKED THAT INFO BE FAXED FROM LAST STAY PT WANTING TO BE ADMITTED TO SNF. FAXED H/P AND DC SUMMARY FROM JANUARY ADMIT TO HER
--- NOTE | 2019-02-24 10:47 | EKG ---
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 : 1945 Requested By: Sergio Dhaliwal Order Number: [id number] MD: Indra Jones Measurements Intervals [place] Rate: 74 P: 112 [place]: 217 QRS: -36 QRSD: 125 T: QT: 380 QTc: 422 Interpretive Statements Sinus rhythm Right atrial enlargement artifact noted nonspecific t wave changes Baseline wander in lead(s) V5 Compared to ECG 01/23/2019 14:05:15 Ventricular premature complex(es) no longer present Left ventricular hypertrophy no longer present Electronically Signed On 02-24-2019 10:46:49 CDT by Indra Jones [email or web address] <ELECTRONICALLY SIGNED> By: Indra Jones MD, [facility] 02/24/19 1046 1731 1731 Indra Jones MD, [facility] /EPI
== END 2019-02-23 18:48 | disposition home or self-care (01) ==
LOC: M.ERS 16:31
PROVIDERS: Physician Assistant
DX: R10.84 Generalized abdominal pain (principal); R19.7 Diarrhea, unspecified; E11.9 Type 2 diabetes mellitus without complications; K21.9 Gastro-esophageal reflux disease without esophagitis; M79.7 Fibromyalgia; J45.909 Unspecified asthma, uncomplicated; F32.9 Major depressive disorder, single episode, unspecified; F41.9 Anxiety disorder, unspecified; E03.9 Hypothyroidism, unspecified; F03.90 Unspecified dementia, unspecified severity, without behavioral disturbance, psychotic disturbance, mood disturbance, and anxiety; Z90.710 Acquired absence of both cervix and uterus; Z85.43 Personal history of malignant neoplasm of ovary; Z88.2 Allergy status to sulfonamides; Z91.041 Radiographic dye allergy status; Z88.8 Allergy status to other drugs, medicaments and biological substances

== ENCOUNTER 2019-02-28 18:43 | Inpatient (IN) | payer MEDICARE, OTHER ==
[~2019-02-28] VITALS: Ht 152.4 cm; Wt 54.0 kg
[2019-02-28 19:00] VITALS: BP 171/77
[2019-02-28 19:43] LABS: ABSOLUTE BASOPHILS 0.1 thou/uL (0.0-0.2); ABSOLUTE EOSINOPHILS 0.2 thou/uL (0.0-0.7); ABSOLUTE LYMPHOCYTES 1.1 thou/uL (0.8-5.3); ABSOLUTE MONOCYTES 0.6 thou/uL (0.0-1.2); ABSOLUTE NEUTROPHILS 2.7 thou/uL (1.6-8.1); BASOPHILS 1.5 %; EOSINOPHILS 4.4 %; HEMATOCRIT 34.8 % (37.0-47.0); HEMOGLOBIN 11.3 gm/dL (12.0-15.0); LYMPHOCYTES 23.2 %; MCH 28.5 pg (26.0-34.0); MCHC 32.3 g/dL (28.0-37.0); MCV 88.2 fL (80.0-100.0); MONOCYTES 13.7 %; MPV 7.1 fl. (7.2-11.1); NUCLEATED RBCS 0 /100WBC; PLATELET COUNT* 292 thou/uL (150-400); POLYS 57.2 %; RBC 3.95 mil/uL (4.20-5.00); RDW-CV 21.5 % (10.5-14.5); WBC 4.7 thou/uL (4.0-11.0)
[2019-02-28 19:45] LABS: POC CA IONIZED 4.4 mg/dL (4.5-5.3); POC CREATININE 0.7 mg/dL (0.6-1.3); POC HEMOGLOBIN 11.9 g/dL (12.0-17.0); POC POTASSIUM 3.5 mmol/L (3.5-4.9)
[2019-02-28 20:00] LABS: CALCIUM 9.1 mg/dL (8.5-10.1); CREATININE 0.8 mg/dL (0.6-1.3); POTASSIUM 3.5 mmol/L (3.5-5.1)
[2019-02-28 20:01] LABS: APTT 28.3 Seconds (25.0-31.3); PROTIME 10.4 Seconds (9.20-11.50)
[2019-02-28 20:05] LABS: ALBUMIN 3.3 g/dL (3.4-5.0); TOTAL BILIRUBIN 0.2 mg/dL (<0.1-1.0); TOTAL PROTEIN 6.8 g/dL (6.4-8.2)
[2019-02-28 21:59] LABS: ANISOCYTOSIS 2+; OVALOCYTES 1+; SCHISTOCYTES 2+; TEARDROPS 1+
[2019-02-28 22:00] LABS: POLYCHROMASIA 1+
--- NOTE | 2019-02-28 22:52 | NUR ---
code stroke was charted on paper
--- NOTE | 2019-02-28 23:00 | NUR ---
PT ADMITTED TO ROOM 006 FROM ED, FAMILY INCLUDING SPOUSE PRESENT ON ARRIVAL, DR DEL VALLE AT BEDSIDE, BILAT EYE TWITCHING RESOLVED AT PRESENT TIME, NO MOVEMENT OF LEFT UPPER AND LOWER EXTREMITIES. SEIZURE PRECAUTIONS IN PLACE, FALL PRECAUTIONS IN PLACE, NO SEZIURE ACTIVITY NOTED AT PRESENT TIME. WILL CONTINUE TO MONITOR.
[2019-02-28 23:08] VITALS: BP 171/63
[2019-03-01] VITALS (22 sets, daily range): BP systolic 96–172; BP diastolic 49–81
--- NOTE | 2019-03-01 07:00 | NUR ---
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 SAO2 =>95% ON RA, CALL LIGHT IN REACH, BED ALARM ON FOR SAFETY, EMOTIONAL SUPPORT PROVIDED.
--- NOTE | 2019-03-01 09:37 | CON ---
[address] [address] CONSULTATION Name: YIMI FULLER Room: [address] IN M.R.#: [id number] Admission: 02/28/19 Attend Phys: Raghav Perez Discharge: Date of : 47 Report #: [id number] THIS REPORT FOR: //name// CC: [facility] HISTORY OF PRESENT ILLNESS: The patient is a 73-year-old female who was brought to the Emergency Room having had a seizure prior to coming to the Emergency Room, but subsequently demonstrating a left hemiparesis. At the same time, the patient also had jerking of the eyes to the left and left facial twitching. The patient is on Depakote and levetiracetam. I spoke with her and he thought she was perhaps taking the Depakote, but he did not know whether or not she was taking the levetiracetam. Apparently, she had been in a fpc, but he had taken her home. His son states that his father has trouble with his memory and he is not sure if the patient had been taking her medicine correctly because she would have been given those medications by his father. In the Emergency Room, the patient was given 2 mg of Versed and 1000 mg of intravenous Keppra. When the EEG was first begun, the patient had bilateral polyspike and wave activity, which after the administration of Versed improved to a spike and wave activity only over the right hemisphere. After the patient was given a total of approximately 1.5 mg of lorazepam and approximately half a bag of lacosamide 200 mg, she was transferred from the ER to the Intensive Care Unit, the patient was put back on the EEG and the seizure activity had stopped. In addition, the patient became somewhat more alert and had purposeful movements. I asked her if she was okay and she shook her head no. PAST MEDICAL HISTORY: Seizure disorder, diabetes, gastroesophageal reflux, Sierra's esophagus, fibromyalgia, asthma, depression and anxiety, dementia and hypothyroidism. PAST SURGICAL HISTORY: Tonsillectomy, appendectomy, nephrolithiasis, David bypass, hysterectomy for uterine cancer, right shoulder surgery, knee arthroscopy and left knee replacement. MEDICATIONS: At home, hydrocodone p.r.n., Depakote 500 mg b.i.d., Keppra 1000 mg b.i.d., Carafate 1 g q.i.d., pantoprazole 40 mg b.i.d., glipizide 5 mg daily, Megace 400 mg b.i.d., senna 2 tablets at bedtime, magnesium 30 mL daily and quetiapine 50 mg b.i.d. ALLERGIES: CONTRAST DYE, PHENOBARBITAL, PROCHLORPERAZINE, TRIMETHOBENZAMIDE, BUTORPHANOL, PREGABALIN, ERGOLOID, FENTANYL, KETOROLAC, NALOXONE, DULERA, MUSHROOMS, NALBUPHINE AND SUMATRIPTAN. VITAL SIGNS: Temperature 36.8, pulse rate 161, respiratory rate 18, blood pressure 192/79, and bedside pulse oximetry 98% on [address] [place] [address] CONSULTATION Name: YIMI FULLER Room: [address] IN Raghav.R.#: [id number] Admission: 02/28/19 Attend Phys: Raghav Perez Discharge: Date of : 47 Report #: [id number] LABORATORY DATA: Hematology: White blood cell count 4.7, hemoglobin 11.3, hematocrit 34.8, MCV 88.2 and platelet count 292,000. INR 1. Urinalysis was done on 02/23/2019 and showed trace leukocyte esterase. Chemistry: Sodium 131, potassium 3.5, chloride 100, carbon dioxide 24, BUN 12, creatinine 0.7 and glucose 225. Lactic acid 2.1. Valproic acid level 29. IMAGING STUDIES: CT scan of the head demonstrates no acute intracranial process, mild microvascular disease is noted. NEUROLOGIC EXAMINATION: When I initially saw the patient, she had nystagmus to the left. I did not see any facial twitching or twitching of the extremities. After the administration of Versed, lorazepam, levetiracetam and lacosamide, the patient then became more alert with purposeful movements. Inspection demonstrates intact cranial nerves 2 through 12. The patient had movement of both lower extremities and the right upper extremity, but not as much movement in the left upper extremity. Plantar responses were mute bilaterally. Coordination and gait cannot be tested. IMPRESSION: This patient was in status epilepticus, but the EEG shows significant improvement with generalized slowing. I now see the patient's Depakote level is subtherapeutic at 29. However, I am most likely going to switch the patient to lacosamide if at all possible with the maximum dose of levetiracetam, which would be 1500 mg b.i.d. An EEG will be ordered in the morning and I will write for p.r.n. lorazepam, but only 0.5 mg per dose as the patient is a DNR and the family does not want the patient intubated. I am concerned about giving her too many sedative medications and putting her into respiratory distress. I thank you for your kind referral of the patient and we will continue to follow her with you. <ELECTRONICALLY SIGNED> By: Catarina Barbosa DO 03/01/19 0937 [id number] [id number] Barbosa DO /nt
--- NOTE | 2019-03-01 10:35 | NUR ---
PT KNOWN TO NITA RODIRGUEZ FROM PREVIOUS ADMISSIONS. PT WAS LAST HERE IN MID-JANUARY, AT THAT TIME SHE DISCHARGED TO HOME WITH HER WITH [facility]. SPOKE WITH AT BEDSIDE. PER , FAMILY HAD MADE ARRANGEMENTS TO HAVE PT ADMITTED TO [facility], SOUNDS LIKE HE TOOK HER HOME, MAYBE THE NEXT DAY, ' SHE WAS IN THIS TINY ROOM AT THE FAR END OF THE JONES, I CAN DO A BETTER JOB OF TAKING CARE OF HER.' HE SAID THEY HAD HAD PRIVATE DUTY, SOMEONE WITH HER FOR 8 HOURS A DAY, 5 DAYS A WEEK. HE HAD MADE ARRANGEMENTS FOR THAT PERSON TO START AGAIN TODAY. HE SAID HE HAS TALKED WITH HER AND SHE CAN RESUME SERVICES WHEN PT IS DISCHARGED TO HOME. 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 UNCERTAIN FROM TALKING WITH IF PT HAD GOTTEN HOME HEALTH OR PALLIATIVE CARE SERVICES SET UP TO RESUME. SAID THEY HAD BEEN DOING OKAY AT HOME. 'I GET HER OUT IN THE CAR EVERY DAY TO TAKE HER FOR A DRIVE, SHE LIKES TO BE OUT. WE ATE AT [facility] [employer] YESTERDAY, AND THEN SHE STARTED TO FEEL BAD TO I BROUGHT HER BACK TO THE HOSPITAL.' DISCUSSED ROLE OF NITA RODRIGUEZ, WILL CONTINUE TO FOLLOW.
--- NOTE | 2019-03-01 12:46 | EKG ---
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 : 1945 Requested By: Roldan Anand Order Number: [id number] MD: Sabas Yanez Measurements Intervals [place] Rate: 109 P: 88 MT: 205 QRS: -34 QRSD: 124 T: 126 QT: 321 QTc: 433 Interpretive Statements Sinus tachycardia Atrial premature complex Consider right atrial enlargement Left bundle branch block Compared to ECG 02/23/2019 17:31:17 Atrial premature complex(es) now present Left bundle-branch block now present T-wave abnormality no longer present Electronically Signed On 03-01-2019 12:46:22 CDT by Sabas Yanez [email or web address] <ELECTRONICALLY SIGNED> By: Sabas Yanez MD, [facility] 03/01/19 1246 31 31 Sabas Yanez MD, [facility] /EPI
--- NOTE | 2019-03-01 20:03 | NUR ---
PT ASSESSMENT CHARTED. VSS THROUGHOUT SHIFT. PT ON AND OFF AGGITATED THROUGHOUT THE DAY REQUIRING PRN ATIVAN. UNABLE TO GET PATIENT TO COOPERATE FOR MRI. WILL REATTEMPT IN THE MORNING. TIME SLOT SCHEDULED FOR THERE WAS NOT ADEQUATE STAFF TO ACCOMPANY PATIENT AND SHE WAS SITTING UP AND NOT DIRECTABLE. NO COMPLAINTS OF PAIN. 1:1 SITTER INTITIATED PATIENT WAS FREQUENTLY TRYING TO GET OUT OF BED. PT PULLED OUT IV IN RIGHT ANKLE. ORDERS RECEIVED TO PLACE MIDLINE-WHICH WAS PLACED IN RUE. NO OTHER COMPLAINTS. PT TO REMAIN NPO PER SPEECH. PO ANTI-SEIZURE MEDICATION CHANGED BACK TO IV PER NEUROLOGY. PT REMAINS WITH SOME LEFT SIDE NEGLECT. EEG DONE.
[2019-03-02] VITALS (17 sets, daily range): BP systolic 105–173; BP diastolic 56–85
--- NOTE | 2019-03-02 05:28 | NUR ---
PT CONTINUES 1:1 SITTER FOR IMPULSIVENESS, AGITATION, AND SAFETY. ATIVAN IVP GIVEN X 2 WITH MINIMAL EFFECT, PT YELLING/HOLLERING OUT "HELP ME, MELCHOR, JULI, AND PLEASE, FOLLOWING SIMPLE COMMANDS AT TIMES, DIFFICULT TO REDIRECT, COMBATIVE AT TIMES, NO SEIZURE LIKE ACTIVITY NOTED THIS SHIFT. 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 NS CONTINUES 100CC/HR VIA INFUSION PUMP PER ORDER, SEIZURE AND FALL PRECAUTIONS REMAIN IN PLACE.
--- NOTE | 2019-03-02 10:26 | NUR ---
PT UNABLE TO GO TO MRI DUE TO NON COMPLIANCE.
--- NOTE | 2019-03-02 13:26 | NUR ---
SPOKE WITH JOSEP AT [facility] ([phone]). SHE CONFIRMS PT WAS THERE LAST WEEK, STAYED LESS THAN 24 HOURS. PT'S DTR OLIVIA MADE ARRANGEMENTS TO HAVE PT ADMITTED TO SNF, WITH PLANS FOR [facility]DC CARE. CAME TO VISIT PT THE NEXT DAY, PT SAID SHE WANTED TO GO HOME, AND SINCE PT HADN'T BEEN DECLARED INCOMPETENT, [place] HAD TO LET PT RETURN HOME WITH HER . JOSEP NOTIFIED DTR AT THAT TIME, DTR IS OUT OF TOWN, WILL BE BACK IN TOWN TOMORROW JOSEP THINKS. JOSEP FAXED AN UPDATED DPOA, NAMING DTR OLIVIA AND SON GENIA DPOA AGENTS. COPY PLACED ON THE CHART. OLIVIA PHONE NUMBER [phone]
--- NOTE | 2019-03-02 18:37 | NUR ---
PT ASSESSMENT CHARTED. VSS THROUGHOUT THE SHIFT. PT IS M/S STATUS. UP TO CHAIR WITH ASSIST OF 2 AND A GATE BELT. PT ABLE TO TAKE SMALL SIPS WITHOUT A STRAW AND TAKE A BITE OF APPLESAUCE BUT SHE WAS NON COMPLIANT AND SAID SHE DIDN'T WANT ANY MORE. THIS INFORMATION WAS GIVEN TO SPEECH THERAPY. THEY WERE UNABLE TO SEE HER TODAY DUE TO PATIENT SLEEPING WHEN THEY VISITED HER. PAIN UNRATABLE IN HER BACK AND LEGS RELIEVED WITH PRN IV MORPHINE ALSO ORDERED HEATING PAD. ATTEMPTED TO TAKE PATIENT TO MRI AGAIN AND WAS UNSUCCESSFUL. NEW ORDER PLACED IN FOR TOMORROW. PRN SEDATION IN COMPUTER TO REATTEMPT IN THE MORNING. PT CONFUSED AND UNABLE TO FOLLOW COMMANDS. 1:1 SITTER IN THE ROOM WITH PATIENT.
--- NOTE | 2019-03-02 22:41 | NUR ---
VERBAL REPORT GIVEN, PT TO TRANFER TO ROOM 230, AWAITING TELE NURSING STAFF TO ARRIVE FOR TRANFER
--- NOTE | 2019-03-02 23:00 | NUR ---
PT TRANFERRED VIA BED BY SKILLS AUDITOR AND TERRAZZO LAYER HELPER TO ROOM 230, ALL BELONGINGS SENT WITH PATIENT.
--- NOTE | 2019-03-03 02:53 | NUR ---
RECEIVED PT FROM ICU AT APPROX 2300. PT IS SEDATED. VSS ON ROOM AIR. REASSESSMENT DONE AND CHARTED. SEIZURE AND FALL PRECAUTIONS IN PLACE. CLOSELY MONITORED.
[2019-03-03 08:00] VITALS: BP 149/61
--- NOTE | 2019-03-03 15:25 | NUR ---
CONTINUE TO FOLLOW, DISCUSSED WITH DR FOX, HE WROTE DC ORDERS PENDING [facility] FOR SWALLOWING AND NEURO FOR SEIZURE MEDS. STILL AWAITING TO SEE PT TODAY. CALLED AND SPOKE WITH DTR/OLIIVA WHO IS DPOA RE: RETURN TO [facility]. OLIVIA WAS UNSURE THAT'S WHAT THEY WANTED TO DO. DISCUSSED OTHER LTC/MEMORY CARE OPTIONS WITH HER. SHE WANTED [facility] CHECKED. CALLED AND FAXED REFERRAL TO [facility], AT [facility] ACCEPTED PT BUT THEN CALLED BACK AND DECLINED D/T PREVIOUS STAY AND BEHAVIORS. DTR THEN ASKED ABOUT [facility] REFERRAL. DTR ALSO STATED THAT SHE WOULD CONSIDER PT RETURNING TO [facility] IF SHE WERE IN A DIFFERENT ROOM THAT HAD A FUNCTIONING BATHROOM AND A WINDOW. CALLED AND UPDATED JOSEP WITH REQUEST. SHE STATED THEY WERE WORKING ON A ROOM, BUT UNSURE WHEN IT WOULD BE DONE. SHE WILL CALL CM BACK. STILL WAITING TO HEAR DECISION FROM MARIJA ALSO. WILL FOLLOW
[2019-03-03 15:32] VITALS: BP 169/68
--- NOTE | 2019-03-03 16:41 | NUR ---
PT A&O TO SELF. VITALS STABLE. UP WITH 1 ASSIST TO CAMMODE. PICC PATENT, INFUSING. PT GOT COMBATIVE AND AGITATED, BECAME CALM WITH ATIVAN AND HALDOL. CURRENTLY IN ROOM. SERRANO PATENT. NPO DUE TO SPEECH FAIL. FALL PRECAUTIONS IN PLACE. SEIZURE PRECAUTIONS IN PLACE. CALL LIGHT WITHIN REACH. WILL CONTINUE TO MONITOR.
[2019-03-04] VITALS: BP 170/78
--- NOTE | 2019-03-04 01:23 | NUR ---
ASSUMED CARE OF PT AT 1900. PT IS VERY CONFUSED AND TRYING TO TAKE OUT IV AND GET OUT OF BED. PT HAS A SERRANO IN PLACE. ION. ROXANNA. PT IS SLEEPING COMFORTABLY AT THIS TIME. RESPIRATIONS ARE EVEN AND NONLABORED. WILL CONTINUE TO MONITOR PT.
[2019-03-04 09:26] VITALS: BP 152/62
--- NOTE | 2019-03-04 09:30 | NUR ---
REC'D REPORT FROM NOC RN, ASSUMED CARE OF PATIENT APPROX 0730. SLEEPING, NOT ABLE TO COMMUNICATE NEEDS TO STAFF. ASSESSMENT COMPLETE, VS OBTAINED. MED/SURG STATUS. O2 100% RA. SERRANO CATHETER TO DEPENDENT MATTHEW ARMSTRONG, YELLOW URINE. SEIZURE PRECAUTIONS IN PLACE. FREQUENT CHECKS FOR PATIENT NEEDS AND SAFETY.
--- NOTE | 2019-03-04 11:15 | NUR ---
HEARD BACK FROM JOSEP/[facility]. THEY DO HAVE THE BED AVAILABLE FOR PT TODAY THAT DTR HAD REQUESTED AND CAN ACCEPT PT. WILL DISCUSS WITH DR. MARTINEZ IN COMPUTER. DISCUSSED WITH NURSE
[2019-03-04 13:00] VITALS: BP 170/78
[2019-03-04] MEDS ORDERED: VIMPAT200 MG PO (14:23)
--- NOTE | 2019-03-04 15:29 | NUR ---
RECEIVED CALL FROM DTPamela/OLIVIA. SHE LEFT AND IS GETTING PT'S ROOM READY AT [facility] PRIOR TO HER DC TODAY. OLIVIA STATED PT IS CURRENT WITH [facility]. CALLED AND FAXED DC ORDERS AND H/P TO [facility] TO NOTIFY OF DC DISPOSITION
--- NOTE | 2019-03-04 15:55 | NUR ---
PATIENT HAS COMPLETE DC ORDER. DC INSTRUCTIONS AND MEDICATION LIST PROCESSED. SNF DC, CALLED REPORT TO RECEIVING NURSE AT [facility]. CONTACT INFO GIVEN FOR QUESTIONS TO NURSE. DC INSTRUCTIONS AND MED LIST INCLUDED IN PACKET PREPARED FOR FACILITY. TRANSPORTER HERE TO SPRINKLER INSPECTOR PATIENT APPROX 1545. PATIENT LEFT UNIT VIA WC AND TRANSPORTER, SPOUSE FOLLOWED. TRANSPORTER TO TAKE PATIENT TO [facility] VIA WC VAN.
--- NOTE | 2019-03-04 17:55 | NUR ---
REC'D CLARIFICATION FOR DC MEDICATION DEPAKOTE FROM DR. ROONEY. DEPAKOTE IS TO BE DISCONTINUED. PATIENT WILL CONTINUE TO RECEIVE KEPPRA AND VIMPAT FOR SEIZURE CONTROL. CALLED PATRICK AT [facility] TO UPDATE HER ABOUT THIS MEDICATION CHANGE.
== END 2019-03-04 16:19 | DRG 100 ==
LOC: M.ERS 18:43 → M.ICU 20:54 → M.TBA-ER 20:54 → M.ICU 22:10 → M.2W 03-02 23:01
PROVIDERS: Emergency Medicine; Emergency Medicine Emergency Medical Services; ADMIT Internal Medicine
DX: G40.901 Epilepsy, unspecified, not intractable, with status epilepticus (principal); G93.41 Metabolic encephalopathy; J98.11 Atelectasis; F03.91 Unspecified dementia, unspecified severity, with behavioral disturbance; E11.9 Type 2 diabetes mellitus without complications; K21.9 Gastro-esophageal reflux disease without esophagitis; J45.909 Unspecified asthma, uncomplicated; F32.9 Major depressive disorder, single episode, unspecified; F41.9 Anxiety disorder, unspecified; Z66 Do not resuscitate; E03.9 Hypothyroidism, unspecified; Z96.652 Presence of left artificial knee joint; G83.84 Todd's paralysis (postepileptic); Z90.49 Acquired absence of other specified parts of digestive tract; Z87.442 Personal history of urinary calculi; Z85.43 Personal history of malignant neoplasm of ovary; Z90.710 Acquired absence of both cervix and uterus; Z85.42 Personal history of malignant neoplasm of other parts of uterus; I25.2 Old myocardial infarction; Z87.81 Personal history of (healed) traumatic fracture; Z91.041 Radiographic dye allergy status; Z88.8 Allergy status to other drugs, medicaments and biological substances; Z91.018 Allergy to other foods; Z80.8 Family history of malignant neoplasm of other organs or systems; Z83.3 Family history of diabetes mellitus; Z82.49 Family history of ischemic heart disease and other diseases of the circulatory system; Z83.6 Family history of other diseases of the respiratory system

== ENCOUNTER 2019-03-06 09:45 | Emergency (ER) | payer MEDICARE, OTHER ==
[~2019-03-06] VITALS: Ht 153 cm; Wt 53.0 kg
[~2019-03-06 09:45] MED LIST changes: +VIMPAT200 MG PO
[2019-03-06 10:22] LABS: ABSOLUTE BASOPHILS 0.1 thou/uL (0.0-0.2); ABSOLUTE LYMPHOCYTES 0.7 thou/uL (0.8-5.3); ABSOLUTE MONOCYTES 0.6 thou/uL (0.0-1.2); ABSOLUTE NEUTROPHILS 6.2 thou/uL (1.6-8.1); BASOPHILS 0.7 %; EOSINOPHILS 0.5 %; HEMATOCRIT 37.8 % (37.0-47.0); HEMOGLOBIN 12.3 gm/dL (12.0-15.0); LYMPHOCYTES 9.1 %; MCH 28.7 pg (26.0-34.0); MCHC 32.7 g/dL (28.0-37.0); MCV 87.8 fL (80.0-100.0); MONOCYTES 8.4 %; MPV 7.2 fl. (7.2-11.1); NUCLEATED RBCS 0 /100WBC; PLATELET COUNT* 259 thou/uL (150-400); POLYS 81.3 %; RDW-CV 22.8 % (10.5-14.5); WBC 7.7 thou/uL (4.0-11.0)
[2019-03-06 10:29] LABS: ANION GAP 11 mmol/L (7-16); BUN 11 mg/dL (7-18); CALCIUM 9.3 mg/dL (8.5-10.1); CHLORIDE 99 mmol/L (98-107); CO2 31 mmol/L (21-32); CREATININE 0.9 mg/dL (0.6-1.3); GLUCOSE 185 mg/dL (70-99); SODIUM 141 mmol/L (136-145)
[2019-03-06 10:32] LABS: POTASSIUM 2.3 mmol/L (3.5-5.1)
[2019-03-06 10:38] LABS: ALBUMIN 3.3 g/dL (3.4-5.0); ALKALINE PHOSPHATASE 150 U/L (46-116); SGOT 20 U/L (15-37); SGPT 13 U/L (30-65); TOTAL BILIRUBIN 0.4 mg/dL (<0.1-1.0); TOTAL PROTEIN 7.1 g/dL (6.4-8.2); TROPONIN-I LEVEL <0.06 ng/mL (<0.06)
[2019-03-06 10:46] LABS: APTT 28.6 Seconds (25.0-31.3); PROTIME 10.6 Seconds (9.20-11.50)
[2019-03-06 11:43] LABS: PLATELET ESTIMATE ADEQUATE
[2019-03-06 11:44] LABS: ANISOCYTOSIS 2+
[2019-03-06 12:37] VITALS: BP 156/70
--- NOTE | 2019-03-09 12:54 | EKG ---
[place] [address] ELECTROCARDIOGRAM REPORT Name: YIMI FULLER Room: [facility]#: [id number] Admission: 03/06/19 Attend Phys: Discharge: 03/06/19 Date of : 47 Report #: [id number] THIS REPORT FOR: //name// [facility] ED Test Date: 2019-03-06 Test Time: 10:31:28 Pat Name: YIMI FULLER Department: Room: Gender: F Director Of Partnerships: ETELVINA : 1945 Requested By: Maverick Mandujano Order Number: [id number] MD: Indra Jones Measurements Intervals [place] Rate: 68 P: 70 [place]: 187 QRS: -56 QRSD: 131 T: QT: 404 QTc: 430 Interpretive Statements Sinus rhythm LAFB LVH with secondary repolarization abnormality Anterior Q waves, possibly due to LVH Compared to ECG 02/28/2019 Sinus tachycardia no longer present Atrial premature complex(es) no longer present Electronically Signed On 03-09-2019 12:53:55 CDT by Indra Jones [email or web address] <ELECTRONICALLY SIGNED> By: Indra Jones MD, [facility] 03/09/19 1253 1031 1031 Indra Jones MD, [facility] /EPI
== END 2019-03-06 12:38 | disposition home or self-care (01) ==
LOC: M.ERS 09:45
PROVIDERS: Family Medicine
DX: R56.9 Unspecified convulsions (principal); R41.82 Altered mental status, unspecified; E11.9 Type 2 diabetes mellitus without complications; M79.7 Fibromyalgia; J45.909 Unspecified asthma, uncomplicated; F32.9 Major depressive disorder, single episode, unspecified; F41.9 Anxiety disorder, unspecified; E03.9 Hypothyroidism, unspecified; F03.90 Unspecified dementia, unspecified severity, without behavioral disturbance, psychotic disturbance, mood disturbance, and anxiety; Z88.8 Allergy status to other drugs, medicaments and biological substances; Z90.89 Acquired absence of other organs; Z90.49 Acquired absence of other specified parts of digestive tract; Z90.710 Acquired absence of both cervix and uterus; Z96.652 Presence of left artificial knee joint; Z88.4 Allergy status to anesthetic agent; Z88.6 Allergy status to analgesic agent; Z91.041 Radiographic dye allergy status; Z91.018 Allergy to other foods

== ENCOUNTER 2019-03-30 09:09 | Inpatient (IN) | payer MEDICARE, OTHER ==
[~2019-03-30] VITALS: Ht 157.5 cm; Wt 59.8 kg
--- NOTE | ~2019-03-30 | CON ---
[address] [address] CONSULTATION Name: YIMI FULLER Room: [address] IN M.R.#: [id number] Admission: 03/30/19 Attend Phys: Lidia Diggs MD Discharge: Date of : 47 Report #: [id number] THIS REPORT FOR: //name// CC: Carol Diggs DATE OF SERVICE: 03/31/2019 CHIEF COMPLAINT: Followup of left lower extremity cellulitis with ulceration of the dorsal fourth toe, aerobic and anaerobic swab cultures were taken yesterday, pending. She is on parenteral vancomycin and cefepime. She has concomitant urinary tract infection, she is lethargic and unresponsive to verbal command. X-ray is negative for osteomyelitis to left fourth toe. There is a foreign metallic object located anterior to the talus consistent with a sewing needle. No signs of abscess. The object is stable in comparison to prior radiographs. LABORATORY DATA: WBC 13.3, RBC of 3.11, hemoglobin 8.9, hematocrit 27.9. BUN 24 and creatinine 0.7. PHYSICAL EXAMINATION: Ulceration to the dorsal aspect of the left fourth digit, has red granular base with no exposed bone, tendon or joint. No purulence, no communication to underlying structures. Inflammation of the toe somewhat decreased since yesterday, although the left lower leg still has advanced inflammation consistent with cellulitis. No open lesions noted elsewhere to the extremity. No pallor, cyanosis or signs of acute vascular ____ either extremity. IMPRESSION: Cellulitis, left lower extremity with ulceration of the dorsal fourth toe. PLAN: I debrided the ulceration with scissors and forceps to remove slough, callus, and slight amount of subcutaneous tissue. Bleeding was stopped with pressure. The wound was cleansed and dressed with Aquacel and covered with gauze. No further imaging studies are recommended at present. Continue daily wound care and parenteral antibiotics. By: [id number] Kirkpatrick DPM /damian
--- NOTE | ~2019-03-30 | EEG ---
[address] [address] EEG STUDY REPORT Name: YIMI FULLER Room: [address] IN .R.#: [id number] Admission: 03/30/19 Attend Phys: Lidia Diggs MD Discharge: Date of : 47 Report #: [id number] THIS REPORT FOR: //name// CC: Carol Diggs DATE OF SERVICE: 03/30/2019 This patient is being evaluated for unresponsiveness. EEG was done by placing the electrode by standard 10-20 system of electrode placement. Both referential and sequential montages were used for recording. Background activity in this patient's EEG is about 8 Hz and 30 microvolt. Photic stimulation is unremarkable. The patient is unresponsive. Throughout the record, no active epileptiform activity was noticed. IMPRESSION: This patient's EEG is poorly formed and disorganized. There is nonspecific abnormality, which can occur with encephalopathy, effect of psychotropic medication, dementia, etc. Clinical correlation is recommended. By: [id number] Townsend MD /nt
--- NOTE | ~2019-03-30 | CON ---
[address] [address] CONSULTATION Name: YIMI FULLER Room: [address] IN M.R.#: [id number] Admission: 03/30/19 Attend Phys: Lidia Diggs MD Discharge: Date of : 47 Report #: [id number] THIS REPORT FOR: //name// CC: Carol Diggs HISTORY OF PRESENT ILLNESS: A 73-year-old female well known to me from many years of diabetic foot care. She was admitted through the Emergency Room for unresponsiveness and fever. Podiatry was consulted for a wound to the left dorsal fourth toe with left lower extremity cellulitis. She has a longstanding history of type 2 diabetes mellitus with peripheral neuropathy. She has a history of urosepsis, urine culture pending. She is unresponsive and would not wake up. Currently on parenteral vancomycin and cefepime. PAST MEDICAL HISTORY: Significant for dementia, seizure disorder, type 2 diabetes mellitus, bipolar disorder, chronic pain, fibromyalgia, hypothyroid, and Sierra's esophagitis. I reviewed the medications. I reviewed the patient's allergies and medications in the EMR. Blood cultures pending. LABORATORY DATA: WBC 18.8, RBC 3.84, hemoglobin 11.2, hematocrit 34.3, platelets 277. BUN 21, creatinine 0.9, glucose 172, albumin 2.6. PHYSICAL EXAMINATION: Full thickness wound to the left dorsal fourth toe overlying the PIP joints. It measures 0.8 x 0.8 x 0.1 cm. There is overlying roof of skin with underlying purulence. Upon debridement, there was a red granular base with no exposed bone, tendon or joint. No underlying fluctuance or crepitation. The wound does not communicate with the underlying joint. There does not appear to be any tendon involvement. The left lower extremity is inflamed with circumferential cellulitis from the ankle to below the knee. Nonpalpable pedal pulses bilaterally, although both feet are warm to the touch. Capillary refill less than one second to left fourth toe. No gangrene or signs of acute vascular embarrassment. No other skin lesions noted. Toenails are dystrophic with no paronychia. IMPRESSION: Ulceration, left fourth toe with infection and cellulitis of the left lower leg. PLAN: I debrided the ulceration with a scalpel and took aerobic and anaerobic culture of the wound. The wound was cleansed and debrided of the overlying skin and fibrous tissue. It was dressed with 4 x 4 and roll gauze. I ordered x-ray of the toe to evaluate for osteomyelitis which I do not favor given the clinical appearance . Daily dressing changes with Aquacel Ag and gauze ordered. I will follow her during her hospitalization. By: [id number] Kirkpatrick DPM /damian
--- NOTE | ~2019-03-30 | CON ---
[address] [address] CONSULTATION Name: YIMI FULLER Room: [address] IN M.R.#: [id number] Admission: 03/30/19 Attend Phys: Lidia Diggs MD Discharge: Date of : 47 Report #: [id number] THIS REPORT FOR: //name// CC: Carol Diggs DATE OF SERVICE: 03/31/2019 HISTORY OF PRESENT ILLNESS: This is a 73-year-old female patient who was evaluated by me for the possibility of seizure. I had seen this patient in the past. Dr. Barbosa, another neurologist, also has seen this patient. This patient has a history of dementia as well as seizure disorder. She also has a bipolar disorder and evaluation is difficult. She is DNR. I cannot tell if anybody has noticed or having any seizure. She came to Emergency Room complaining of fatigue. She was having a temperature of 102 degrees. Apparently, she was unresponsive at one time, but now she does respond. REVIEW OF SYSTEMS: Positive for diabetes, GERD, fibromyalgia, tonsillectomy, appendectomy, ovarian cancer, David bypass, hysterectomy, asthma, depression, non-STEMI, hypothyroidism, knee arthroscopy, right shoulder surgery, left knee replacement, tibial-fibular fracture, left arm fracture, seizure disorder, dementia, psychiatric problem, history of encephalitis that was her relevant 14-point review of system. PAST MEDICAL HISTORY: Positive for dementia and seizures. FAMILY HISTORY: Unavailable. SOCIAL HISTORY: She lives in a senior living. PHYSICAL EXAMINATION: NEUROLOGIC: Her examination is difficult. She is somewhat responsive. She keeps her eyes open. She did not open her eyes even after repeated requests. I could not examine the cranial nerve. I asked her to move all 4 extremities and asked for sensation, she did not cooperate. There is no meningeal sign in this patient. She will not do cerebellar sign. She is moderately built individual who does not have any dysmorphic features of eyes, ears and face. EXTREMITIES: She has some edema in the lower extremities, especially on the left. I do not know what her baseline is. Pulses are difficult to feel. CARDIAC AND RESPIRATORY: Examinations appear unremarkable. VITAL SIGNS: Blood pressure is 169/83, respirations 18, pulse is 98, temperature is 97.9. LABORATORY DATA: White count was 13.3 and it was 18.8 when she came in. Her sodium is normal. She did have a CT scan of the head, which [place] [address] CONSULTATION Name: YIMI FULLER Room: [address]#: [id number] Admission: 03/30/19 Attend Phys: Lidia Diggs MD Discharge: Date of : 47 Report #: [id number] IMPRESSION: It is difficult to tell what the patient's symptoms are from. Most likely etiology is encephalopathy, probably because of urinary tract infection. Other sepsis are also possible. RECOMMENDATION: 1. I will continue the same medication for the time being. 2. Present episode does not appear to be secondary to seizure and probably more related to encephalopathy secondary to some infection. 3. If EEG does not show any seizure activity, we can continue to watch her for seizure and continue the same medications for the time being. Thank you very much for this referral and if you have any question, please feel free to contact me. By: [id number] Townsend MD /nt
[~2019-03-30 09:09] MED LIST changes: -CYMBALTA60 MG PO; -FOLBIC RF TABL1 EACH PO; -IRON325 PO
[2019-03-30 09:10] VITALS: BP 161/62
--- NOTE | 2019-03-30 09:15 | NUR ---
PT ALLIOA CONTACTED MESSAGE LEFT.
[2019-03-30] MEDS ORDERED: ATIVAN0.5 MG PO (09:28)
[2019-03-30 09:35] LABS: HEMATOCRIT 34.3 % (37.0-47.0); HEMOGLOBIN 11.2 gm/dL (12.0-15.0); MCH 29.1 pg (26.0-34.0); MCHC 32.6 g/dL (28.0-37.0); MCV 89.3 fL (80.0-100.0); MPV 7.2 fl. (7.2-11.1); NUCLEATED RBCS 0 /100WBC; PLATELET COUNT* 277 thou/uL (150-400); RBC 3.84 mil/uL (4.20-5.00); RDW-CV 22.6 % (10.5-14.5); WBC 18.8 thou/uL (4.0-11.0)
[2019-03-30 09:42] LABS: INR 1.1; PROTIME 11.6 Seconds (9.20-11.50)
[2019-03-30 09:48] LABS: ANION GAP 8 mmol/L (7-16); BUN 21 mg/dL (7-18); CHLORIDE 96 mmol/L (98-107); CO2 34 mmol/L (21-32); CREATININE 0.9 mg/dL (0.6-1.3); GLUCOSE 172 mg/dL (70-99); SODIUM 138 mmol/L (136-145)
[2019-03-30 10:00] LABS: ABSOLUTE LYMPHOCYTES 0.4 thou/uL (0.8-5.3); ABSOLUTE MONOCYTES 0.2 thou/uL (0.0-1.2); ABSOLUTE NEUTROPHILS 18.2 thou/uL (1.6-8.1); ATYPICAL LYMPHS 1 %; PLATELET ESTIMATE ADEQUATE
[2019-03-30 10:01] LABS: ANISOCYTOSIS 1+
[2019-03-30 10:07] LABS: ALBUMIN 2.6 g/dL (3.4-5.0); ALKALINE PHOSPHATASE 88 U/L (46-116); LIPASE 22 U/L (73-393); NT-PRO BRAIN NAT PEPTIDE 17591 pg/mL (<300); SGOT 71 U/L (15-37); SGPT 35 U/L (30-65); TOTAL BILIRUBIN 0.4 mg/dL (<0.1-1.0); TOTAL PROTEIN 6.8 g/dL (6.4-8.2); TROPONIN-I LEVEL <0.06 ng/mL (<0.06)
[2019-03-30 10:08] LABS: POTASSIUM 2.9 mmol/L (3.5-5.1)
[2019-03-30 10:28] LABS: URINE BLOOD 2+ (Negative); URINE CLARITY CLEAR; URINE COLOR YELLOW; URINE GLUCOSE-RANDOM NEGATIVE (Negative); URINE KETONES NEGATIVE (Negative); URINE LEUKOCYTES-REFLEX NEGATIVE (Negative); URINE PROTEIN 2+ (Negative); URINE SPECIFIC GRAVITY >= 1.030 (1.005-1.030)
[2019-03-30 10:29] LABS: ICTOTEST (BILI CONFIRMATORY) Positive (Negative); URINE BILIRUBIN 1+ (Negative); URINE NITRITE-REFLEX POSITIVE (Negative)
[2019-03-30 10:54] LABS: BACTERIA-REFLEX >30 Many /HPF (None Seen); CASTS None Seen /LPF (None Seen); CRYSTALS None Seen /LPF (None Seen); MUCUS None Seen strn/LPF (None Seen); SQUAMOUS 0-3 Few /LPF (0-3); URINE RBC 3-10 Few /HPF (0-2)
[2019-03-30 14:06] VITALS: BP 141/62
--- NOTE | 2019-03-30 15:51 | EKG ---
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: : 1945 Requested By: Maverick Mandujano Order Number: [id number] MD: Jeferson Jarrell Measurements Intervals [place] Rate: 95 P: 69 [place]: 168 QRS: -51 QRSD: 123 T: 96 QT: 345 QTc: 434 Interpretive Statements Sinus rhythm Left bundle branch block Baseline wander in lead(s) V4 Compared to ECG 03/06/2019 10:31:28 Left bundle-branch block now present Left anterior fascicular block no longer present Left ventricular hypertrophy no longer present Early repolarization no longer present Q waves no longer present Electronically Signed On 03-30-2019 15:50:47 CDT by Jeferson Jarrell [email or web address] <ELECTRONICALLY SIGNED> By: Jeferson Jarrell MD, [facility] 03/30/19 1550 4 4 Jeferson Jarrell MD, [facility] /EPI
--- NOTE | 2019-03-30 16:40 | NUR ---
73 Y/O FEMALE ADMITTED TO TELEMETRY ROOM 215 AT APPROXIMATELY 1400 WITH AN ADMITTING DIAGNOSIS OF SEPSIS, LLE CELLULITIS, HYPOKALEMIA, AMS. VSS. SR ON MONITOR. MEDICATIONS GIVEN PER EMAR. ASSESSMENT COMPLETED CHARTED. HOURLY ROUNDING AND [facility]. CLWR.
--- NOTE | 2019-03-30 19:54 | NUR ---
CONSULTED TO PLACE A PICC FOR A PATIENT NEEDING ADDITIONAL ACCESS. ORDER AND CONSENT NOTED. PATIENT UNRESPONSIVE TO TEACHING. A #5F DOUBLE LUMEN POWER PICC WAS PLACED PER HOSPITAL POLICY AFTER A BEDSIDE TIMEOUT WAS COMPLETE. PICC WAS TRIMMED TO 38CM AND ADVANCED WITHOUT DIFFICULTY. LINE WAS CONFIRMED AT 2CM EXTERNAL USING 3CG TECHNOLOGY. LINE SECURED AND RELEASED FOR USE
[2019-03-30 20:20] VITALS: BP 120/70
[2019-03-31] VITALS (7 sets, daily range): BP systolic 100–172; BP diastolic 34–86
[2019-03-31 01:48] LABS: AMP/METHAMP Negative (Negative); BARBITURATES Negative (Negative); BENZODIAZEPINES Negative (Negative); COCAINE Negative (Negative); METHADONE Negative (Negative); OPIATES POSITIVE (Negative); PCP Negative (Negative); THC Negative (Negative)
--- NOTE | 2019-03-31 04:52 | NUR ---
PT CARE ASSUMED AT 1930. SAT MAINTAINED IN O2. PT WON'T WAKE UP OR FOLLOW COMMANDS. CALL LIGHT WITHIN REACH AND BED IN LOW POSITION. HOURLY ROUNDING DONE FOR PT SAFETY.
[2019-03-31 05:25] LABS: HEMATOCRIT 27.9 % (37.0-47.0); MCH 28.8 pg (26.0-34.0); MCV 89.8 fL (80.0-100.0); MPV 7.8 fl. (7.2-11.1); NUCLEATED RBCS 0 /100WBC; PLATELET COUNT* 203 thou/uL (150-400); RBC 3.11 mil/uL (4.20-5.00); RDW-CV 22.3 % (10.5-14.5); WBC 13.3 thou/uL (4.0-11.0)
[2019-03-31 05:27] LABS: HEMOGLOBIN 8.9 gm/dL (12.0-15.0)
[2019-03-31 05:48] LABS: CREATININE 0.7 mg/dL (0.6-1.3); MAGNESIUM 1.6 mg/dL (1.8-2.4)
[2019-03-31 05:49] LABS: POTASSIUM 3.9 mmol/L (3.5-5.1)
[2019-03-31 05:53] LABS: ABSOLUTE LYMPHOCYTES 0.4 thou/uL (0.8-5.3); ABSOLUTE MONOCYTES 0.4 thou/uL (0.0-1.2); ABSOLUTE NEUTROPHILS 12.5 thou/uL (1.6-8.1); PLATELET ESTIMATE ADEQUATE
[2019-03-31 05:54] LABS: ANISOCYTOSIS 1+; OVALOCYTES 1+; POIKILOCYTOSIS 1+; TOXIC GRANULATION Occasional
--- NOTE | 2019-03-31 14:22 | NUR ---
CM spoke with Pt's dtr, OSEAS, in room. Pt is a LTC resident at [facility] and plans for Pt to return at dc. Per dtr, when Pt dc to [facility] the last time and took the Pt out the next day, forgot to give Pt her seizure meds, which dtr contributes to Pt's decline and progression of dementia. Per dtr, that has primarily used a wc at the , Pt is able to complete transfers with [facility]. No home o2. Pt is current with [facility]. CM to contact [facility] to confirm that they are able to accept Pt back at dc. Following.
--- NOTE | 2019-03-31 16:31 | NUR ---
INITAL ASSESSMENT COMPLETED. VSS. TRACING SR/ST ON MONITOR. PT MINIMALLY RESPONSIVE. Q2 TURNS TO [place]INT[place] SKIN INTEGRITY. SERRANO IN PLACE TO DD. NO FURTHER NEEDS NOTED AT THIS TIME. HOURLY ROUNDING AND FALL PRECAUTIONS IN PLACE FOR PT SAFETY. CLWR.
--- NOTE | 2019-03-31 18:55 | NUR ---
PT NOW PULLING AT SERRANO CATH AND PICC LINES. MITTENS APPLIED.
[2019-04-01] VITALS: BP 147/56
[2019-04-01 04:06] VITALS: BP 172/84
[2019-04-01 05:11] LABS: ABSOLUTE BASOPHILS 0.1 thou/uL (0.0-0.2); ABSOLUTE LYMPHOCYTES 0.4 thou/uL (0.8-5.3); ABSOLUTE MONOCYTES 1.6 thou/uL (0.0-1.2); ABSOLUTE NEUTROPHILS 20.3 thou/uL (1.6-8.1); BASOPHILS 0.5 %; HEMATOCRIT 30.4 % (37.0-47.0); HEMOGLOBIN 9.6 gm/dL (12.0-15.0); LYMPHOCYTES 1.9 %; MCH 28.5 pg (26.0-34.0); MCHC 31.5 g/dL (28.0-37.0); MCV 90.5 fL (80.0-100.0); MONOCYTES 7.2 %; MPV 8.1 fl. (7.2-11.1); NUCLEATED RBCS 0 /100WBC; POLYS 90.4 %; RBC 3.36 mil/uL (4.20-5.00); RDW-CV 22.4 % (10.5-14.5); WBC 22.4 thou/uL (4.0-11.0)
[2019-04-01 05:19] LABS: CREATININE 0.6 mg/dL (0.6-1.3); MAGNESIUM 1.4 mg/dL (1.8-2.4); PHOSPHORUS* 2.4 mg/dL (2.5-4.9)
[2019-04-01 05:26] LABS: POTASSIUM 2.9 mmol/L (3.5-5.1)
[2019-04-01 05:49] LABS: PLATELET COUNT* 287 thou/uL (150-400)
[2019-04-01 06:00] LABS: BE -3.6 mmol/L (-2 to +3); PCO2 29.5 mmHg (35.0-45.0); pH 7.441 (7.340-7.450)
[2019-04-01 06:02] LABS: PO2 285.9 mmHg (75.0-100.0)
[2019-04-01 07:00] VITALS: BP 155/74
--- NOTE | 2019-04-01 07:41 | NUR ---
PT CARE ASSUMED AT 1930. SAT MAINTAINED IN 02 AND BIPAP. CALL LIGHT WITHIN REACH AND BED IN LOW POSITION. PT SOUNDED WET, INFORMED PHYSICIAN, ORDERS RECIEVED AND IMPLEMENTED. HOURLY ROUNDING DONE FOR PT SAFETY.
--- NOTE | 2019-04-01 10:24 | NUR ---
Spoke with , possible GIP vs. LTC with hospice tomorrow. Following.
[2019-04-01 11:58] VITALS: BP 111/64
[2019-04-01 15:46] VITALS: BP 105/52
--- NOTE | 2019-04-01 17:33 | NUR ---
INITAL ASSESSMENT COMPLETED CHARTED. VSS. TRACING SR -ST ON MONITOR. PT DOES NOT APPEAR TO BE IN ANY DISTRESS AT THSI TIME. FAMILY AT BEDSIDE. HOURLY ROUNDING AND FALL PRECAUTIONS IN PLACE FOR PT SAFETY. CLWR.
[2019-04-01 23:52] LABS: MAGNESIUM 1.6 mg/dL (1.8-2.4); POTASSIUM 3.7 mmol/L (3.5-5.1)
[2019-04-02] VITALS: BP 160/74
[2019-04-02 04:00] VITALS: BP 158/88
--- NOTE | 2019-04-02 05:25 | NUR ---
PT CARE ASSUMED AT 1930. SAT MAINTAINED IN BIPAP. PT IS UNRESPONSIVE. CALL LIGHT WITHIN REACH AND BED IN LOW POSITION. HOURLY ROUNDING DONE FOR PT SAFETY.
--- NOTE | 2019-04-02 11:19 | NUR ---
Spoke with , plan to withdraw care today. Spoke with dtr/dpoa, updated on POC. Dtr in agreement. Plan dc today to home with hospice. Faxed hospice referral to [facility] per dtr's choice. Awaiting family to arrive to hospital and hospice to come complete admission paperwork. Pt will need a hospital bed and o2 delivered to home prior to dc. Ambulance to transport. Following.
[2019-04-02] MEDS ORDERED: FOLBIC RF TABL1 EACH PO (12:19)
[2019-04-02 12:20] VITALS: BP 158/88
[2019-04-02] MEDS ORDERED: LORAZEPAM2 MG/1 M1 IVPUSH (12:27)
[2019-04-02] MEDS ORDERED: HALOPERIDOL5 MG/1 ML IVPUSH/IM (12:31)
[2019-04-02] MEDS ORDERED: MSL20MG/ML PO (12:32)
[2019-04-02] MEDS ORDERED: TRANSDERM-SCOP1 EACH TOP (12:33)
[2019-04-02 12:46] VITALS: BP 165/80
[2019-04-02] MEDS ORDERED: CYMBALTA60 MG PO (12:47)
[2019-04-02] MEDS ORDERED: LIPITOR 20 MG T20 M1 PO (12:47)
[2019-04-02] MEDS ORDERED: IRON325 PO (12:48)
[2019-04-02 13:07] VITALS: BP 165/80
[2019-04-02 16:24] VITALS: BP 165/80
--- NOTE | 2019-04-02 16:24 | NUR ---
PATIENT LEFT FOR HOSPICE AT HOME BY AMBULANCE AT 1620. PICC LINE AND SERRANO LEFT IN PER HOSPITALIST. ON 2L NC. DAUGHTER PRESENT AND WILL MEET AMBULANCE AT HOME. NO BELONGINGS AT TIME OF DISCHARGE.
== END 2019-04-02 16:24 | disposition hospice, home (50) | DRG 853 ==
LOC: M.ERS 09:09 → M.2W 10:43 → M.TBA-ER 10:43 → M.2W 13:57
PROVIDERS: Family Medicine; Internal Medicine; ADMIT Family Medicine
PROC: 05HY33Z Insertion of Infusion Device into Upper Vein, Percutaneous Approach (ICD-10-PCS; principal; 2019-03-30)
PROC: 0JBR0ZZ Excision of Left Foot Subcutaneous Tissue and Fascia, Open Approach (ICD-10-PCS; principal; 2019-03-30)
PROC: 5A09357 Assistance with Respiratory Ventilation, Less than 24 Consecutive Hours, Continuous Positive Airway Pressure (ICD-10-PCS; 2019-04-02)
DX: A41.9 Sepsis, unspecified organism (principal); G93.41 Metabolic encephalopathy; J96.01 Acute respiratory failure with hypoxia; F03.91 Unspecified dementia, unspecified severity, with behavioral disturbance; L03.116 Cellulitis of left lower limb; L97.929 Non-pressure chronic ulcer of unspecified part of left lower leg with unspecified severity; R65.20 Severe sepsis without septic shock; E11.9 Type 2 diabetes mellitus without complications; K21.9 Gastro-esophageal reflux disease without esophagitis; J45.909 Unspecified asthma, uncomplicated; F41.9 Anxiety disorder, unspecified; E03.9 Hypothyroidism, unspecified; Z96.652 Presence of left artificial knee joint; G40.909 Epilepsy, unspecified, not intractable, without status epilepticus; E87.6 Hypokalemia; F31.9 Bipolar disorder, unspecified; G89.29 Other chronic pain; E83.42 Hypomagnesemia; E83.39 Other disorders of phosphorus metabolism; K22.70 Barrett's esophagus without dysplasia; M79.7 Fibromyalgia; S90.852A Superficial foreign body, left foot, initial encounter; Z90.49 Acquired absence of other specified parts of digestive tract; Z88.8 Allergy status to other drugs, medicaments and biological substances; X58.XXXA Exposure to other specified factors, initial encounter; Y93.89 Activity, other specified; Y92.89 Other specified places as the place of occurrence of the external cause; Y99.8 Other external cause status; Z87.442 Personal history of urinary calculi; Z85.43 Personal history of malignant neoplasm of ovary; Z90.710 Acquired absence of both cervix and uterus; Z85.42 Personal history of malignant neoplasm of other parts of uterus; I25.2 Old myocardial infarction; Z87.81 Personal history of (healed) traumatic fracture; Z91.041 Radiographic dye allergy status; Z91.02 Food additives allergy status